=== PATIENT | female | born 1990 | race Caucasian/White ===

== ENCOUNTER 2017-12-17 20:32 | Emergency (ER) | payer MEDICAID, SELFPAY ==
[2017-12-17 20:56] VITALS: BP 123/92; PULSE 89; RESP 18; TEMP 36.9; O2SAT 98; BMI 39.1
--- NOTE | 2017-12-17 21:22 | HMH.EDUTC ---
[facility] [place] Clinical Impression: Environmental allergies Disposition: Home, Self-Care Condition on Discharge: Good Instructions: How to Reduce Environmental Allergens Additional Instructions: Ears look good today. If they had a lot of fluid before, they are much better. Continue Zyrtec Continue Flonase Sleep elevated Change positions slowly Referrals: Israel Mcfarlane MD [Primary Care Provider] - (See primary care or if not available, return to [facility], for any new, worsening or persisting symptoms) Time of Disposition: 21:38 Medical Decision Making Vital Signs: 12/17/17 20:56 Temperature 98.5 F Temperature Source Temporal Artery Scan Pulse Rate [Right Radial] 89 Respiratory Rate 18 Blood Pressure [Right Arm] 123/92 Blood Pressure Mean [Right Arm] 102 02 Sat by Pulse Oximetry 18 L Oxygen Delivery Method Room Air - Jordan Inquiry Pt receiving controlled substance: No [facility] [place] - General Stated complaint: Ear pain, dizziness Time Seen by Provider: 12/17/17 21:22 Mode of Arrival: Family Vehicle Source of Information: Patient Limitations: No Limitations Description of Symptoms (Recalled from Triage Doc. by RN): PT C/O EAR PAIN SINCE 12/13/17. PT HAS BEEN SEEN AND PUT ON PREDNISONE BUT HER EAR IS NOT IMPROVING. HEENT Symptoms (Recalled from RN notes): Yes (EAR PAIN) Resp Symptoms (Recalled from RN notes): No Skin Symptoms (Recalled from RN notes): No MS Symptoms (Recalled from RN notes): No Functional Status (Recalled from RN notes): NA - History of Present Illness Provider Complaint: c/o wanting to see if she has an ear infection. Dizziness intermittently today with kaila ears popping and hearing goes in and out with the popping . Denies ear pain. Reports she was seen on 12/13 for HTN and ears were bothersome then. PCP, Shaniqua, saw a lot of fluid she said behind her ear drums. Was started on steroids. Finished them yesterday. Already taking zyrtec and using flonase daily - Related Data Home Medications Medication Instructions Recorded Confirmed Cetirizine HCl 10 mg PO DAILY 12/17/17 12/17/17 Ibuprofen [Ibuprofen 600mg Tab] 600 mg PO Q6 12/17/17 12/17/17 raNITIdine HCl [Acid Control] 150 mg PO DAILY 12/17/17 12/17/17 Allergies Allergy/AdvReac Type Severity Reaction Status Date / Time amoxicillin [AMOXICILLIN] Allergy Unknown Verified 12/17/17 20:58 Penicillins [PENICILLINS] Allergy Unknown Verified 12/17/17 20:58 - Worker's Comp Is this a Worker's Comp case?: No [facility] History I have reviewed the patient's past medical history: Yes Medical History: Reports:: Gastroesophageal Reflux Disease(GERD) Denies:: Cancer, Diabetes Mellitus Type 1, Diabetes Mellitus Type 2, Hypertension, MRSA Other Medical History: Reports: Other (headaches, allergies) Other Surgeries: Yes: Appendectomy, Amputation: No Fractures: No - Social History Smoking Status: Never smoker Alcohol Intake: never - Psychiatric History Expresses thoughts of harming self/others: None Suicide Plan Description: No Plan ROS Obtained: Yes Systems reviewed as appropriate & no additional complaints - Constitutional Constitutional: Denies body ache, Denies chills, Denies fatigue, Denies fever(s), Denies poor appetite - Eyes Eyes: Denies eye discharge, Denies itchy eyes, Denies other (eye redness) - ENT Ears, Nose, Mouth, and Throat: Reports as per HPI, Denies difficulty swallowing, Denies ear discharge, Denies nasal congestion, Reports nasal discharge, Denies pain with swallowing, Reports post nasal drip, Denies sore throat - Cardiovascular Cardiovascular: Denies chest pain, Denies irregular heart rhythm - Respiratory Respiratory: No cough - Gastrointestinal Gastrointestingal: Denies: nausea, vomiting - Musculoskeletal Musculoskeletal: Denies neck pain - Integumentary/Breasts Skin/Breast: Denies rash - Neurologic Neurologic: Reports as per HPI, Reports dizziness (with rapid change position or
--- NOTE | 2017-12-17 21:28 | ED_ITS ---
[facility] [place] Disposition Clinical Impression: Environmental allergies Disposition: Home, Self-Care Condition on Discharge: Good Instructions: How to Reduce Environmental Allergens Additional Instructions: Ears look good today. If they had a lot of fluid before, they are much better. Continue Zyrtec Continue Flonase Sleep elevated Change positions slowly Referrals: Israel Mcfarlane MD [Primary Care Provider] - (See primary care or if not available, return to [facility], for any new, worsening or persisting symptoms) Time of Disposition: 21:38 Medical Decision Making Vital Signs: 12/17/17 20:56 Temperature 98.5 F Temperature Source Temporal Artery Scan Pulse Rate [Right Radial] 89 Respiratory Rate 18 Blood Pressure [Right Arm] 123/92 Blood Pressure Mean [Right Arm] 102 02 Sat by Pulse Oximetry 18 L Oxygen Delivery Method Room Air - Jordan Inquiry Pt receiving controlled substance: No [facility] [place] HPI - General Stated complaint: Ear pain, dizziness Time Seen by Provider: 12/17/17 21:22 Mode of Arrival: Family Vehicle Source of Information: Patient Limitations: No Limitations Description of Symptoms (Recalled from Triage Doc. by RN): PT C/O EAR PAIN SINCE 12/13/17. PT HAS BEEN SEEN AND PUT ON PREDNISONE BUT HER EAR IS NOT IMPROVING. HEENT Symptoms (Recalled from RN notes): Yes (EAR PAIN) Resp Symptoms (Recalled from RN notes): No Skin Symptoms (Recalled from RN notes): No MS Symptoms (Recalled from RN notes): No Functional Status (Recalled from RN notes): NA - History of Present Illness Provider Complaint: c/o wanting to see if she has an ear infection. Dizziness intermittently today with kaila ears popping and hearing goes in and out with the popping . Denies ear pain. Reports she was seen on 12/13 for HTN and ears were bothersome then. PCP, Shaniqua, saw a lot of fluid she said behind her ear drums. Was started on steroids. Finished them yesterday. Already taking zyrtec and using flonase daily - Related Data Home Medications Medication Instructions Recorded Confirmed Cetirizine HCl 10 mg PO DAILY 12/17/17 12/17/17 Ibuprofen [Ibuprofen 600mg Tab] 600 mg PO Q6 12/17/17 12/17/17 raNITIdine HCl [Acid Control] 150 mg PO DAILY 12/17/17 12/17/17 Allergies Allergy/AdvReac Type Severity Reaction Status Date / Time amoxicillin [AMOXICILLIN] Allergy Unknown Verified 12/17/17 20:58 Penicillins [PENICILLINS] Allergy Unknown Verified 12/17/17 20:58 - Worker's Comp Is this a Worker's Comp case?: No [facility] History I have reviewed the patient's past medical history: Yes Medical History: Reports:: Gastroesophageal Reflux Disease(GERD) Denies:: Cancer, Diabetes Mellitus Type 1, Diabetes Mellitus Type 2, Hypertension, MRSA Other Medical History: Reports: Other (headaches, allergies) Other Surgeries: Yes: Appendectomy, Amputation: No Fractures: No - Social History Smoking Status: Never smoker Alcohol Intake: never - Psychiatric History Expresses thoughts of harming self/others: None Suicide Plan Description: No Plan ROS Obtained: Yes Systems reviewed as appropriate & no additional complaints - Constitutional Constitutional: Denies body ache, Denies chills, Denies fatigue, Denies fever(s) , Denies poor appetite - Eyes Eyes: Denies eye discharge, Denies itchy eyes, Denies other (eye redness) - ENT Ears, Nose, Mouth, an
[2017-12-17 21:41] VITALS: BP 118/75; PULSE 86; RESP 16; TEMP 36.9; O2SAT 98
== END 2017-12-17 21:43 | disposition home or self-care (01) ==
PROVIDERS: Emergency Provider Nurse Practitioner Family; Family Provider Internal Medicine Adolescent Medicine; PCP Internal Medicine Adolescent Medicine
DX: R42 Dizziness and giddiness (principal); K21.9 Gastro-esophageal reflux disease without esophagitis; Z88.0 Allergy status to penicillin; Z88.1 Allergy status to other antibiotic agents; Z91.09 Other allergy status, other than to drugs and biological substances
CPT/HCPCS: 99202

== ENCOUNTER → 2018-04-04 11:48 | Outpatient (CLI) | payer MEDICAID, SELFPAY ==
[2018-04-04 12:48] LABS: Thyroid Stimulating Hormone 2.55 uIU/ml (0.358-3.740)
[2018-04-06 06:19] LABS: Vitamin B12 529 pg/mL (232-1245); Vitamin D 25 Hydroxy 28.2 ng/mL (30.0-100.0)
== END ==
PROVIDERS: Visit Provider Nurse Practitioner Family
DX: R20.2 Paresthesia of skin (principal)
CPT/HCPCS: 36415; 82607; 82652; 84443

== ENCOUNTER → 2020-04-29 11:34 | Outpatient (CLI) | payer OTHER, SELFPAY ==
[2020-04-29 13:16] LABS: Chloride 100 mmol/L (98-107); Sodium 137 mmol/L (136-145)
[2020-04-29 13:17] LABS: Potassium 4.1 mmoL/L (3.5-5.1)
[2020-04-29 13:19] LABS: Alanine Aminotransferase 16 U/L (12-78); Albumin Level 4.2 g/dl (3.5-5.0); Albumin/Globulin Ratio 1.5 (1.1-1.8); Alkaline Phosphatase 73 U/L (38-126); Anion Gap 14.1 mEq/L (5-15); Aspartate Amino Transferase 19 U/L (14-36); Bilirubin,Total 0.3 mg/dl (0.2-1.3); Blood Urea Nitrogen 7 mg/dl (7-17); Carbon Dioxide 27 mmol/L (22.0-30.0); Cholesterol 173 mg/dl (140-200); Estimated Glomerular Filt Rate 98 ml/min (>60); GFR (African American) 118 ML/MIN (>60); Globulin 2.8 g/dL (1.3-3.2); Triglycerides 173 mg/dl (30-150); VLDL Cholesterol 35 mg/dL (0-40)
[2020-04-29 13:20] LABS: Calcium 9.3 mg/dl (8.4-10.2); Chol/HDL Ratio 4.7 (1-3.5); Glucose 79 mg/dl (74-100); HDL Cholesterol 37 mg/dl (40-60)
[2020-04-29 13:31] LABS: Direct LDL Cholesterol 103.85 mg/dL (100-129)
[2020-04-29 13:36] LABS: HCG,Quantitative < 2 mIU/ml (0-5.42)
== END ==
PROVIDERS: Visit Provider Nurse Practitioner Family
DX: Z00.00 Encounter for general adult medical examination without abnormal findings (principal); N92.6 Irregular menstruation, unspecified; I10 Essential (primary) hypertension
CPT/HCPCS: 36415; 80053; 80061; 84702

== ENCOUNTER 2020-10-06 18:27 | Emergency (ER) | payer OTHER, SELFPAY ==
[2020-10-06 18:32] VITALS: BP 158/90; PULSE 92; RESP 18; TEMP 37.2; O2SAT 98; BMI 44.8
--- NOTE | 2020-10-06 18:56 | XR_ITS ---
PROCEDURE: XR CHEST PORTABLE CLINICAL HISTORY: chest pain COMPARISON: CR CXR2V XR chest 2V from 04/02/2018 CR CXR2V XR chest 2V from 09/27/[address] angio chest from 09/27/2018 FINDINGS: The cardiomediastinal silhouette and pulmonary vascularity are within normal limits. The lungs are clear without infiltrates, suspicious nodules, or pleural effusions. No acute bony abnormalities. IMPRESSION: No acute findings. Dictated by: Maury Seay MD 10/06/2020 22:18 Maury Seay MD in [place] 10/06/2020 22:18
--- NOTE | 2020-10-06 18:57 | HMH.EDGENADL ---
ED Disposition Clinical Impression: Pneumonia Qualifiers: Pneumonia type: due to unspecified organism Laterality: right Lung location: lower lobe of lung Qualified Code(s): J18.9 - Pneumonia, unspecified organism Low back strain Qualifiers: Encounter type: initial encounter Qualified Code(s): S39.012A - Strain of muscle, fascia and tendon of lower back, initial encounter Disposition: Home, Self-Care Condition on Discharge: Good Prescriptions: Doxycycline Hyclate [Doxycycline 100mg Capsule] 100 mg PO BID 10 Days #20 cap Transmission Status: Pending to [facility] # methocarbamoL [Robaxin 750mg Tab] 750 mg PO BID PRN 4 Days #8 tab PRN Reason: back pain Transmission Status: Pending to [facility] # Referrals: Israel Mcfarlane MD [Primary Care Provider] - - Critical Care Critical Care Time: No Attestation: On 10/06/20, the high probability of a clinically significant, sudden or life threatening deterioration of the following system(s) required my full and direct attention, intervention and personal management. The time I documented below is in addition to time spent performing reported procedures but includes the following listed in this critical care notation. Medical Decision Making - Medical Records Medical records reviewed: Yes: I reviewed the patient's medical records. - Jordan Inquiry Pt receiving controlled substance: No Vital Signs: 10/06/20 18:32 Temperature 98.9 F Temperature Source Oral Pulse Rate [Right Radial] 92 H Respiratory Rate 18 Blood Pressure [Right Arm] 158/90 H Blood Pressure Mean [Right Arm] 112 Blood Pressure Source [Right Arm] Automatic Cuff Blood Pressure Position [Right Arm] Sitting 02 Sat by Pulse Oximetry 98 Oxygen Delivery Method Room Air - Lab Data Lab Results 10/06/20 19:25: WBC 8.5, RBC 4.53, Hgb 11.7 L, Hct 35.3 L, MCV 77.9 L, MCH 25.9 L, MCHC 33.2, RDW 14.3, Plt Count 455 H, MPV 7.1 L, Neut % (Auto) 62.6, Lymph % (Auto) 29.7, [place] % (Auto) 4.9, Eos % (Auto) 2.4, Baso % (Auto) 0.4, Neut # (Auto) 5.3, Lymph # (Auto) 2.5, [place] # (Auto) 0.4, Eos # (Auto) 0.2, Baso # (Auto) 0.0 10/06/20 19:25: Sodium 138, Potassium 3.9, Chloride 103, Carbon Dioxide 26, Anion Gap 12.9, BUN 6 L, Creatinine 0.70, Estimated Creat Clear 92, Estimated GFR 98, Est GFR ( Amer) 118, Glucose 106 H, Calcium 9.4, Total Bilirubin 0.2, AST 20, ALT 12, Alkaline Phosphatase 89, Troponin I < 0.01, Total Protein 8.0, Albumin 4.5, Globulin 3.5 H, Albumin/Globulin Ratio 1.3 Result diagrams: 10/06/20 19:25 10/06/20 19:25 Orders (Tests/Meds): ED MEDICATIONS Discontinued Medications Generic Name Dose Route Start Last Admin Trade Name Freq PRN Reason Stop Dose Admin Diazepam 5 mg 10/06/20 18:56 Diazepam 5mg Tablet PO 10/06/20 18:57 ONCE ONE Ketorolac Tromethamine 15 mg 10/06/20 18:56 Ketorolac 30mg/Ml Vial IV 10/06/20 18:57 ONCE ONE ORDERS Category Date Time Status XR chest portable Stat Exams 10/06/20 18:56 Taken Comprehensive Metabolic Panel Stat Lab 10/06/20 19:25 Results TSH [Thyroid Stimulating Hormone] Stat Lab 10/06/20 19:25 Results Troponin I Q3H Lab 10/06/20 22:00 Ordered Troponin I Q3H Lab 10/07/20 01:00 Ordered Troponin I Stat Lab 10/06/20 19:25 Results - Radiology Data #1 Image(s): Chest Image Reviewed: Yes I reviewed the patient's radiology image Preliminary Findings: Abnormal Mild right lower lobe airspace disease concerning for possible pneumonia. - ECG Data Tracing #1 I reviewed this ECG and interpreted as documented below: ECG normal with no acute: arrhythmias, ischemia, conduction abnormalities, chamber hypertrophy Normal Sinus Rhythm: Yes Medical Decision Narrative: 30-year-old female who presents with 3 months of subacute lower back pain that is rating into the shoulders and over the last day has had anterior sternal border pain. She is overall well-appearing and nontoxic on
--- NOTE | 2020-10-06 19:09 | ECG_ITS ---
APPROVED REPORT Exam: Resting ECG HR:78 bpm ECG Measurements Heart Rate 78 AXES ND 142 P 27 QRSd 82 QRS 0 QT 374 T 17 QTc 426 Conclusion Normal sinus rhythm Minimal voltage criteria for LVH, Old ST-T wave inversions in the anterior leads Electronically signed by : Israel Mcfarlane, 10/07/2020 17:29:05
[2020-10-06 19:32] LABS: Basophils % 0.4 % (0.1-2.0); Eosinophils # 0.2 K/mm3 (0.0-0.4); Eosinophils % 2.4 % (0.1-12.0); Hematocrit 35.3 % (37.0-47.0); Hemoglobin 11.7 g/dL (12.2-16.2); Lymphocytes # 2.5 K/mm3 (0.7-4.5); Lymphocytes % 29.7 % (10-50); Mean Corpuscular HGB Conc 33.2 g/dL (31.8-35.4); Mean Corpuscular Hemoglobin 25.9 pg (27.0-31.2); Mean Corpuscular Volume 77.9 fl (81-99); Mean Platelet Volume 7.1 fl (7.4-10.4); Monocytes # 0.4 K/mm3 (0.1-1.0); Monocytes % 4.9 % (1.7-9.3); Neutrophils # 5.3 K/mm3 (1.8-7.8); Neutrophils % 62.6 % (37.0-80.0); Platelet Count 455 K/mm3 (142-424); Red Blood Count 4.53 M/mm3 (4.20-5.40); Red Cell Distribution Width 14.3 % (11.5-17.5); White Blood Count 8.5 K/mm3 (4.8-10.8)
[2020-10-06 19:37] LABS: Chloride 103 mmol/L (98-107); Potassium 3.9 mmoL/L (3.5-5.1); Sodium 138 mmol/L (136-145)
[2020-10-06 19:40] LABS: Alanine Aminotransferase 12 U/L (12-78); Albumin Level 4.5 g/dl (3.5-5.0); Albumin/Globulin Ratio 1.3 (1.1-1.8); Alkaline Phosphatase 89 U/L (38-126); Anion Gap 12.9 mEq/L (5-15); Aspartate Amino Transferase 20 U/L (14-36); Bilirubin,Total 0.2 mg/dl (0.2-1.3); Blood Urea Nitrogen 6 mg/dl (7-17); Carbon Dioxide 26 mmol/L (22.0-30.0); Creatinine Clearance Estimated 92 mL/min (50-200); Estimated Glomerular Filt Rate 98 ml/min (>60); GFR (African American) 118 ML/MIN (>60); Globulin 3.5 g/dL (1.3-3.2)
[2020-10-06 19:41] LABS: Calcium 9.4 mg/dl (8.4-10.2); Glucose 106 mg/dl (74-100)
[2020-10-06 20:02] LABS: Troponin I < 0.01 ng/ml (0.00-0.034)
[2020-10-06 20:11] LABS: Thyroid Stimulating Hormone 2.41 uIU/mL (0.465-4.68)
[2020-10-06 20:48] VITALS: BP 132/78; PULSE 75; RESP 17; TEMP 36.8; O2SAT 98
== END 2020-10-06 20:50 | disposition home or self-care (01) ==
PROVIDERS: Emergency Provider Student in an Organized Health Care Education/Training Program; PCP Internal Medicine Adolescent Medicine
DX: J18.9 Pneumonia, unspecified organism (principal); S39.012A Strain of muscle, fascia and tendon of lower back, initial encounter; K21.9 Gastro-esophageal reflux disease without esophagitis; Z88.0 Allergy status to penicillin
CPT/HCPCS: 71045; 80053; 84443; 84484; 85025; 93005; 96365; 96375; 99283

== ENCOUNTER 2022-01-06 18:19 | Emergency (ER) | payer OTHER, SELFPAY ==
[2022-01-06 18:54] VITALS: BP 131/95; PULSE 78; RESP 17; TEMP 37.1; O2SAT 98; BMI 34.3
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
--- NOTE | 2022-01-06 19:57 | XR_ITS ---
PROCEDURE INFORMATION: Exam: XR Left Shoulder Exam date and time: 01/06/2022 8:05 PM Age: 31 years old Clinical indication: Patient HX: Left shoulder pain, no injury. Tubal ligation per patient. TECHNIQUE: Imaging protocol: XR Left shoulder. Views: 2 or more views. COMPARISON: CR XR CHEST PORTABLE 01/06/2022 8:03 PM FINDINGS: Bones/joints: Normal. Soft tissues: Normal. IMPRESSION: No acute findings.
--- NOTE | 2022-01-06 19:57 | XR_ITS ---
PROCEDURE INFORMATION: Exam: XR Chest Exam date and time: 01/06/2022 8:03 PM Age: 31 years old Clinical indication: Pain; Left-sided; Additional info: Left shoulder pain TECHNIQUE: Imaging protocol: XR of the chest. Views: 1 view. COMPARISON: CR XR CHEST PORTABLE 10/06/2020 7:14 PM FINDINGS: Lungs: Stable granuloma within the right mid lung. No consolidation. Pleural spaces: No pneumothorax. Heart/Mediastinum: No cardiomegaly. Bones/joints: No acute abnormality. IMPRESSION: No acute findings.
--- NOTE | 2022-01-06 19:57 | HMH.EDGENADL ---
ED Disposition Clinical Impression: Cervical nerve root impingement Cervical strain Qualifiers: Encounter type: initial encounter Qualified Code(s): S16.1XXA - Strain of muscle, fascia and tendon at neck level, initial encounter Disposition: Home, Self-Care Condition on Discharge: Good Instructions: DI for Cervical Radiculopathy, DI for Cervical Muscle Strain Additional Instructions: You have been evaluated for neck pain, diagnosed with cervical strain and radiculopathy. Please take anti-inflammatory medicine like naproxen twice daily. Take short course steroids. Try to perform stretching and strengthening exercises. Follow-up with your primary care doctor. You may need an MRI in the future if pain does not resolve. Return to the emergency department for any new or worsening symptoms, numbness or weakness in your hand, fevers, chills, other concerns. Prescriptions: Naproxen [Naproxen 500mg tab] 500 mg PO BID #30 tab Transmission Status: Pending to [facility] predniSONE [Prednisone 20mg Tab] 20 mg PO DAILY #4 tab Transmission Status: Pending to [facility] Referrals: Israel Mcfarlane MD [Primary Care Provider] - Time of Disposition: 20:50 - Critical Care Critical Care Time: No Attestation: On 01/06/22, the high probability of a clinically significant, sudden or life threatening deterioration of the following system(s) required my full and direct attention, intervention and personal management. The time I documented below is in addition to time spent performing reported procedures but includes the following listed in this critical care notation. Medical Decision Making - Medical Records Medical records reviewed: Yes: I reviewed the patient's medical records. - Jordan Inquiry Pt receiving controlled substance: No Vital Signs: 01/06/22 18:54 01/06/22 21:00 Temperature 98.7 F 98.2 F Temperature Source Oral Oral Pulse Rate 80 Pulse Rate [Left Radial] 78 Respiratory Rate 17 18 Blood Pressure 137/91 H Blood Pressure [Right Arm] 131/95 H Blood Pressure Mean [Right Arm] 107 02 Sat by Pulse Oximetry 98 Oxygen Delivery Method Room Air Orders (Tests/Meds): ED MEDICATIONS Discontinued Medications Generic Name Dose Route Start Last Admin Trade Name Freq PRN Reason Stop Dose Admin Ketorolac Tromethamine 30 mg 01/06/22 19:58 01/06/22 20:14 Ketorolac 30mg/Ml Vial IM 01/06/22 19:59 30 mg ONCE ONE Administration Methylprednisolone Acetate 40 mg 01/06/22 19:58 01/06/22 20:15 Methylprednisolone Acetate 40mg/Ml Vial IM 01/06/22 19:59 40 mg ONCE ONE Administration Medical Decision Narrative: In summary this is a previously healthy 31-year-old female presenting to the emergency department with left-sided neck pain, radiating into her shoulder and arm. Patient clinically stable on arrival. Vital signs within normal limits. Most likely diagnosis is strain or nerve impingement. Concerned this is due to her injury 3 days ago. However, cannot entirely exclude bone spur, DJD. Will obtain x-rays of the C-spine, chest, left shoulder. Patient given 30 mg IM Toradol and 40 mg of Medrol X-rays of the chest, shoulder, cervical spine show no acute bony abnormality. No compression fracture. No bone spurs. Given that patient's pain has been present for 3 days and started after an injury, will treat conservatively. Given prescription for naproxen and short course of steroids. Instructed on the importance of PCP follow-up. May need MRI in the future if pain does not improve. Stretching and strengthening exercises. Given return precautions. General Adult HPI - General Chief complaint: PAIN Stated complaint: pain Left neck down left arm Time Seen by Provider: 01/06/22 19:59 Mode of Arrival: Ambulatory Source of Information: Patient Limitations: No Limitations Description of Symptoms (Recalled from ER Triage Doc. by RN): pt to ed c/o left arm numbness and tingli
--- NOTE | 2022-01-06 20:48 | PC.NURSE ---
PT REPORTS THAT PAIN HAS IMPROVED AND IS NOW 2/. MADE AWARE.
[2022-01-06 21:00] VITALS: BP 137/91; PULSE 80; RESP 18; TEMP 36.8; O2SAT 99
== END 2022-01-06 21:07 | disposition home or self-care (01) ==
PROVIDERS: Emergency Provider Emergency Medicine; PCP Internal Medicine Adolescent Medicine
DX: S16.1XXA Strain of muscle, fascia and tendon at neck level, initial encounter (principal); G54.2 Cervical root disorders, not elsewhere classified; K21.9 Gastro-esophageal reflux disease without esophagitis; Z88.0 Allergy status to penicillin; Z79.899 Other long term (current) drug therapy
CPT/HCPCS: 71045; 72040; 73030; 96372; J1030

== ENCOUNTER 2022-09-04 08:00 | Emergency (ER) | payer OTHER, SELFPAY ==
[2022-09-04 08:24] VITALS: BP 129/83; PULSE 84; RESP 16; TEMP 37.3; O2SAT 97; BMI 35.6
[2022-09-04 08:25] LABS: UTC Strep Screen (Rapid) Positive (Negative)
--- NOTE | 2022-09-04 09:01 | EXP.UTC ---
Discharge Plan Disposition Patient Disposition: Home, Self-Care Condition: Good Prescriptions Prescriptions: New methylprednisolone 4 mg Tablets,Dose Pack 4 mg PO DIRECTED Qty: 21 0RF cefdinir 300 mg capsule 300 mg PO BID Qty: 20 0RF No Action methocarbamol 750 MG tablet 750 mg PO BID PRN (Reason: back pain) 4 Days Qty: 8 0RF doxycycline hyclate 100 MG capsule 100 mg PO BID 10 Days Qty: 20 0RF prednisone 20 MG tablet 20 mg PO DAILY Qty: 4 0RF naproxen 500 MG tablet 500 mg PO BID Qty: 30 0RF cetirizine 10 MG tablet 10 mg PO DAILY ranitidine HCl [Acid Control (ranitidine)] 150 MG tablet 150 mg PO DAILY amlodipine 5 MG tablet 5 mg PO DAILY Label Comments: take 1 tablet by mouth once daily for high blood pressure fluticasone propionate 50 spray,suspension 1 spr inhalation DAILY Referrals Follow up/Referrals: Israel Mcfarlane MD [Primary Care Provider] - See instructions Activity Restrictions/Add. Instructions Additional Instructions/Restrictions: Drink plenty of fluids. Take tylenol or ibuprofen for pain or fever. Take the medications as directed. Follow up with your regular doctor. GO TO THE ER FOR ANY WORSENING SYMPTOMS Don't start the oral steroids until tomorrow, since you had the shot here today. Clinical Impressions Clinical Impression: Strep throat Instructions Patient Instructions: Strep Throat, DI for Strep Throat Discharge ED Provider: Lev Sosa [facility] [place] General Stated complaint: Sore throat,Both earache (right side hurts more) Mode of Arrival: Ambulatory Source of Information: Patient Limitations: No Limitations Time Seen by Provider: 09/04/22 08:34 HEENT Symptoms (Recalled from RN notes): Yes Resp Symptoms (Recalled from RN notes): No Skin Symptoms (Recalled from RN notes): No MS Symptoms (Recalled from RN notes): No Functional Status (Recalled from RN notes): n/a History of Present Illness Provider Complaint: pt comes in with c/o sore throat and right ear pain. symptoms began yesterday Related Data Home Medications Medication Instructions Recorded Confirmed cetirizine 10 mg tablet 10 mg PO DAILY ALLERGIES 12/17/17 12/23/19 ranitidine HCl 150 mg tablet (Acid 150 mg PO DAILY GERD 12/17/17 12/23/19 Control (ranitidine)) amlodipine 5 mg tablet 5 mg PO DAILY HTN 06/07/18 12/23/19 fluticasone propionate 50 1 spr inhalation DAILY ALLERGIES 06/07/18 12/23/19 mcg/actuation nasal spray,suspension Previous Rx's Medication Instructions Recorded doxycycline hyclate 100 mg capsule 100 mg PO BID 10 days #20 caps 10/06/20 methocarbamol 750 mg tablet 750 mg PO BID PRN back pain 4 days 10/06/20 #8 tabs naproxen 500 mg tablet 500 mg PO BID #30 tabs 01/06/22 prednisone 20 mg tablet 20 mg PO DAILY #4 tabs 01/06/22 cefdinir 300 mg capsule 300 mg PO BID #20 caps 09/04/22 methylprednisolone 4 mg tablets in 4 mg PO DIRECTED #21 tabs 09/04/22 a dose pack Allergies Allergy/AdvReac Type Severity Reaction Status Date / Time amoxicillin [AMOXICILLIN] Allergy Unknown Verified 09/04/22 08:27 Penicillins [PENICILLINS] Allergy Unknown Verified 09/04/22 08:27 Worker's Comp Is this a Worker's Comp case?: No PFSH PFSH Social History Smoking Status: Never smoker alcohol intake: never current occupational status: other Travel in the last 8 weeks: None ROS Obtained: Yes All systems reviewed & no additional complaints except as documented Constitutional Constitutional: Reports chills and Reports fever(s) Eyes Eyes: Denies eye discharge ENT Ears, Nose, Mouth, and Throat: Reports as per HPI Cardiovascular Cardiovascular: Denies chest pain Respiratory Respiratory: Denies chest congestion and Reports cough Gastrointestinal Gastrointestingal: Reports nausea; Denies abdominal pain, constipation, cramping, diarrhea or vomiting Musculoske
[2022-09-04 09:06] VITALS: BP 129/83; PULSE 84; RESP 16; TEMP 37.3
== END 2022-09-04 09:12 | disposition home or self-care (01) ==
PROVIDERS: Emergency Provider Nurse Practitioner Family; PCP Internal Medicine Adolescent Medicine
DX: J02.0 Streptococcal pharyngitis (principal)
CPT/HCPCS: 87880; 96372; 99212; G0463

== ENCOUNTER 2022-10-02 21:24 | Emergency (ER) | payer OTHER, SELFPAY ==
[2022-10-02 21:25] VITALS: BP 144/93; PULSE 80; RESP 17; TEMP 36.8; O2SAT 100; BMI 27.4
[2022-10-02 21:31] VITALS: BP 144/93; PULSE 91; O2SAT 98
--- NOTE | 2022-10-02 21:49 | CT_ITS ---
PROCEDURE INFORMATION: Exam: CT Neck With Contrast Exam date and time: 10/02/2022 10:23 PM Age: 32 years old Clinical indication: Painful swallowing; Additional info: Food bolus cleared, pain TECHNIQUE: Imaging protocol: Computed tomography of the neck with contrast. Radiation optimization: All CT scans at this facility use at least one of these dose optimization techniques: automated exposure control; mA and/or kV adjustment per patient size (includes targeted exams where dose is matched to clinical indication); or iterative reconstruction. Contrast material: ISOVUE; Contrast volume: 75 ml; Contrast route: IV; COMPARISON: CR XR CERVICAL SPINE 3V 01/06/2022 7:57 PM FINDINGS: Pharynx: Prominent tonsillar tissue. No discrete peritonsillar abscess. Larynx: Epiglottis appears normal. Prevertebral and retropharyngeal spaces: Unremarkable. Salivary glands: Normal. Glands are normal in size. Thyroid: Normal. No enlarged or calcified nodules. Lymph nodes: No significant cervical adenopathy. Trachea: Visualized trachea is unremarkable. Lungs: Unremarkable as visualized. Bones/joints: Unremarkable. No acute fracture. Soft tissues: Prevertebral soft tissues appear normal. Parapharyngeal soft tissues appear normal. IMPRESSION: 1. Prevertebral soft tissues appear normal. 2. Epiglottis appears normal. 3. No significant cervical adenopathy. 4. Parapharyngeal soft tissues appear normal. 5. Prominent tonsillar tissue. No discrete peritonsillar abscess.
--- NOTE | 2022-10-02 21:49 | XR_ITS ---
PROCEDURE INFORMATION: Exam: XR Chest Exam date and time: 10/02/2022 10:10 PM Age: 32 years old Clinical indication: Other: Poss food bolus TECHNIQUE: Imaging protocol: Radiologic exam of the chest. Views: 2 views. COMPARISON: CR XR CHEST PORTABLE 01/06/2022 8:03 PM FINDINGS: Lungs: Unremarkable. No consolidation. Pleural spaces: Unremarkable. No pleural effusion. No pneumothorax. Heart/Mediastinum: Unremarkable. No cardiomegaly. Bones/joints: Unremarkable. IMPRESSION: No acute findings.
[2022-10-02 22:01] VITALS: BP 117/81; PULSE 71; O2SAT 97
[2022-10-02 22:01] LABS: Basophils % 0.4 % (0.1-2.0); Eosinophils # 0.1 K/mm3 (0.0-0.4); Eosinophils % 1.4 % (0.1-12.0); Hematocrit 32.6 % (37.0-47.0); Hemoglobin 10.5 g/dL (12.2-16.2); Lymphocytes % 22.4 % (10-50); Mean Corpuscular HGB Conc 32.2 g/dL (31.8-35.4); Mean Corpuscular Hemoglobin 23.6 pg (27.0-31.2); Mean Corpuscular Volume 73.2 fl (81-99); Mean Platelet Volume 7.4 fl (7.4-10.4); Monocytes # 0.4 K/mm3 (0.1-1.0); Monocytes % 4.6 % (1.7-9.3); Neutrophils # 6.2 K/mm3 (1.8-7.8); Neutrophils % 71.1 % (37.0-80.0); Platelet Count 465 K/mm3 (142-424); Red Blood Count 4.46 M/mm3 (4.20-5.40); Red Cell Distribution Width 15.9 % (11.5-17.5); White Blood Count 8.7 K/mm3 (4.8-10.8)
--- NOTE | 2022-10-02 22:02 | HMH.EDNVD ---
Discharge Plan Disposition Patient Disposition: Home, Self-Care Prescriptions Prescriptions: New pantoprazole [Protonix] 40 mg tablet,delayed release (DR/EC) 40 mg PO DAILY Qty: 30 0RF No Action methocarbamol 750 MG tablet 750 mg PO BID PRN (Reason: back pain) 4 Days Qty: 8 0RF doxycycline hyclate 100 MG capsule 100 mg PO BID 10 Days Qty: 20 0RF prednisone 20 MG tablet 20 mg PO DAILY Qty: 4 0RF naproxen 500 MG tablet 500 mg PO BID Qty: 30 0RF methylprednisolone 4 mg Tablets,Dose Pack 4 mg PO DIRECTED Qty: 21 0RF cefdinir 300 mg capsule 300 mg PO BID Qty: 20 0RF cetirizine 10 MG tablet 10 mg PO DAILY ranitidine HCl [Acid Control (ranitidine)] 150 MG tablet 150 mg PO DAILY amlodipine 5 MG tablet 5 mg PO DAILY Label Comments: take 1 tablet by mouth once daily for high blood pressure fluticasone propionate 50 spray,suspension 1 spr inhalation DAILY Referrals Follow up/Referrals: Israel Mcfarlane MD [Primary Care Provider] - See instructions Clinical Impressions Clinical Impression: Dysphagia, Gastroesophageal reflux disease Instructions Patient Instructions: DI for Gastroesophageal Reflux Disease (GERD) Discharge ED Provider: Peter Morales Nausea/Vomiting/Diarrhea HPI General Chief complaint: Nausea/Vomiting/Diarrhea Stated complaint: throat pain from throwing up food Time Seen by Provider: 10/02/22 21:35 Mode of Arrival: Family Vehicle Source of Information: Patient, Spouse and Medical Record Limitations: No Limitations Description of Symptoms (Recalled from ER Triage Doc. by RN): Pt c/o getting food lodged in her throat this evening and she was able to get up . Pt states at first she was not able to get a drink down, but after a 2nd vomit she has been able to swallow liquids well. Denies any difficulty breathing. States she has had this problem before. History of Present Illness HPI Narrative: pt with episode of food sticking in throat with cough and vomiting and has throat pain - has gerd - able to speak and swallow fluids now complaint: nausea and vomiting Onset (ago): hour(s) Severity: moderate Related Data Home Medications Medication Instructions Recorded Confirmed cetirizine 10 mg tablet 10 mg PO DAILY ALLERGIES 12/17/17 12/23/19 ranitidine HCl 150 mg tablet (Acid 150 mg PO DAILY GERD 12/17/17 12/23/19 Control (ranitidine)) amlodipine 5 mg tablet 5 mg PO DAILY HTN 06/07/18 12/23/19 fluticasone propionate 50 1 spr inhalation DAILY ALLERGIES 06/07/18 12/23/19 mcg/actuation nasal spray,suspension Previous Rx's Medication Instructions Recorded doxycycline hyclate 100 mg capsule 100 mg PO BID 10 days #20 caps 10/06/20 methocarbamol 750 mg tablet 750 mg PO BID PRN back pain 4 days 10/06/20 #8 tabs naproxen 500 mg tablet 500 mg PO BID #30 tabs 01/06/22 prednisone 20 mg tablet 20 mg PO DAILY #4 tabs 01/06/22 cefdinir 300 mg capsule 300 mg PO BID #20 caps 09/04/22 methylprednisolone 4 mg tablets in 4 mg PO DIRECTED #21 tabs 09/04/22 a dose pack pantoprazole 40 mg tablet,delayed 40 mg PO DAILY #30 tabs 10/02/22 release (Protonix) Allergies Allergy/AdvReac Type Severity Reaction Status Date / Time amoxicillin [AMOXICILLIN] Allergy Unknown Verified 09/04/22 08:27 Penicillins [PENICILLINS] Allergy Unknown Verified 09/04/22 08:27 [facility] Disclaimer: The information contained in this section may have been updated after the patient was seen, as this information can be updated by other users. Social History Smoking Status: Former smoker alcohol intake: never current occupational status: other Travel in the last 8 weeks: None ROS Obtained: Yes All systems reviewed & no additional complaints except as documented Physical Exam General General appearance: alert Head Head exam: normocephalic Eye Eye exam: Present PERRL and EOMI
[2022-10-02 22:07] LABS: Alanine Aminotransferase 13 U/L (12-78); Albumin Level 4.6 g/dl (3.5-5.0); Albumin/Globulin Ratio 1.5 (1.1-1.8); Alkaline Phosphatase 114 U/L (38-126); Anion Gap 11.6 mEq/L (5-15); Aspartate Amino Transferase 19 U/L (14-36); Bilirubin,Total 0.2 mg/dl (0.2-1.3); Blood Urea Nitrogen 14 mg/dl (7-17); Calcium 9.7 mg/dl (8.4-10.2); Carbon Dioxide 28 mmol/L (22.0-30.0); Chloride 102 mmol/L (98-107); Creatinine Clearance Estimated 86 mL/min (50-200); Estimated Glomerular Filt Rate 64 ml/min (>60); GFR (African American) 77 ML/MIN (>60); Glucose 100 mg/dl (74-100); Potassium 3.6 mmoL/L (3.5-5.1); Sodium 138 mmol/L (136-145); Total Protein,Serum 7.6 g/dl (6.3-8.2)
[2022-10-02 22:10] LABS: HCG Qualitative, Serum Negative (Negative)
--- NOTE | 2022-10-02 22:19 | PC.NURSE ---
patient out of room for CT @ this time.
--- NOTE | 2022-10-02 22:28 | PC.NURSE ---
pt back from ct scan
[2022-10-02 22:30] VITALS: BP 111/78; PULSE 75; O2SAT 98
[2022-10-02 23:01] VITALS: BP 114/67; PULSE 81; O2SAT 98
[2022-10-02 23:23] VITALS: BP 115/70; PULSE 81; RESP 18; TEMP 36.6; O2SAT 97
== END 2022-10-02 23:26 | disposition home or self-care (01) ==
PROVIDERS: Emergency Provider Emergency Medicine; PCP Internal Medicine Adolescent Medicine
DX: T18.128A Food in esophagus causing other injury, initial encounter (principal); M54.9 Dorsalgia, unspecified; R13.10 Dysphagia, unspecified; R11.2 Nausea with vomiting, unspecified; K21.9 Gastro-esophageal reflux disease without esophagitis; Z79.51 Long term (current) use of inhaled steroids; Z79.52 Long term (current) use of systemic steroids; Z79.899 Other long term (current) drug therapy; Z88.0 Allergy status to penicillin; Z88.1 Allergy status to other antibiotic agents; Z88.3 Allergy status to other anti-infective agents; Z87.891 Personal history of nicotine dependence
CPT/HCPCS: 70491; 71046; 80053; 84703; 85025; 96361; 96374; 96375; 99285; Q9967

== ENCOUNTER 2023-01-20 12:04 | Emergency (ER) | payer OTHER, SELFPAY ==
[2023-01-20 12:15] VITALS: BP 119/68; PULSE 55; RESP 22; TEMP 36.9; O2SAT 98; BMI 38.0
--- NOTE | 2023-01-20 12:23 | XR_ITS ---
FINAL REPORT CLINICAL HISTORY: pain FINDINGS: LEFT WRIST Three views demonstrate no acute fracture or dislocation. The visualized joint spaces are normally aligned. The joint spaces are intact. The soft tissues are unremarkable. IMPRESSION: No acute bony abnormality. Reviewed, Interpreted and Dictated by Bijan Orr MD Transcribed by Bianka Barron Authenticated and [facility]
--- NOTE | 2023-01-20 12:24 | XR_ITS ---
FINAL REPORT CLINICAL HISTORY: Fall FINDINGS: LEFT FOREARM 2 views of the left forearm were obtained. There is no acute fracture or dislocation. The joints are intact. There are no soft tissue abnormalities. IMPRESSION: No acute process. Reviewed, Interpreted and Dictated by Bijan Orr MD Transcribed by Bianka Barron Authenticated and . [facility]
--- NOTE | 2023-01-20 12:37 | EXP.UTC ---
Discharge Plan Disposition Patient Disposition: Home, Self-Care Condition: Good Prescriptions Prescriptions: No Action methocarbamol 750 MG tablet 750 mg PO BID PRN (Reason: back pain) 4 Days Qty: 8 0RF doxycycline hyclate 100 MG capsule 100 mg PO BID 10 Days Qty: 20 0RF prednisone 20 MG tablet 20 mg PO DAILY Qty: 4 0RF naproxen 500 MG tablet 500 mg PO BID Qty: 30 0RF methylprednisolone 4 mg Tablets,Dose Pack 4 mg PO DIRECTED Qty: 21 0RF cefdinir 300 mg capsule 300 mg PO BID Qty: 20 0RF cetirizine 10 MG tablet 10 mg PO DAILY ranitidine HCl [Acid Control (ranitidine)] 150 MG tablet 150 mg PO DAILY amlodipine 5 MG tablet 5 mg PO DAILY Label Comments: take 1 tablet by mouth once daily for high blood pressure fluticasone propionate 50 spray,suspension 1 spr inhalation DAILY pantoprazole [Protonix] 40 mg tablet,delayed release (DR/EC) 40 mg PO DAILY Qty: 30 0RF Referrals Follow up/Referrals: Shaniqua Rojas APRN [Primary Care Provider] - See instructions Activity Restrictions/Add. Instructions Additional Instructions/Restrictions: *RICE, Rest the extremity, Ice 15-20 minutes 3-4 times daily, Compress- wear the marta wrap as discussed as much as possible to help reduce swelling and pain, Elevate the extremity when at rest *wrist splint is for support and help control swelling, use it except in the shower. Be sure that is not to tight but not to loose either *Elevate when resting? *Ibuprofen 600-800mg every 6-8 hours as needed for pain an inflammation. If need something more can take Tylenol in between doses of Ibuprofen to help Immediately follow up with your family doctor for new or worsening of symptoms, or no noticeable improvement over the next 3-5 days Clinical Impressions Clinical Impression: Acute wrist pain Qualifiers: Laterality: left Qualified Code(s): M25.532 - Pain in left wrist Instructions Patient Instructions: How To Perform RICE (Rest, Ice, Compress, Elevate), DI for Wrist Pain Discharge ED Provider: Carmen Ibanez [facility] General Stated complaint: Left Wrist Swollen and painful Mode of Arrival: Ambulatory Source of Information: Patient Limitations: No Limitations Time Seen by Provider: 04/06/23 12:37 Description of Symptoms (Recalled from Triage Doc. by RN): PATIENT C/O PAIN TO LEFT WRIST AND FOREARM THAT RADIATES TO ELBOW SINCE THIS MORNING. NO KNOWN INJURY HEENT Symptoms (Recalled from RN notes): No Resp Symptoms (Recalled from RN notes): No Skin Symptoms (Recalled from RN notes): No MS Symptoms (Recalled from RN notes): Yes Functional Status (Recalled from RN notes): WNL History of Present Illness Provider Complaint: Patient states that she woke up this morning having pain in her left wrist that will shoot up into her forearm with certain movements Denies known injury States that she just woke up this way no swelling no redness, no bruising Related Data Home Medications Medication Instructions Recorded Confirmed cetirizine 10 mg tablet 10 mg PO DAILY ALLERGIES 12/17/17 12/23/19 ranitidine HCl 150 mg tablet (Acid 150 mg PO DAILY GERD 12/17/17 12/23/19 Control (ranitidine)) amlodipine 5 mg tablet 5 mg PO DAILY HTN 06/07/18 12/23/19 fluticasone propionate 50 1 spr inhalation DAILY ALLERGIES 06/07/18 12/23/19 mcg/actuation nasal spray,suspension Previous Rx's Medication Instructions Recorded doxycycline hyclate 100 mg capsule 100 mg PO BID 10 days #20 caps 10/06/20 methocarbamol 750 mg tablet 750 mg PO BID PRN back pain 4 days 10/06/20 #8 tabs naproxen 500 mg tablet 500 mg PO BID #30 tabs 01/06/22 prednisone 20 mg tablet 20 mg PO DAILY #4 tabs 01/06/22 cefdinir 300 mg capsule 300 mg PO BID #20 caps 09/04/22 methylprednisolone 4 mg tablets in 4 mg PO DIRECTED #21 tabs 09/04/22 a dose pack pantoprazole 40 mg tablet,delayed 40 mg PO DAILY #30 tabs 10/02/22 release (Protonix) Allergies A
[2023-01-20 12:51] VITALS: BP 119/68; PULSE 55; RESP 22; TEMP 36.9; O2SAT 98
== END 2023-01-20 13:00 | disposition home or self-care (01) ==
PROVIDERS: Emergency Provider Nurse Practitioner; PCP Nurse Practitioner Family
DX: M25.532 Pain in left wrist (principal); Z87.891 Personal history of nicotine dependence
CPT/HCPCS: 73090; 73110; 99212; 99213; 99214; G0463

== ENCOUNTER 2023-05-01 20:54 | Emergency (ER) | payer OTHER, SELFPAY ==
[2023-05-01 21:05] VITALS: BP 128/71; PULSE 66; RESP 14; TEMP 37; O2SAT 98; BMI 40.9
--- NOTE | 2023-05-01 21:19 | ECG_ITS ---
APPROVED REPORT Exam: Resting ECG HR:58 bpm ECG Measurements Heart Rate 58 AXES [place] 152 P 30 QRSd 101 QRS 37 QT 408 T 16 QTc 406 Conclusion SINUS BRADYCARDIA WITH MARKED SINUS ARRHYTHMIA LOW QRS VOLTAGE IN PRECORDIAL LEADS [QRS DEFLECTION < 1.0 mV IN CHEST LEADS] BORDERLINE ECG UNCONFIRMED REPORT Electronically signed by : Israel Mcfarlane MD 05/02/2023 07:09:32
--- NOTE | 2023-05-01 21:39 | HMH.EDGENADL ---
Discharge Plan Disposition Patient Disposition: Home, Self-Care Prescriptions Prescriptions: New ibuprofen 800 mg tablet 800 mg PO TID PRN (Reason: pain) 7 Days Qty: 20 0RF cyclobenzaprine 5 mg tablet 5 mg PO TID PRN (Reason: muscle spasm) 5 Days Qty: 15 0RF No Action methocarbamol 750 MG tablet 750 mg PO BID PRN (Reason: back pain) 4 Days Qty: 8 0RF doxycycline hyclate 100 MG capsule 100 mg PO BID 10 Days Qty: 20 0RF prednisone 20 MG tablet 20 mg PO DAILY Qty: 4 0RF naproxen 500 MG tablet 500 mg PO BID Qty: 30 0RF methylprednisolone 4 mg Tablets,Dose Pack 4 mg PO DIRECTED Qty: 21 0RF cefdinir 300 mg capsule 300 mg PO BID Qty: 20 0RF cetirizine 10 MG tablet 10 mg PO DAILY ranitidine HCl [Acid Control (ranitidine)] 150 MG tablet 150 mg PO DAILY amlodipine 5 MG tablet 5 mg PO DAILY Patient Comments: take 1 tablet by mouth once daily for high blood pressure fluticasone propionate 50 spray,suspension 1 spr inhalation DAILY pantoprazole [Protonix] 40 mg tablet,delayed release (DR/EC) 40 mg PO DAILY Qty: 30 0RF Referrals Follow up/Referrals: Israel Mcfarlane MD [Primary Care Provider] - See instructions Activity Restrictions/Add. Instructions Additional Instructions/Restrictions: Your symptoms today are consistent with a trapezius strain on the right side of your body. This is not consistent with a cervical thoracic spinal abnormality. There is no evidence of any swelling redness fever to suggest an infection. Please return with any different symptoms otherwise this will be treated supportively as discussed. Clinical Impressions Clinical Impression: Strain of right trapezius muscle Instructions Patient Instructions: DI for Neck Pain Discharge ED Provider: Zenaida Mack General Adult HPI General Chief complaint: Neck Pain/Injury Stated complaint: neck and shoulder pain Time Seen by Provider: 05/01/23 21:30 Mode of Arrival: Family Vehicle Source of Information: Patient Limitations: No Limitations Description of Symptoms (Recalled from ER Triage Doc. by RN): 33 yo female states she woke up with her right arm being initially numb upon awakening, and the right side of her neck and shoulder painful. Patient demonstrates full ROM of neck but states it is more painful to turn to the right. No medications taken or attempts at resolution prior to arrival. History of Present Illness HPI narrative: Patient is a 33-year-old female here with pain over her right aspect of her trapezius paraspinal area right thoracic spine and neck. Patient states she does repetitive activities such as cleaning and chasing her children regularly which could have been preceding events today. There is no redness or swelling no fever. No difficulty with movement no injuries. She has no radiation of her symptoms. No neurologic symptoms historically on my assessment. Related Data Home Medications Medication Instructions Recorded Confirmed cetirizine 10 mg tablet 10 mg PO DAILY ALLERGIES 12/17/17 12/23/19 ranitidine HCl 150 mg tablet (Acid 150 mg PO DAILY GERD 12/17/17 12/23/19 Control (ranitidine)) amlodipine 5 mg tablet 5 mg PO DAILY HTN 06/07/18 12/23/19 fluticasone propionate 50 1 spr inhalation DAILY ALLERGIES 06/07/18 12/23/19 mcg/actuation nasal spray,suspension Previous Rx's Medication Instructions Recorded doxycycline hyclate 100 mg capsule 100 mg PO BID 10 days #20 caps 10/06/20 methocarbamol 750 mg tablet 750 mg PO BID PRN back pain 4 days 10/06/20 #8 tabs naproxen 500 mg tablet 500 mg PO BID #30 tabs 01/06/22 prednisone 20 mg tablet 20 mg PO DAILY #4 tabs 01/06/22 cefdinir 300 mg capsule 300 mg PO BID #20 caps 09/04/22 methylprednisolone 4 mg tablets in 4 mg PO DIRECTED #21 tabs 09/04/22 a dose pack pantoprazole 40 mg tablet,delayed 40 mg PO DAILY #30 tabs 10/02/22 release (Protonix) cyclobenzaprine 5 mg tablet 5 mg PO TI
[2023-05-01 21:51] VITALS: BP 122/58; PULSE 72; RESP 16; TEMP 36.9
== END 2023-05-01 22:13 | disposition home or self-care (01) ==
PROVIDERS: Emergency Provider Student in an Organized Health Care Education/Training Program; PCP Internal Medicine Adolescent Medicine
DX: S46.911A Strain of unspecified muscle, fascia and tendon at shoulder and upper arm level, right arm, initial encounter (principal); M54.6 Pain in thoracic spine; X50.3XXA Overexertion from repetitive movements, initial encounter; F17.200 Nicotine dependence, unspecified, uncomplicated
CPT/HCPCS: 93005; 99283

== ENCOUNTER 2023-09-26 11:17 | Emergency (ER) | payer OTHER, SELFPAY ==
[2023-09-26 11:18] VITALS: BP 125/86; PULSE 77; RESP 15; TEMP 36.9; O2SAT 100; BMI 40.2
--- NOTE | 2023-09-26 11:51 | XR_ITS ---
FINAL REPORT CLINICAL HISTORY: pain FINDINGS: LEFT RIBS 3 views were obtained. There is no acute fracture or dislocation. Visualized joint spaces are normally aligned. Soft tissues are unremarkable. IMPRESSION: No acute bony abnormality. Reviewed, Interpreted and Dictated by Bijan Orr MD Transcribed by Emily Mosquera Authenticated and [facility]
--- NOTE | 2023-09-26 12:27 | PC.NURSE ---
Dr. Ferguson at BS for pt eval
--- NOTE | 2023-09-26 13:09 | ECG_ITS ---
APPROVED REPORT Exam: Resting ECG HR:63 bpm ECG Measurements Heart Rate 63 AXES ND 156 P 19 QRSd 97 QRS 18 QT 372 T 7 QTc 380 Conclusion SINUS RHYTHM WITH MARKED SINUS ARRHYTHMIA LOW QRS VOLTAGE IN PRECORDIAL LEADS [QRS DEFLECTION < 1.0 mV IN CHEST LEADS] BORDERLINE ECG UNCONFIRMED REPORT Electronically signed by : Israel Mcfarlane MD 09/26/2023 19:16:29
[2023-09-26 13:13] LABS: Basophils % 0.3 % (0.1-2.0); Eosinophils # 0.2 K/mm3 (0.0-0.4); Eosinophils % 1.9 % (0.1-12.0); Hematocrit 34.9 % (37.0-47.0); Hemoglobin 11.5 g/dL (12.2-16.2); Lymphocytes # 1.7 K/mm3 (0.7-4.5); Lymphocytes % 22.1 % (10-50); Mean Corpuscular HGB Conc 33.1 g/dL (31.8-35.4); Mean Corpuscular Hemoglobin 23.2 pg (27.0-31.2); Mean Corpuscular Volume 70.2 fl (81-99); Mean Platelet Volume 7.8 fl (7.4-10.4); Monocytes # 0.4 K/mm3 (0.1-1.0); Monocytes % 5.2 % (1.7-9.3); Neutrophils # 5.4 K/mm3 (1.8-7.8); Neutrophils % 70.5 % (37.0-80.0); Platelet Count 426 K/mm3 (142-424); Red Blood Count 4.97 M/mm3 (4.20-5.40); Red Cell Distribution Width 15.6 % (11.5-17.5); White Blood Count 7.6 K/mm3 (4.8-10.8)
[2023-09-26 13:28] LABS: Alanine Aminotransferase 16 U/L (12-78); Albumin Level 4.6 g/dl (3.5-5.0); Albumin/Globulin Ratio 1.4 (1.1-1.8); Alkaline Phosphatase 72 U/L (38-126); Anion Gap 9.7 mEq/L (5-15); Aspartate Amino Transferase 21 U/L (14-36); Bilirubin,Total 0.3 mg/dl (0.2-1.3); Blood Urea Nitrogen 7 mg/dl (7-17); Calcium 8.8 mg/dl (8.4-10.2); Carbon Dioxide 26 mmol/L (22.0-30.0); Chloride 103 mmol/L (98-107); Creatinine Clearance Estimated 178 mL/min (50-200); Estimated Glomerular Filt Rate 96 ml/min (>60); GFR (African American) 116 ML/MIN (>60); Globulin 3.4 g/dL (1.3-3.2); Glucose 93 mg/dl (74-100); Potassium 3.7 mmoL/L (3.5-5.1); Sodium 135 mmol/L (136-145)
--- NOTE | 2023-09-26 13:33 | PC.NURSE ---
Pt gone to RAD via wheelchair
[2023-09-26 13:47] LABS: Troponin I < 0.01 ng/ml (0.00-0.034)
[2023-09-26 13:48] LABS: HCG Qualitative, Serum Negative (Negative)
--- NOTE | 2023-09-26 14:26 | HMH.EDGENADL ---
Discharge Plan Disposition Patient Disposition: Home, Self-Care Condition: Good Prescriptions Prescriptions: New ketorolac 10 mg tablet 10 mg PO Q8H 5 Days Qty: 15 0RF cetirizine 10 mg capsule 10 mg PO DAILY Qty: 30 0RF benzonatate 100 mg capsule 100 mg PO TID PRN (Reason: cough) Qty: 14 0RF No Action methocarbamol 750 MG tablet 750 mg PO BID PRN (Reason: back pain) 4 Days Qty: 8 0RF doxycycline hyclate 100 MG capsule 100 mg PO BID 10 Days Qty: 20 0RF prednisone 20 MG tablet 20 mg PO DAILY Qty: 4 0RF naproxen 500 MG tablet 500 mg PO BID Qty: 30 0RF methylprednisolone 4 mg Tablets,Dose Pack 4 mg PO DIRECTED Qty: 21 0RF cefdinir 300 mg capsule 300 mg PO BID Qty: 20 0RF cetirizine 10 MG tablet 10 mg PO DAILY ranitidine HCl [Acid Control (ranitidine)] 150 MG tablet 150 mg PO DAILY amlodipine 5 MG tablet 5 mg PO DAILY Patient Comments: take 1 tablet by mouth once daily for high blood pressure fluticasone propionate 50 spray,suspension 1 spr inhalation DAILY pantoprazole [Protonix] 40 mg tablet,delayed release (DR/EC) 40 mg PO DAILY Qty: 30 0RF ibuprofen 800 mg tablet 800 mg PO TID PRN (Reason: pain) 7 Days Qty: 20 0RF cyclobenzaprine 5 mg tablet 5 mg PO TID PRN (Reason: muscle spasm) 5 Days Qty: 15 0RF Referrals Follow up/Referrals: Kristy Gentile APRN [Primary Care Provider] - See instructions Activity Restrictions/Add. Instructions Additional Instructions/Restrictions: Please follow-up with your primary care provider. Please return to the emergency department if you develop any new or worsening symptoms or become concerned for your health. Clinical Impressions Clinical Impression: Chest pain, Upper respiratory infection, viral Discharge ED Provider: Jcarlos Ferguson I General Adult HPI General Chief complaint: PAIN Stated complaint: rib pain, ear pain no accident Time Seen by Provider: 09/26/23 11:35 Mode of Arrival: Ambulatory Source of Information: Patient Limitations: No Limitations Description of Symptoms (Recalled from ER Triage Doc. by RN): c/o left rib pain, when she moves or walks the pain through her back around to the front of chest, started about 2 days ago History of Present Illness HPI narrative: Patient is a 33-year-old female, prior history of appendectomy, 3 prior C-sections, hypertension who is presenting to the emergency department with 2-day history of runny nose, right-sided chest pain. History was conducted with the patient at bedside. She reports that she has been symptomatic for the past 2 to 3 days. She has had a very mild runny nose as well as an intermittent dry cough. She has also had predominantly right-sided chest pain, aching, pressure. She states that it is worse when she is coughing. She has not had any nausea, vomiting, abdominal pain, shortness of breath or difficulty breathing. She denies any lightheadedness, dizziness but does report that she has general muscle aches, myalgias. Has not had any fevers that she is aware of at home. She is attempted to take ibuprofen for symptoms without improvement in symptoms. Denies history of unilateral leg swelling, denies history of prior clots. Related Data Home Medications Medication Instructions Recorded Confirmed cetirizine 10 mg tablet 10 mg PO DAILY ALLERGIES 12/17/17 12/23/19 ranitidine HCl 150 mg tablet (Acid 150 mg PO DAILY GERD 12/17/17 12/23/19 Control (ranitidine)) amlodipine 5 mg tablet 5 mg PO DAILY HTN 06/07/18 12/23/19 fluticasone propionate 50 1 spr inhalation DAILY ALLERGIES 06/07/18 12/23/19 mcg/actuation nasal spray,suspension Previous Rx's Medication Instructions Recorded doxycycline hyclate 100 mg capsule 100 mg PO BID 10 days #20 caps 10/06/20 methocarbamol 750 mg tablet 750 mg PO BID PRN back pain 4 days 10/06/20 #8 tabs naproxen 500 mg tablet 500 mg PO BID #30 tabs 01/06/22 prednison
[2023-09-26 14:36] VITALS: BP 110/78; PULSE 67; RESP 16; TEMP 36.9; O2SAT 100
== END 2023-09-26 14:37 | disposition home or self-care (01) ==
PROVIDERS: Emergency Provider Emergency Medicine; PCP Nurse Practitioner Family
DX: R07.81 Pleurodynia (principal); J06.9 Acute upper respiratory infection, unspecified; I10 Essential (primary) hypertension
CPT/HCPCS: 71101; 80053; 84484; 84703; 85025; 93005; 99285

== ENCOUNTER 2023-10-28 16:31 | Emergency (ER) | payer OTHER, SELFPAY ==
[2023-10-28 16:55] VITALS: BP 139/108; PULSE 95; RESP 20; TEMP 36.7; O2SAT 99; BMI 42.0
--- NOTE | 2023-10-28 17:01 | EXP.UTC ---
Discharge Plan Disposition Patient Disposition: Home, Self-Care Condition: Good Prescriptions Prescriptions: New promethazine-DM 6.25-15 mg/5 mL Syrup 5 ml PO Q6H PRN (Reason: Cough) Qty: 240 0RF benzonatate [benzonatate] 100 mg capsule 100 mg PO TIDP PRN (Reason: Cough) Qty: 30 0RF methylprednisolone 4 mg Tablets,Dose Pack 4 mg PO DIRECTED 6 Days Qty: 21 0RF Rx Instructions: Take 1 pack as directed for 6 days No Action methocarbamol 750 MG tablet 750 mg PO BID PRN (Reason: back pain) 4 Days Qty: 8 0RF doxycycline hyclate 100 MG capsule 100 mg PO BID 10 Days Qty: 20 0RF prednisone 20 MG tablet 20 mg PO DAILY Qty: 4 0RF naproxen 500 MG tablet 500 mg PO BID Qty: 30 0RF methylprednisolone 4 mg Tablets,Dose Pack 4 mg PO DIRECTED Qty: 21 0RF cefdinir 300 mg capsule 300 mg PO BID Qty: 20 0RF cetirizine 10 MG tablet 10 mg PO DAILY ranitidine HCl [Acid Control (ranitidine)] 150 MG tablet 150 mg PO DAILY amlodipine 5 MG tablet 5 mg PO DAILY Patient Comments: take 1 tablet by mouth once daily for high blood pressure fluticasone propionate 50 spray,suspension 1 spr inhalation DAILY pantoprazole [Protonix] 40 mg tablet,delayed release (DR/EC) 40 mg PO DAILY Qty: 30 0RF ibuprofen 800 mg tablet 800 mg PO TID PRN (Reason: pain) 7 Days Qty: 20 0RF cyclobenzaprine 5 mg tablet 5 mg PO TID PRN (Reason: muscle spasm) 5 Days Qty: 15 0RF ketorolac 10 mg tablet 10 mg PO Q8H 5 Days Qty: 15 0RF cetirizine 10 mg capsule 10 mg PO DAILY Qty: 30 0RF benzonatate 100 mg capsule 100 mg PO TID PRN (Reason: cough) Qty: 14 0RF Referrals Follow up/Referrals: Kristy Gentile APRN [Primary Care Provider] - See instructions Activity Restrictions/Add. Instructions Additional Instructions/Restrictions: Drink plenty of fluids. Take tylenol or ibuprofen for pain or fever. Take the medications as directed. Follow up with your regular doctor. GO TO THE ER FOR ANY WORSENING SYMPTOMS Clinical Impressions Clinical Impression: Acute bronchitis, Sinusitis Instructions Patient Instructions: DI for Acute Bronchitis Discharge ED Provider: Lev Sosa [facility] General Stated complaint: cough Time Seen by Provider: 10/28/23 16:58 History of Present Illness Provider Complaint: She states that for the past 2 days she has had sore throat, cough, sinus congestion and cough. Related Data Home Medications Medication Instructions Recorded Confirmed cetirizine 10 mg tablet 10 mg PO DAILY ALLERGIES 12/17/17 12/23/19 ranitidine HCl 150 mg tablet (Acid 150 mg PO DAILY GERD 12/17/17 12/23/19 Control (ranitidine)) amlodipine 5 mg tablet 5 mg PO DAILY HTN 06/07/18 12/23/19 fluticasone propionate 50 1 spr inhalation DAILY ALLERGIES 06/07/18 12/23/19 mcg/actuation nasal spray,suspension Previous Rx's Medication Instructions Recorded doxycycline hyclate 100 mg capsule 100 mg PO BID 10 days #20 caps 10/06/20 methocarbamol 750 mg tablet 750 mg PO BID PRN back pain 4 days 10/06/20 #8 tabs naproxen 500 mg tablet 500 mg PO BID #30 tabs 01/06/22 prednisone 20 mg tablet 20 mg PO DAILY #4 tabs 01/06/22 cefdinir 300 mg capsule 300 mg PO BID #20 caps 09/04/22 methylprednisolone 4 mg tablets in 4 mg PO DIRECTED #21 tabs 09/04/22 a dose pack pantoprazole 40 mg tablet,delayed 40 mg PO DAILY #30 tabs 10/02/22 release (Protonix) cyclobenzaprine 5 mg tablet 5 mg PO TID PRN muscle spasm 5 05/01/23 days #15 tabs ibuprofen 800 mg tablet 800 mg PO TID PRN pain 7 days #20 05/01/23 tabs benzonatate 100 mg capsule 100 mg PO TID PRN cough #14 caps 09/26/23 cetirizine 10 mg capsule 10 mg PO DAILY #30 caps 09/26/23 ketorolac 10 mg tablet 10 mg PO Q8H 5 days #15 tabs 09/26/23 benzonatate 100 mg capsule 100 mg PO TIDP PRN Cough #30 caps 10/28/23 methylprednisolone 4 mg tablets in 4 mg PO DIRECTED 6 days #21 tabs 10/28/23 a dose pack promethazine-DM 6.25 mg-15 mg/5 mL 5 ml PO Q6H PRN Cough #240 mL 10/28/23 oral syrup Allergies Allergy/AdvReac Type Severity Reaction Status Date / Time amoxicillin [AMOXICILLIN] Allergy Unknown Verified 09/04/22 08:27 Penicillins [PENICILLINS] Allergy Unknown Verified 09/04/22 08:27 [facility] Disclaimer: The information contained in this section may have been updated after the patient was seen, as this information can be updated by other users. Medical History (Updated 10/28/23 @ 17:33 by Lev Sosa APRN) Anxiety Asthma Hypertension Surgical History (Updated 10/28/23 @ 17:08 by Radha Acevedo RN) History of section Social History Smoking Status: Unknown if ever smoked alcohol intake: never current occupational status: other Travel in the last 8 weeks: None ROS Obtained: Yes All systems reviewed & no additional complaints except as documented Constitutional Constitutional: Reports chills and Reports fever(s) Eyes Eyes: Denies eye discharge ENT Ears, Nose, Mouth, and Throat: Reports as per HPI Cardiovascular Cardiovascular: Denies chest pain Respiratory Respiratory: Denies chest congestion and Reports cough Gastrointestinal Gastrointestingal: Reports nausea; Denies abdominal pain, constipation, cramping, diarrhea or vomiting Musculoskeletal Musculoskeletal: Denies arthralgias Integumentary/Breasts Skin/Breast: Denies rash Neurologic Neurologic: Denies paresthesias Physical Exam General General appearance: alert and in no apparent distress Eye Eye exam: Present normal appearance, PERRL and EOMI ENT ENT exam: Present mucous membranes moist and normal external ear exam Expanded ENT Exam External ear exam: Present normal external inspection TM/Canal exam: Bilateral TM: erythema and bulging Nose exam: Absent sinus tenderness Nasal speculum exam: Bilateral: normal Mouth exam: Present normal external inspection; Absent drooling Teeth exam: Present normal inspection Throat exam: Present tonsillar erythema and tonsillomegaly Neck Neck exam: Present normal inspection, full ROM and trachea midline; Absent tenderness, lymphadenopathy or thyromegaly Chest Chest inspection: Present normal inspection and symmetric chest wall rise; Absent tenderness or rash Respiratory Respiratory exam: Present normal lung sounds bilaterally; Absent respiratory distress, wheezes, stridor or accessory muscle use Cardiovascular Cardiovascular exam: Present regular rate, normal rhythm and normal heart sounds Abdominal Exam Abdominal exam: Present soft; Absent distention, tenderness, guarding, rebound or rigidity Extremities Exam Extremities exam: Present normal inspection, full ROM and normal capillary refill; Absent tenderness or calf tenderness Back Exam Back exam: Present normal inspection and full ROM; Absent tenderness Neurological Exam Neurological exam: Present alert and oriented X3 Psychiatric Psychiatric exam: Present normal affect and normal mood Skin Skin exam: Present warm, dry, intact and normal color Lymphatic Lymphatic Findings: no adenopathy Medical Decision Making Medical Records Medical records reviewed: No I reviewed the patient's medical records. [place] Inquiry Pt receiving controlled substance: No Lab Data Lab results reviewed: Yes I reviewed the patient's lab results.
[2023-10-28 17:30] VITALS: BP 139/108; PULSE 95; RESP 20; TEMP 36.7; O2SAT 99
== END 2023-10-28 17:34 | disposition home or self-care (01) ==
PROVIDERS: Emergency Provider Nurse Practitioner Family; PCP Nurse Practitioner Family
DX: J20.9 Acute bronchitis, unspecified (principal); R05.9 Cough, unspecified; R09.81 Nasal congestion; R07.0 Pain in throat; I10 Essential (primary) hypertension
CPT/HCPCS: 99212; 99214; G0463

== ENCOUNTER 2023-11-10 12:55 | Emergency (ER) | payer OTHER, SELFPAY ==
[2023-11-10 13:20] VITALS: BP 134/97; PULSE 130; RESP 18; TEMP 36.8; O2SAT 98; BMI 38.2
--- NOTE | 2023-11-10 13:52 | ED_ITS ---
Discharge Plan Disposition Patient Disposition: Home, Self-Care Condition: Good Prescriptions Prescriptions: New methocarbamol 500 mg tablet 500 mg PO TID PRN (Reason: muscle spasm) Qty: 15 0RF No Action methocarbamol 750 MG tablet 750 mg PO BID PRN (Reason: back pain) 4 Days Qty: 8 0RF doxycycline hyclate 100 MG capsule 100 mg PO BID 10 Days Qty: 20 0RF prednisone 20 MG tablet 20 mg PO DAILY Qty: 4 0RF naproxen 500 MG tablet 500 mg PO BID Qty: 30 0RF methylprednisolone 4 mg Tablets,Dose Pack 4 mg PO DIRECTED Qty: 21 0RF cefdinir 300 mg capsule 300 mg PO BID Qty: 20 0RF cetirizine 10 MG tablet 10 mg PO DAILY ranitidine HCl [Acid Control (ranitidine)] 150 MG tablet 150 mg PO DAILY amlodipine 5 MG tablet 5 mg PO DAILY Patient Comments: take 1 tablet by mouth once daily for high blood pressure fluticasone propionate 50 spray,suspension 1 spr inhalation DAILY pantoprazole [Protonix] 40 mg tablet,delayed release (DR/EC) 40 mg PO DAILY Qty: 30 0RF ibuprofen 800 mg tablet 800 mg PO TID PRN (Reason: pain) 7 Days Qty: 20 0RF cyclobenzaprine 5 mg tablet 5 mg PO TID PRN (Reason: muscle spasm) 5 Days Qty: 15 0RF ketorolac 10 mg tablet 10 mg PO Q8H 5 Days Qty: 15 0RF cetirizine 10 mg capsule 10 mg PO DAILY Qty: 30 0RF benzonatate 100 mg capsule 100 mg PO TID PRN (Reason: cough) Qty: 14 0RF promethazine-DM 6.25-15 mg/5 mL Syrup 5 ml PO Q6H PRN (Reason: Cough) Qty: 240 0RF benzonatate [benzonatate] 100 mg capsule 100 mg PO TIDP PRN (Reason: Cough) Qty: 30 0RF methylprednisolone 4 mg Tablets,Dose Pack 4 mg PO DIRECTED 6 Days Qty: 21 0RF Rx Instructions: Take 1 pack as directed for 6 days Referrals Follow up/Referrals: Israel Mcfarlane MD [Primary Care Provider] - See instructions Activity Restrictions/Add. Instructions Additional Instructions/Restrictions: *Ibuprofen katina 8 hours with meal as needed for pain/inflammation *Not additional anti-inflammatory like motrin, aleve, advil with the above amount of ibuprofen. You can still take Tylenol every 4 hours as needed if you need something else for pain *moist heat every 20 minutes 3-4 times a day to affected area *Muscle relaxer every 8 hours as needed for muscle spasms but remember, it WILL cause drowsiness You cannot take it and drive, operate machinery or care for small children. *Keep this area active, no movement leads to more stiffness, However take it easy and avoid heavy lifting pushing or pulling *Follow up with you family doctor if no improvement for further treatment Clinical Impressions Clinical Impression: Low back pain Qualifiers: Chronicity: unspecified Back pain laterality: right Sciatica presence: without sciatica Qualified Code(s): M54.50 - Low back pain, unspecified Instructions Patient Instructions: Low Back Pain, Methocarbamol Discharge ED Provider: Carmen Ibanez [facility] General Stated complaint: lower back pain Mode of Arrival: Ambulatory Source of Information: Patient Limitations: No Limitations Time Seen by Provider: 11/10/23 13:52 Description of Symptoms (Recalled from Triage Doc. by RN): PATIENT C/O LOWER JACQUELINE K PAIN X 2 MONTHS HEENT Symptoms (Recalled from RN notes): No Resp Symptoms (Recalled from RN notes): No Skin Symptoms (Recalled from RN notes): No MS Symptoms (Recalled from RN notes): Yes Functional Status (Recalled from RN notes): WNL History of Present Illness Provider Complaint: Patient states that she has been having pain in her lower back on the right side for about 2 months States that she has seen her PCP several times for it and they prescribed her Ibuprofen but she has taken it so much it doesnt help much so today she felt like she was having some spasms so she came in Denies new injury Denies loss of control of bowel or bladder Related Data Home Medications Medication Instructions Recorded Confirmed cetirizine 10 mg tablet 10 mg PO DAILY ALLERGIES 12/17/17 12/23/19 ranitidine HCl 150 mg tablet (Acid 150 mg PO DAILY GERD 12/17/17 12/23/19 Control (ranitidine)) amlodipine 5 mg tablet 5 mg PO DAILY HTN 06/07/18 12/23/19 fluticasone propionate 50 1 spr inhalation DAILY ALLERGIES 06/07/18 12/23/19 mcg/actuation nasal spray,suspension Previous Rx's Medication Instructions Recorded doxycycline hyclate 100 mg capsule 100 mg PO BID 10 days #20 caps 10/06/20 methocarbamol 750 mg tablet 750 mg PO BID PRN back pain 4 days 10/06/20 #8 tabs naproxen 500 mg tablet 500 mg PO BID #30 tabs 01/06/22 prednisone 20 mg tablet 20 mg PO DAILY #4 tabs 01/06/22 cefdinir 300 mg capsule 300 mg PO BID #20 caps 09/04/22 methylprednisolone 4 mg tablets in 4 mg PO DIRECTED #21 tabs 09/04/22 a dose pack pantoprazole 40 mg tablet,delayed 40 mg PO DAILY #30 tabs 10/02/22 release (Protonix) cyclobenzaprine 5 mg tablet 5 mg PO TID PRN muscle spasm 5 05/01/23 days #15 tabs ibuprofen 800 mg tablet 800 mg PO TID PRN pain 7 days #20 05/01/23 tabs benzonatate 100 mg capsule 100 mg PO TID PRN cough #14 caps 09/26/23 cetirizine 10 mg capsule 10 mg PO DAILY #30 caps 09/26/23 ketorolac 10 mg tablet 10 mg PO Q8H 5 days #15 tabs 09/26/23 benzonatate 100 mg capsule 100 mg PO TIDP PRN Cough #30 caps 10/28/23 methylprednisolone 4 mg tablets in 4 mg PO DIRECTED 6 days #21 tabs 10/28/23 a dose pack promethazine-DM 6.25 mg-15 mg/5 mL 5 ml PO Q6H PRN Cough #240 mL 10/28/23 oral syrup methocarbamol 500 mg tablet 500 mg PO TID PRN muscle spasm #15 11/10/23 tabs Allergies Allergy/AdvReac Type Severity Reaction Status Date / Time amoxicillin [AMOXICILLIN] Allergy Unknown Verified 09/04/22 08:27 Penicillins [PENICILLINS] Allergy Unknown Verified 09/04/22 08:27 Worker's Comp Is this a Worker's Comp case?: No [facility] Disclaimer: The information contained in this section may have been updated after the patient was seen, as this information can be updated by other users. Medical History (Updated 11/10/23 @ 14:01 by Carmen Ibanez APRN) Anxiety Asthma Hypertension Surgical History (Updated 10/28/23 @ 17:08 by Radha Acevedo RN) History of section Social History Smoking Status: Unknown if ever smoked alcohol intake: never current occupational status: other Travel in the last 8 weeks: None ROS Obtained: Yes All systems reviewed & no additional complaints except as documented and Yes Systems reviewed as appropriate & no additional complaints except as documented Constitutional Constitutional: Reports system reviewed and no additional complaints, except as documented and Reports as per HPI ENT Ears, Nose, Mouth, and Throat: Reports system reviewed and no additional complaints, except as documented and Reports as per HPI Cardiovascular Cardiovascular: Reports system reviewed and no additional complaints, except as documented and Reports as per HPI Respiratory Respiratory: Reports system reviewed and no additional complaints, except as documented and Reports as per HPI Gastrointestinal Gastrointestingal: Reports system reviewed and no additional complaints, except as documented and as per HPI Genitourinary Female Genitourinary: Reports system reviewed and no additional complaints, except as documented and Reports as per HPI Musculoskeletal Musculoskeletal: Reports system reviewed and no additional complaints, except as documented, Reports as per HPI and Reports back pain (right side low back pain with spasms) Physical Exam General General appearance: alert and in no apparent distress ENT ENT exam: Present mucous membranes moist Respiratory Respiratory exam: Present normal lung sounds bilaterally; Absent respiratory distress or wheezes Cardiovascular Cardiovascular exam: Present regular rate, normal rhythm and normal heart sounds Abdominal Exam Abdominal exam: Present soft and normal bowel sounds; Absent distention or tenderness Back Exam Back 1 view image: 1. reports achy like spasm pain on and off for 2 mths Denies new injury Denies loss of control of bowel or bladder and denies radiation of pain worse with movement Neurological Exam Neurological exam: Present alert, oriented X3 and normal gait Medical Decision Making [place] Inquiry Pt receiving controlled substance: No [place] was queried for this patient: No Vital Signs: 11/10/23 13:20 Temperature 98.3 F Temperature Source Oral Pulse Rate [Left Brachial] 130 H Respiratory Rate 18 Blood Pressure [Left Arm] 134/97 H Blood Pressure Mean [Left Arm] 109 Blood Pressure Source [Left Arm] Automatic Cuff Blood Pressure Position [Left Arm] Sitting 02 Sat by Pulse Oximetry 98 Oxygen Delivery Method Room Air Medical Decision Narrative: Discussed xray patient declined agreed to trial of muscle relaxers and will follow up with PCP if no improvement
[2023-11-10 13:55] LABS: Apearance,Urine Clear (Clear); Bilirubin,Urine Negative (Negative); Blood, Urine Negative (Negative); Color,Urine Yellow (Yellow); Glucose,Urine (UA) Negative (Negative); Ketones,Urine Negative (Negative); Protein,Urine Negative (Negative); UTC Leukocyte Esterase,Urine Negative (Negative); UTC Nitrate,Urine Negative (Negative); Urobilinogen,Urine 0.2 EU/dl (0.2)
[2023-11-10 14:05] VITALS: BP 134/97; PULSE 130; RESP 18; TEMP 36.8; O2SAT 98
== END 2023-11-10 14:08 | disposition home or self-care (01) ==
PROVIDERS: Emergency Provider Nurse Practitioner; PCP Internal Medicine Adolescent Medicine
DX: M54.50 Low back pain, unspecified (principal); J45.909 Unspecified asthma, uncomplicated; I10 Essential (primary) hypertension
CPT/HCPCS: 81003; 99212; 99214; G0463

== ENCOUNTER 2023-12-01 13:02 | Outpatient (CLI) | payer OTHER, SELFPAY ==
[2023-12-01 13:54] LABS: Basophils % 0.2 % (0.1-2.0); Eosinophils # 0.1 K/mm3 (0.0-0.4); Eosinophils % 1.1 % (0.1-12.0); Hematocrit 32.8 % (37.0-47.0); Hemoglobin 10.9 g/dL (12.2-16.2); Lymphocytes # 1.9 K/mm3 (0.7-4.5); Lymphocytes % 23.4 % (10-50); Mean Corpuscular HGB Conc 33.1 g/dL (31.8-35.4); Mean Corpuscular Hemoglobin 24.2 pg (27.0-31.2); Mean Corpuscular Volume 73.1 fl (81-99); Mean Platelet Volume 7.6 fl (7.4-10.4); Monocytes # 0.4 K/mm3 (0.1-1.0); Monocytes % 4.4 % (1.7-9.3); Neutrophils # 5.7 K/mm3 (1.8-7.8); Neutrophils % 70.9 % (37.0-80.0); Platelet Count 553 K/mm3 (142-424); Red Blood Count 4.49 M/mm3 (4.20-5.40); Red Cell Distribution Width 15.7 % (11.5-17.5)
[2023-12-01 14:14] LABS: Alanine Aminotransferase 18 U/L (12-78); Albumin Level 4.3 g/dl (3.5-5.0); Albumin/Globulin Ratio 1.5 (1.1-1.8); Alkaline Phosphatase 77 U/L (38-126); Anion Gap 11.1 mEq/L (5-15); Aspartate Amino Transferase 21 U/L (14-36); Bilirubin,Total 0.3 mg/dl (0.2-1.3); Blood Urea Nitrogen 14 mg/dl (7-17); Calcium 9.4 mg/dl (8.4-10.2); Carbon Dioxide 25 mmol/L (22.0-30.0); Chloride 106 mmol/L (98-107); Chol/HDL Ratio 6.3 (1-3.5); Cholesterol 220 mg/dl (140-200); Estimated Glomerular Filt Rate 96 ml/min (>60); GFR (African American) 116 ML/MIN (>60); Globulin 2.8 g/dL (1.3-3.2); Glucose 81 mg/dl (74-100); HDL Cholesterol 35 mg/dl (40-60); Potassium 4.1 mmoL/L (3.5-5.1); Sodium 138 mmol/L (136-145); Total Protein,Serum 7.1 g/dl (6.3-8.2); Triglycerides 176 mg/dl (30-150); VLDL Cholesterol 35 mg/dL (0-40)
[2023-12-01 14:31] LABS: 25-OH Vitamin D, Total 15.6 ng/mL (30-100)
[2023-12-01 14:46] LABS: Thyroid Stimulating Hormone 2.14 uIU/mL (0.465-4.68)
== END 2023-12-01 23:59 ==
LOC: LAB.DROPOF 13:03
PROVIDERS: PCP Family Medicine; Visit Provider Family Medicine
DX: G43.909 Migraine, unspecified, not intractable, without status migrainosus (principal); R13.10 Dysphagia, unspecified; E55.9 Vitamin D deficiency, unspecified; Z68.39 Body mass index [BMI] 39.0-39.9, adult
CPT/HCPCS: 80053; 80061; 82306; 84443; 85025

== ENCOUNTER 2023-12-06 11:03 | Outpatient (CLI) | payer OTHER, SELFPAY ==
[2023-12-06 11:10] LABS: Iron 32 ug/dL (37-170)
[2023-12-06 11:19] LABS: Total Iron Binding Capacity 470 ug/dL (265-497)
== END 2023-12-06 23:59 ==
LOC: LAB.DROPOF 12-08 11:04
PROVIDERS: PCP Family Medicine; Visit Provider Family Medicine
DX: D50.9 Iron deficiency anemia, unspecified (principal)
CPT/HCPCS: 83540; 83550

== ENCOUNTER 2023-12-07 20:06 | Emergency (ER) | payer OTHER, SELFPAY ==
[2023-12-07 20:08] VITALS: BP 127/101; PULSE 90; RESP 18; TEMP 36.9; O2SAT 99; BMI 43.4
[2023-12-07 20:36] LABS: Microscopic, Urine URINE MICROSCOPIC (MICROSCOPIC)
[2023-12-07 20:50] LABS: Basophils % 0.1 % (0.1-2.0); Eosinophils # 0.1 K/mm3 (0.0-0.4); Eosinophils % 0.7 % (0.1-12.0); Hematocrit 34.6 % (37.0-47.0); Hemoglobin 11.1 g/dL (12.2-16.2); Lymphocytes # 1.6 K/mm3 (0.7-4.5); Lymphocytes % 14.1 % (10-50); Mean Corpuscular Hemoglobin 23.9 pg (27.0-31.2); Mean Corpuscular Volume 74.6 fl (81-99); Mean Platelet Volume 7.6 fl (7.4-10.4); Monocytes # 0.5 K/mm3 (0.1-1.0); Monocytes % 4.2 % (1.7-9.3); Neutrophils # 9.3 K/mm3 (1.8-7.8); Platelet Count 578 K/mm3 (142-424); Red Blood Count 4.63 M/mm3 (4.20-5.40); Red Cell Distribution Width 15.7 % (11.5-17.5); White Blood Count 11.5 K/mm3 (4.8-10.8)
[2023-12-07 20:52] LABS: Appearance,Urine SL CLOUDY (Clear); Bilirubin,Urine Negative (Negative); Blood, Urine 2+ (Negative); Color,Urine YELLOW (Yellow); Glucose,Urine (UA) Negative (Negative); Ketones,Urine Negative (Negative); Leukocyte Esterase,Urine 1+ (Negative); Nitrate,Urine POSITIVE (Negative); PH,Urine 6.5 (5.0-8.5); Protein,Urine 3+ (Negative); Specific Gravity, Urine 1.025 (1.005-1.030); Urobilinogen,Urine 0.2 EU/dl (0.2)
[2023-12-07 20:54] LABS: Urine Pregnancy, HCG Qual. Negative (Negative)
[2023-12-07 20:59] LABS: Alanine Aminotransferase 19 U/L (12-78); Albumin Level 4.5 g/dl (3.5-5.0); Albumin/Globulin Ratio 1.4 (1.1-1.8); Alkaline Phosphatase 80 U/L (38-126); Anion Gap 11.4 mEq/L (5-15); Aspartate Amino Transferase 20 U/L (14-36); Bilirubin,Total 0.3 mg/dl (0.2-1.3); Blood Urea Nitrogen 11 mg/dl (7-17); Calcium 10.3 mg/dl (8.4-10.2); Carbon Dioxide 31 mmol/L (22.0-30.0); Chloride 99 mmol/L (98-107); Creatinine Clearance Estimated 85 mL/min (50-200); Estimated Glomerular Filt Rate 96 ml/min (>60); GFR (African American) 116 ML/MIN (>60); Globulin 3.3 g/dL (1.3-3.2); Glucose 101 mg/dl (74-100); Potassium 3.4 mmoL/L (3.5-5.1); Sodium 138 mmol/L (136-145); Total Protein,Serum 7.8 g/dl (6.3-8.2)
[2023-12-07 21:04] LABS: Bacteria,Urine 1+ /lpf; Squamous Epithelial Cell,Urine Occasional #/hpf (0-5); WBC,Urine TNTC #/hpf (0-3)
[2023-12-07 21:08] LABS: Lipase 89 U/L (23-300)
--- NOTE | 2023-12-07 21:08 | CT_ITS ---
PROCEDURE INFORMATION: Exam: CT Abdomen And Pelvis Without Contrast Exam date and time: 12/07/2023 9:22 PM Age: 33 years old Clinical indication: Abdominal pain; Additional info: Renal stone, left flank pain TECHNIQUE: Imaging protocol: Computed tomography of the abdomen and pelvis without contrast. Radiation optimization: All CT scans at this facility use at least one of these dose optimization techniques: automated exposure control; mA and/or kV adjustment per patient size (includes targeted exams where dose is matched to clinical indication); or iterative reconstruction. COMPARISON: [facility] CT angio chest 09/27/2018 7:46 PM FINDINGS: Lungs: Right lower lobe calcified granuloma unchanged from prior exam. Liver: Normal. No mass. Gallbladder and bile ducts: Normal. No calcified stones. No ductal dilation. Pancreas: Normal. No ductal dilation. Spleen: Multiple benign-appearing calcific densities of the spleen. Adrenal glands: Normal. No mass. Kidneys and ureters: Moderate dilatation and inflammatory changes of the ureters bilaterally without associated calcific densities may represent noncalcified stones versus infectious or inflammatory process of the ureters. No calcified nephroliths or ureteroliths identified. Stomach and bowel: Unremarkable. No obstruction. No mucosal thickening. Appendix: No evidence of appendicitis. Intraperitoneal space: Unremarkable. No free air. No significant fluid collection. Vasculature: Unremarkable. No abdominal aortic aneurysm. Lymph nodes: Unremarkable. No enlarged lymph nodes. Urinary bladder: Unremarkable as visualized. Reproductive: Bilateral tubal ligation clips in place. Bones/joints: Mild loss of intervertebral disc space with degenerative changes at L5-S1. Soft tissues: Normal. IMPRESSION: 1. Moderate dilatation and inflammatory changes of the ureters bilaterally without associated calcific densities may represent noncalcified stones versus infectious or inflammatory process of the ureters. 2. No calcified nephroliths or ureteroliths identified.
--- NOTE | 2023-12-07 21:22 | PC.NURSE ---
patient gone to CT at this time.
--- NOTE | 2023-12-07 21:26 | PC.NURSE ---
patient back in room at this time.
[2023-12-07] MEDS: TAMSULOSIN 0.4MG CAPSULE 0.400000000000000022 MG PO (22:35)
[2023-12-07] MEDS: SULFA/TRIMETHOPRIM 1 TABLET 1 EACH PO (22:35)
[2023-12-07 23:06] VITALS: BP 123/79; PULSE 75; RESP 19; TEMP 36.8; O2SAT 98
--- NOTE | 2023-12-07 23:47 | HMH.EDGENADL ---
Discharge Plan Disposition Patient Disposition: Home, Self-Care Condition: Good Prescriptions Prescriptions: New tamsulosin [Flomax] 0.4 mg capsule 0.4 mg PO DAILY Qty: 10 0RF sulfamethoxazole-trimethoprim [Bactrim DS] 800-160 mg tablet 1 tab PO BID Qty: 20 0RF No Action omeprazole 40 mg capsule,delayed release(DR/EC) 40 mg PO diclofenac sodium 75 mg tablet,delayed release (DR/EC) PO buspirone 5 mg tablet 5 mg PO BID ergocalciferol (vitamin D2) [Vitamin D2] 1,250 mcg (50,000 unit) capsule 1,250 mcg PO WEEKLY Qty: 5 2RF atorvastatin [Lipitor] 10 mg tablet 10 mg PO HS Qty: 30 2RF cetirizine 10 mg capsule 10 mg PO DAILY Qty: 30 0RF Referrals Follow up/Referrals: Yesika Trejo APRN [Primary Care Provider] - See instructions Activity Restrictions/Add. Instructions Additional Instructions/Restrictions: At this point the most likely cause of your abdominal pain is that you may have had a kidney stone that you have now passed. Your CT scan did not show a stone but you had some signs of inflammation in your urine so we are treating you for a possible UTI. Follow up with urology as soon as possible for recheck or return to the ED if worsening. Clinical Impressions Clinical Impression: Abdominal pain Instructions Patient Instructions: DI for Acute Abdominal Pain, Tamsulosin Discharge ED Provider: Dania Ernandez General Adult HPI General Chief complaint: Abdominal Pain Stated complaint: abd pain Time Seen by Provider: 12/07/23 20:56 Mode of Arrival: Ambulatory Source of Information: Patient Limitations: No Limitations Description of Symptoms (Recalled from ER Triage Doc. by RN): abdominal pain comes/go notice approximately 2 days ago today pain has not gone away. Has started new BP medication Lisinopril with Fluid pill thinks it is related but has not taken it x 2 days. Having frequency in urination with feeling like bladder does not empty; denies pain and burning with urination. History of Present Illness HPI narrative: Patient is a 33-year-old female, previously healthy with history of appendectomy, sections, obesity, presenting with left flank pain that radiates from left upper flank to left groin. Patient states that this evening at home she had severe pain that caused her to be unable to hold still and was accompanied by nausea. She also feels she has been urinating more frequently than usual but no pain with urination, no hematuria. At time of evaluation in the emergency department she says her pain has become much less severe. Related Data Home Medications Medication Instructions Recorded Confirmed buspirone 5 mg tablet 5 mg PO BID 12/01/23 12/01/23 diclofenac sodium 75 mg mg PO 12/01/23 12/01/23 tablet,delayed release omeprazole 40 mg capsule,delayed 40 mg PO 12/01/23 12/01/23 release Previous Rx's Medication Instructions Recorded cetirizine 10 mg capsule 10 mg PO DAILY #30 caps 09/26/23 atorvastatin 10 mg tablet (Lipitor) 10 mg PO HS #30 tabs 12/06/23 ergocalciferol (vitamin D2) 1,250 1,250 mcg PO WEEKLY #5 caps 12/06/23 mcg (50,000 unit) capsule (Vitamin D2) sulfamethoxazole 800 1 tab PO BID #20 tabs 12/07/23 mg-trimethoprim 160 mg tablet (Bactrim DS) tamsulosin 0.4 mg capsule (Flomax) 0.4 mg PO DAILY #10 caps 12/07/23 Allergies Allergy/AdvReac Type Severity Reaction Status Date / Time amoxicillin [AMOXICILLIN] Allergy Unknown Verified 12/01/23 10:41 Penicillins [PENICILLINS] Allergy Unknown Verified 12/01/23 10:[address] [facility] Disclaimer: The information contained in this section may have been updated after the patient was seen, as this information can be updated by other users. Medical History Acute bronchitis Acute bronchitis Acute wrist pain Anxiety Asthma Choking episode Conjunctivitis Depression Hypertension Mucus plugging of bronchi Otitis media Sinusitis Strep throat Upper respiratory infection, viral Viral syndrome Viral upper respiratory infection Surgical History History of section Social History Smoking Status: Never smoker alcohol intake: never current occupational status: other Travel in the last 8 weeks: None ROS Obtained: Yes All systems reviewed & no additional complaints except as documented Physical Exam General General appearance: alert and in no apparent distress Head Head exam: atraumatic, normocephalic and normal inspection Eye Eye exam: Present normal appearance, PERRL and EOMI ENT ENT exam: Present normal exam, normal oropharynx, mucous membranes moist, TM's normal bilaterally and normal external ear exam Neck Neck exam: Present normal inspection, full ROM and trachea midline; Absent meningismus or lymphadenopathy Chest Chest inspection: Present normal inspection and symmetric chest wall rise; Absent tenderness Respiratory Respiratory exam: Present normal lung sounds bilaterally; Absent respiratory distress Cardiovascular Cardiovascular exam: Present regular rate and normal rhythm; Absent JVD Abdominal Exam Abdominal exam: Present soft, tenderness (Left CVA tenderness, otherwise no tenderness.) and normal bowel sounds; Absent distention or guarding Extremities Exam Extremities exam: Present normal inspection, full ROM and normal capillary refill; Absent calf tenderness Back Exam Back exam: Present normal inspection; Absent tenderness Neurological Exam Neurological exam: Present alert and oriented X3 Psychiatric Psychiatric exam: Present normal affect and normal mood Skin Skin exam: Present warm, dry, intact and normal color Lymphatic Lymphatic Findings: no adenopathy Medical Decision Making Jordan Inquiry Pt receiving controlled substance: No Jordan was queried for this patient: No Vital Signs: 12/07/23 20:08 12/07/23 23:06 Temperature 98.4 F 98.2 F Temperature Source Oral Oral Pulse Rate 75 Pulse Rate [Left] 90 Respiratory Rate 18 19 Blood Pressure 123/79 Blood Pressure [Left Arm] 127/101 H Blood Pressure Mean [Left Arm] 109 Blood Pressure Source Automatic Cuff Blood Pressure Source [Left Arm] Automatic Cuff Blood Pressure Position Sitting Blood Pressure Position [Left Arm] Sitting 02 Sat by Pulse Oximetry 99 Oxygen Delivery Method Room Air Room Air Lab Data Lab Results 12/07/23 20:13: Urine Color Yellow, Urine Appearance Sl cloudy, Urine pH 6.5, Ur Specific [place] 1.025, Urine Protein 3+, Urine Glucose (UA) Negative, Urine Ketones Negative, Urine Blood 2+, Urine Nitrate Positive, Urine Bilirubin Negative, Urine Urobilinogen 0.2, Ur Leukocyte Esterase 1+ A, Urine RBC 5-10, Urine WBC Tntc, Ur Squamous Epith Cells Occasional, Urine Bacteria 1+, Urine HCG, Qual Negative 12/07/23 20:40: WBC 11.5 H, RBC 4.63, Hgb 11.1 L, Hct 34.6 L, MCV 74.6 L, MCH 23.9 L, MCHC 32.0, RDW 15.7, Plt Count 578 H, MPV 7.6, Neut % (Auto) 81.0 H, Lymph % (Auto) 14.1, [place] % (Auto) 4.2, Eos % (Auto) 0.7, Baso % (Auto) 0.1, Neut # (Auto) 9.3 H, Lymph # (Auto) 1.6, [place] # (Auto) 0.5, Eos # (Auto) 0.1, Baso # (Auto) 0.0, Sodium 138, Potassium 3.4 L, Chloride 99, Carbon Dioxide 31 H, Anion Gap 11.4, BUN 11, Creatinine 0.70, Estimated Creat Clear 85, Estimated GFR 96, Est GFR ( Amer) 116, Glucose 101 H, Calcium 10.3 H, Total Bilirubin 0.3, AST 20, ALT 19, Alkaline Phosphatase 80, Total Protein 7.8, Albumin 4.5, Globulin 3.3 H, Albumin/Globulin Ratio 1.4, Lipase 89 12/07/23 20:40 12/07/23 20:40 Orders (Tests/Meds): ED MEDICATIONS Discontinued Medications Generic Name Dose Route Start Last Admin Trade Name Freq PRN Reason Stop Dose Admin Tamsulosin HCl 0.4 mg 12/08/23 21:00 12/07/23 22:35 Tamsulosin 0.4mg Capsule PO 01/07/24 20:59 0.4 mg HS [id number] Administration Trimethoprim/Sulfamethoxazole 1 each 12/07/23 22:28 12/07/23 22:35 Sulfa/Trimethoprim 1 Tablet PO 12/07/23 22:29 1 each ONCE ONE Administration ORDERS Category Date Time Status CT abdomen pelvis wo con Stat Cat Scan 12/07/23 21:08 Completed Complete Blood Count Auto Diff Stat Lab 12/07/23 20:40 Completed Comprehensive Metabolic Panel Stat Lab 12/07/23 20:40 Completed Lipase Stat Lab 12/07/23 20:40 Completed Urinalysis and Microscopic Stat Lab 12/07/23 20:13 Completed Urine , HCG Qual. Stat Lab 12/07/23 20:13 Completed Urine Culture Stat Micro 12/07/23 20:13 Received Medical Decision Narrative: Considered multiple causes of patient's left abdominal pain that has now resolved, including nephrolithiasis, pyelonephritis, less likely ovarian torsion, diverticulitis, among others. For this reason obtained laboratory evaluation which independently reviewed and interpreted and showed leukocyte esterase in the urine and 1+ bacteria and no AGUSTÍN. CT without contrast I independently reviewed and interpreted showed dilation of the bilateral ureters but no stone. Consider multiple causes for these CT findings but it is possible and most consistent with her symptoms of pain having resolved that she may have passed a stone prior to CT being performed. For this reason provided referral to urology and though it is unlikely patient has an infected (non-radiopaque) stone given her CT and urinalysis, there is a remote possibility and in case of difficulty with follow-up, provided antibiotics and Flomax. Provided strict return precautions with patient and explained to her that if she does indeed have an infected stone and this is an emergency that would require her to return to the emergency department however she has no signs of sepsis at this time and minimal signs of inflammation on her urinalysis, no stone seen on CT so more likely she will be appropriate to follow-up with urology or primary care as needed. Critical Care Critical Care Time Critical Care Time: No
[2023-12-10 08:38] LABS: Neisseria gonorrhoeae, NAA Negative (Negative)
--- NOTE | 2023-12-13 23:52 | PC.NURSE ---
notified Dr Madrigal of urine culture. pt was given Bactrim DS BID for 10 days. no new orders.
== END 2023-12-07 23:07 | disposition home or self-care (01) ==
PROVIDERS: Emergency Provider Emergency Medicine; PCP Family Medicine
DX: R10.9 Unspecified abdominal pain (principal); R10.2 Pelvic and perineal pain; R35.0 Frequency of micturition; R11.0 Nausea; J45.909 Unspecified asthma, uncomplicated; I10 Essential (primary) hypertension
CPT/HCPCS: 74176; 80053; 81001; 81025; 83690; 85025; 87086; 87491; 87591; 99285

== ENCOUNTER 2024-03-05 20:21 | Emergency (ER) | payer OTHER, SELFPAY ==
[2024-03-05 20:22] VITALS: BP 115/78; PULSE 107; RESP 18; TEMP 37; O2SAT 98; BMI 38.4
--- NOTE | 2024-03-05 20:33 | ED_ITS ---
<Statement entered by Fermin Peace MD - 03/05/24 21:31> I was consulted by the PAL, and we discussed the complexity of the problems being addressed. I approved the treatment and management plan for this patient's care in the emergency department, thus performing a substantive portion of the medical decision making. Fermin Peace MD Discharge Plan Disposition Patient Disposition: Home, Self-Care Condition: Good Prescriptions Prescriptions: New ondansetron 4 mg tablet,disintegrating 4 mg PO Q6H PRN (Reason: nausea and vomiting) Qty: 10 0RF No Action buspirone 5 mg tablet 5 mg PO BID atorvastatin [Lipitor] 10 mg tablet 10 mg PO HS Qty: 30 2RF cetirizine 10 mg capsule 10 mg PO DAILY Qty: 30 6RF diclofenac sodium 75 mg tablet,delayed release (DR/EC) 75 mg PO BID Qty: 60 6RF ferrous sulfate [iron] 325 mg (65 mg iron) tablet 325 mg PO DAILY Qty: 30 5RF lisinopril-hydrochlorothiazide 10-12.5 mg tablet 1 tab PO DAILY Qty: 30 6RF omeprazole 40 mg capsule,delayed release(DR/EC) 40 mg PO ONCE Qty: 30 4RF ergocalciferol (vitamin D2) [Vitamin D2] 1,250 mcg (50,000 unit) capsule 1,250 mcg PO WEEKLY Qty: 12 2RF Nurtec ODT 75 mg tablet,disintegrating 75 mg PO Q OTHER DAY PRN (Reason: migraine headache) Qty: 14 2RF Referrals Follow up/Referrals: Yesika Trejo APRN [Primary Care Provider] - See instructions Activity Restrictions/Add. Instructions Additional Instructions/Restrictions: Reintroduce food with bland diet such as bananas rice applesauce toast. Follow- up with PCP for any worsening symptoms or return to the ER as needed. Clinical Impressions Clinical Impression: Nausea vomiting and diarrhea Stand Alone Forms Stand Alone Forms: Work/School Release Discharge ED Provider: Fermin Peace General Adult HPI <TERRELL Fried - Last Filed: 03/05/24 21:27> General Chief complaint: Nausea/Vomiting/Diarrhea Stated complaint: vomiting, weak Time Seen by Provider: 03/05/24 20:25 Mode of Arrival: Ambulatory Source of Information: Patient Limitations: No Limitations Description of Symptoms (Recalled from ER Triage Doc. by RN): 34 F presents with c/o possible food poisioning after eating a fast foot burger around 1300 today. Patient reports weakness, tranverse upper abdominal pain, nausea, and diarrhea. NAD during triage. Patient denies sick contacts to her knowledge. History of Present Illness HPI narrative: Patient presents for nausea vomiting diarrhea abdominal pain since eating at a fast food restaurant this afternoon. Patient states that her nausea vomiting diarrhea began almost immediately after. She reports additional symptoms of weakness and upper abdominal pain but denies chest pain shortness of breath fever chills hemoptysis hematochezia melena. Related Data Home Medications Medication Instructions Recorded Confirmed buspirone 5 mg tablet 5 mg PO BID 12/01/23 12/26/23 Previous Rx's Medication Instructions Recorded atorvastatin 10 mg tablet (Lipitor) 10 mg PO HS #30 tabs 12/26/23 cetirizine 10 mg capsule 10 mg PO DAILY #30 caps 12/26/23 diclofenac sodium 75 mg 75 mg PO BID #60 tabs 12/26/23 tablet,delayed release ferrous sulfate 325 mg (65 mg 325 mg PO DAILY #30 tabs 12/26/23 iron) tablet (iron) lisinopril 10 1 tab PO DAILY #30 tabs 12/26/23 mg-hydrochlorothiazide 12.5 mg tablet omeprazole 40 mg capsule,delayed 40 mg PO ONCE #30 caps 12/26/23 release ergocalciferol (vitamin D2) 1,250 1,250 mcg PO WEEKLY #12 caps 02/08/24 mcg (50,000 unit) capsule (Vitamin D2) rimegepant 75 mg disintegrating 75 mg PO Q OTHER DAY PRN migraine 02/08/24 tablet (Nurtec ODT) headache #14 tabs ondansetron 4 mg disintegrating 4 mg PO Q6H PRN nausea and 03/05/24 tablet vomiting #10 tabs Allergies Allergy/AdvReac Type Severity Reaction Status Date / Time amoxicillin [AMOXICILLIN] Allergy Unknown Verified 12/26/23 10:09 Penicillins [PENICILLINS] Allergy Unknown Verified 12/26/23 10:09 [facility] <TERRELL Fried - Last Filed: 03/05/24 21:27> [facility] Disclaimer: The information contained in this section may have been updated after the patient was seen, as this information can be updated by other users. Medical History (Updated 03/05/24 @ 21:26 by TERRELL Fried) Abdominal pain Low back strain Pneumonia Depression Sinusitis Acute bronchitis Anxiety Asthma Hypertension Upper respiratory infection, viral Acute wrist pain Choking episode Viral syndrome Otitis media Viral upper respiratory infection Conjunctivitis Mucus plugging of bronchi Acute bronchitis Strep throat Surgical History History of section Social History Smoking Status: Never smoker alcohol intake: never current occupational status: other Travel in the last 8 weeks: None <TERRELL Fried - Last Filed: 03/05/24 21:27> ROS Obtained: Yes Systems reviewed as appropriate & no additional complaints except as documented Physical Exam <TERRELL Fried - Last Filed: 03/05/24 21:27> General General appearance: alert and in no apparent distress Respiratory Respiratory exam: Present normal lung sounds bilaterally Cardiovascular Cardiovascular exam: Present normal rhythm, tachycardia and normal heart sounds Abdominal Exam Abdominal exam: Present soft (Obese), tenderness (Very mild diffuse abdominal pain more focal in the epigastrium), rigidity and normal bowel sounds; Absent guarding or rebound Neurological Exam Neurological exam: Present alert and oriented X3 Medical Decision Making <TERRELL Fried - Last Filed: 03/05/24 21:27> Medical Records Medical records reviewed: Yes I reviewed the patient's medical records. Jordan Inquiry Pt receiving controlled substance: No Vital Signs: 03/05/24 20:22 03/05/24 21:29 Temperature 98.6 F 98.2 F Temperature Source Oral Oral Pulse Rate 83 Pulse Rate [Left] 107 H Respiratory Rate 18 18 Blood Pressure 114/73 Blood Pressure [Right Arm] 115/78 Blood Pressure Mean [Right Arm] 90 Blood Pressure Source [Right Arm] Automatic Cuff Blood Pressure Position [Right Arm] Sitting 02 Sat by Pulse Oximetry 98 Oxygen Delivery Method Room Air Room Air Lab Data Lab results reviewed: Yes I reviewed the patient's lab results. Lab Results 03/05/24 20:36: WBC 15.7 H, RBC 5.25, Hgb 15.3, Hct 45.5, MCV 86.8, MCH 29.1, MCHC 33.5, RDW 16.4, Plt Count 450 H, MPV 7.2 L, Neut % (Auto) 92.7 H, Lymph % (Auto) 3.7 L, [place] % (Auto) 1.5 L, Eos % (Auto) 1.9, Baso % (Auto) 0.2, Neut # (Auto) 14.6 H, Lymph # (Auto) 0.6 L, [place] # (Auto) 0.2, Eos # (Auto) 0.3, Baso # (Auto) 0.0, Total Counted 100, Neutrophils % (Manual) 93 H, Lymphocytes % (Manual) 7 L, Platelet Estimate Normal, RBC Morphology Normal, Sodium 136, Potassium 4.1, Chloride 101, Carbon Dioxide 26, Anion Gap 13.1, BUN 20 H, Creatinine 0.80, Estimated Creat Clear 148, Estimated GFR 82, Est GFR ( Amer) 99, Glucose 104 H, Lactate 1.1, Calcium 9.8, Magnesium 2.0, Total Bilirubin 0.4, AST 22, ALT 27, Alkaline Phosphatase 78, Troponin I < 0.01, Total Protein 7.5, Albumin 4.5, Globulin 3.0, Albumin/Globulin Ratio 1.5, Lipase 118 03/05/24 20:38: Urine Color Yellow, Urine Appearance Clear, Urine pH 5.5, Ur Specific [place] >= 1.030, Urine Protein Negative, Urine Glucose (UA) Negative, Urine Ketones Negative, Urine Blood Negative, Urine Nitrate Negative, Urine Bilirubin Negative, Urine Urobilinogen 0.2, Ur Leukocyte Esterase Negative, Urine RBC Occasional, Urine WBC Occasional, Ur Squamous Epith Cells Occasional, Urine Bacteria None, Urine HCG, Qual Negative 03/05/24 20:36 03/05/24 20:36 Orders (Tests/Meds): ED MEDICATIONS Generic Name Dose Route Start Last Admin Trade Name Freq PRN Reason Stop Dose Admin Lactated Ringer's 1,000 mls @ 999 mls/hr 03/05/24 20:35 03/05/24 20:42 Lactated Ringer's 1000 Ml Bag IV 03/05/24 21:35 999 mls/hr .Q1H1M ONE Administration Sodium Chloride 10 ml 03/05/24 20:30 Sodium Chloride 0.9% 10ml Flush Syringe IV 04/04/24 20:29 NEEDED PRN Maintain IV Site Discontinued Medications Generic Name Dose Route Start Last Admin Trade Name Lindsay PRN Reason Stop Dose Admin Acetaminophen 1,000 mg 03/05/24 20:35 03/05/24 20:41 Acetaminophen 1,000mg/100ml Vial IV 03/05/24 20:36 1,000 mg ONCE ONE Administration Ondansetron HCl 4 mg 03/05/24 20:35 03/05/24 20:42 Ondansetron 4mg/2ml Vial IV 03/05/24 20:36 4 mg ONCE ONE Administration ORDERS Category Date Time Status CBC w/Auto Diff [Complete Blood Count Auto Diff] Stat Lab 03/05/24 20:36 Completed CMP [Comprehensive Metabolic Panel] Stat Lab 03/05/24 20:36 Completed Lactic Acid Stat Lab 03/05/24 20:36 Completed Lipase Stat Lab 03/05/24 20:36 Completed Magnesium Stat Lab 03/05/24 20:36 Completed Trop I [Troponin I] Stat Lab 03/05/24 20:36 Completed Troponin I Q3H Lab 03/05/24 23:45 Ordered Troponin I Q3H Lab 03/06/24 02:45 Ordered Urinalysis and Microscopic Stat Lab 03/05/24 20:38 Completed Urine , HCG Qual. Stat Lab 03/05/24 20:38 Completed Medical Decision Narrative: In summary patient is a 34-year-old female who presents to the emergency department for evaluation of nausea vomiting diarrhea abdominal pain. Patient is hemodynamically stable upon arrival, afebrile. Physical exam is remarkable for very mild nonfocal abdominal tenderness to palpation with normal bowel sounds without rigidity or guarding. Differential diagnosis includes ACS versus foodborne illness versus viral bacterial gastrointestinal infection. Initial workup will be conducted with hematologic labs urinalysis urine test. Initial interventions include crystalloid bolus Tylenol Zofran. Initial workup reviewed by me shows that her hematologic labs are nonactionable. Upon repeat evaluation she had acceptable resolution of her symptoms and is tolerating p.o. prior to discharge. Given this appropriate for discharge with a prescription for Zofran and close follow-up with her PCP <Fermin Peace MD - Last Filed: 03/05/24 21:31> Vital Signs: 03/05/24 20:22 03/05/24 21:29 Temperature 98.6 F 98.2 F Temperature Source Oral Oral Pulse Rate 83 Pulse Rate [Left] 107 H Respiratory Rate 18 18 Blood Pressure 114/73 Blood Pressure [Right Arm] 115/78 Blood Pressure Mean [Right Arm] 90 Blood Pressure Source [Right Arm] Automatic Cuff Blood Pressure Position [Right Arm] Sitting 02 Sat by Pulse Oximetry 98 Oxygen Delivery Method Room Air Room Air Lab Data Lab Results 03/05/24 20:36: WBC 15.7 H, RBC 5.25, Hgb 15.3, Hct 45.5, MCV 86.8, MCH 29.1, MCHC 33.5, RDW 16.4, Plt Count 450 H, MPV 7.2 L, Neut % (Auto) 92.7 H, Lymph % (Auto) 3.7 L, [place] % (Auto) 1.5 L, Eos % (Auto) 1.9, Baso % (Auto) 0.2, Neut # (Auto) 14.6 H, Lymph # (Auto) 0.6 L, [place] # (Auto) 0.2, Eos # (Auto) 0.3, Baso # (Auto) 0.0, Total Counted 100, Neutrophils % (Manual) 93 H, Lymphocytes % (Manual) 7 L, Platelet Estimate Normal, RBC Morphology Normal, Sodium 136, Potassium 4.1, Chloride 101, Carbon Dioxide 26, Anion Gap 13.1, BUN 20 H, Creatinine 0.80, Estimated Creat Clear 148, Estimated GFR 82, Est GFR ( Amer) 99, Glucose 104 H, Lactate 1.1, Calcium 9.8, Magnesium 2.0, Total Bilirubin 0.4, AST 22, ALT 27, Alkaline Phosphatase 78, Troponin I < 0.01, Total Protein 7.5, Albumin 4.5, Globulin 3.0, Albumin/Globulin Ratio 1.5, Lipase 118 03/05/24 20:38: Urine Color Yellow, Urine Appearance Clear, Urine pH 5.5, Ur Specific [place] >= 1.030, Urine Protein Negative, Urine Glucose (UA) Negative, Urine Ketones Negative, Urine Blood Negative, Urine Nitrate Negative, Urine Bilirubin Negative, Urine Urobilinogen 0.2, Ur Leukocyte Esterase Negative, Urine RBC Occasional, Urine WBC Occasional, Ur Squamous Epith Cells Occasional, Urine Bacteria None, Urine HCG, Qual Negative Orders (Tests/Meds): ED MEDICATIONS Generic Name Dose Route Start Last Admin Trade Name Freq PRN Reason Stop Dose Admin Lactated Ringer's 1,000 mls @ 999 mls/hr 03/05/24 20:35 03/05/24 20:42 Lactated Ringer's 1000 Ml Bag IV 03/05/24 21:35 999 mls/hr .Q1H1M ONE Administration Sodium Chloride 10 ml 03/05/24 20:30 Sodium Chloride 0.9% 10ml Flush Syringe IV 04/04/24 20:29 NEEDED PRN Maintain IV Site Discontinued Medications Generic Name Dose Route Start Last Admin Trade Name Jetq PRN Reason Stop Dose Admin Acetaminophen 1,000 mg 03/05/24 20:35 03/05/24 20:41 Acetaminophen 1,000mg/100ml Vial IV 03/05/24 20:36 1,000 mg ONCE ONE Administration Ondansetron HCl 4 mg 03/05/24 20:35 03/05/24 20:42 Ondansetron 4mg/2ml Vial IV 03/05/24 20:36 4 mg ONCE ONE Administration ORDERS Category Date Time Status CBC w/Auto Diff [Complete Blood Count Auto Diff] Stat Lab 03/05/24 20:36 Completed CMP [Comprehensive Metabolic Panel] Stat Lab 03/05/24 20:36 Completed Lactic Acid Stat Lab 03/05/24 20:36 Completed Lipase Stat Lab 03/05/24 20:36 Completed Magnesium Stat Lab 03/05/24 20:36 Completed Trop I [Troponin I] Stat Lab 03/05/24 20:36 Completed Troponin I Q3H Lab 03/05/24 23:45 Ordered Troponin I Q3H Lab 03/06/24 02:45 Ordered Urinalysis and Microscopic Stat Lab 03/05/24 20:38 Completed Urine , HCG Qual. Stat Lab 03/05/24 20:38 Completed ECG Data Tracing #1: Independently interpreted by me, rate is 84, rhythm is regular, axis is normal, no ST elevation in anatomical contiguous leads, QTc 398 Critical Care <TERRELL Fried - Last Filed: 03/05/24 21:27> Critical Care Time Critical Care Time: No
[2024-03-05] MEDS: ACETAMINOPHEN 1,000MG/100ML VIAL 1000 MG IV (20:41)
[2024-03-05] MEDS: LACTATED RINGERS 1000ML 1,000 ML 999 ML IV (20:42)
[2024-03-05] MEDS: ONDANSETRON 4MG/2ML VIAL 4 MG IV (20:42)
[2024-03-05 20:43] LABS: Microscopic, Urine URINE MICROSCOPIC (MICROSCOPIC)
[2024-03-05 20:48] LABS: Basophils % 0.2 % (0.1-2.0); Eosinophils # 0.3 K/mm3 (0.0-0.4); Eosinophils % 1.9 % (0.1-12.0); Hematocrit 45.5 % (37.0-47.0); Hemoglobin 15.3 g/dL (12.2-16.2); Lymphocytes # 0.6 K/mm3 (0.7-4.5); Lymphocytes % 3.7 % (10-50); Mean Corpuscular HGB Conc 33.5 g/dL (31.8-35.4); Mean Corpuscular Hemoglobin 29.1 pg (27.0-31.2); Mean Corpuscular Volume 86.8 fl (81-99); Mean Platelet Volume 7.2 fl (7.4-10.4); Monocytes # 0.2 K/mm3 (0.1-1.0); Monocytes % 1.5 % (1.7-9.3); Neutrophils # 14.6 K/mm3 (1.8-7.8); Neutrophils % 92.7 % (37.0-80.0); Platelet Count 450 K/mm3 (142-424); Red Blood Count 5.25 M/mm3 (4.20-5.40); Red Cell Distribution Width 16.4 % (11.5-17.5); White Blood Count 15.7 K/mm3 (4.8-10.8)
[2024-03-05 20:49] LABS: Appearance,Urine CLEAR (Clear); Bilirubin,Urine Negative (Negative); Blood, Urine Negative (Negative); Color,Urine YELLOW (Yellow); Glucose,Urine (UA) Negative (Negative); Ketones,Urine Negative (Negative); Leukocyte Esterase,Urine Negative (Negative); Nitrate,Urine Negative (Negative); PH,Urine 5.5 (5.0-8.5); Protein,Urine Negative (Negative); Specific Gravity, Urine >= 1.030 (1.005-1.030); Urobilinogen,Urine 0.2 EU/dl (0.2)
[2024-03-05 20:53] LABS: MANUAL DIFFERENTIAL MANUAL DIFFERENTIAL (MANUAL DIFF)
[2024-03-05 20:53] LABS: Urine Pregnancy, HCG Qual. Negative (Negative)
[2024-03-05 20:56] LABS: Chloride 101 mmol/L (98-107)
[2024-03-05 20:57] LABS: Potassium 4.1 mmoL/L (3.5-5.1); Sodium 136 mmol/L (136-145)
[2024-03-05 20:59] LABS: Alanine Aminotransferase 27 U/L (12-78); Alkaline Phosphatase 78 U/L (38-126); Anion Gap 13.1 mEq/L (5-15); Aspartate Amino Transferase 22 U/L (14-36); Bilirubin,Total 0.4 mg/dl (0.2-1.3); Blood Urea Nitrogen 20 mg/dl (7-17); Calcium 9.8 mg/dl (8.4-10.2); Carbon Dioxide 26 mmol/L (22.0-30.0); Creatinine Clearance Estimated 148 mL/min (50-200); Estimated Glomerular Filt Rate 82 ml/min (>60); GFR (African American) 99 ML/MIN (>60); Glucose 104 mg/dl (74-100)
[2024-03-05 21:00] LABS: Albumin Level 4.5 g/dl (3.5-5.0); Albumin/Globulin Ratio 1.5 (1.1-1.8); Lactic Acid 1.1 mmol/L (0.7-2.1); Lipase 118 U/L (23-300); Total Protein,Serum 7.5 g/dl (6.3-8.2)
[2024-03-05 21:12] LABS: WBC,Urine Occasional #/hpf (0-3)
[2024-03-05 21:13] LABS: Troponin I < 0.01 ng/ml (0.00-0.034)
[2024-03-05 21:17] LABS: Lymphocytes % 7 % (10-50); Neutrophils % 93 % (42-76); Platelet Estimate Normal; RBC Morphology Normal; Total Cells Counted 100
[2024-03-05 21:29] VITALS: BP 114/73; PULSE 83; RESP 18; TEMP 36.8; O2SAT 96
--- NOTE | 2024-03-05 21:29 | ECG_ITS ---
APPROVED REPORT Exam: Resting ECG HR:84 bpm ECG Measurements Heart Rate 84 AXES IN 163 P 48 QRSd 96 QRS 40 QT 357 T 40 QTc 398 Conclusion SINUS RHYTHM LOW QRS VOLTAGE IN PRECORDIAL LEADS [QRS DEFLECTION < 1.0 mV IN CHEST LEADS] POSSIBLE RIGHT VENTRICULAR CONDUCTION DELAY [RSR (QR) IN V1/V2] BORDERLINE ECG Electronically signed by : CALLY DAMON, 03/10/2024 04:37:05
[2024-03-05 23:08] LABS: Amorphous Sediment,Urine 1+ /lpf
[2024-03-05 23:09] LABS: Bacteria,Urine Trace /lpf
== END 2024-03-05 21:31 | disposition home or self-care (01) ==
PROVIDERS: Physician Assistant; Emergency Provider Emergency Medicine; PCP Family Medicine
DX: R10.10 Upper abdominal pain, unspecified (principal); R11.2 Nausea with vomiting, unspecified; R19.7 Diarrhea, unspecified; I10 Essential (primary) hypertension
CPT/HCPCS: 80053; 81001; 81025; 83605; 83690; 83735; 84484; 85007; 85025; 93005; 96361; 96374; 96375; 99284; J0131; J2405

== ENCOUNTER 2024-03-06 18:49 | Emergency (ER) | payer OTHER, SELFPAY ==
[2024-03-06 19:00] VITALS: BP 138/96; PULSE 92; RESP 18; TEMP 37.4; O2SAT 98; BMI 36.4
--- NOTE | 2024-03-06 19:31 | ED_ITS ---
Discharge Plan Disposition Patient Disposition: Home, Self-Care Condition: Good Prescriptions Prescriptions: No Action buspirone 5 mg tablet 5 mg PO BID atorvastatin [Lipitor] 10 mg tablet 10 mg PO HS Qty: 30 2RF cetirizine 10 mg capsule 10 mg PO DAILY Qty: 30 6RF diclofenac sodium 75 mg tablet,delayed release (DR/EC) 75 mg PO BID Qty: 60 6RF ferrous sulfate [iron] 325 mg (65 mg iron) tablet 325 mg PO DAILY Qty: 30 5RF lisinopril-hydrochlorothiazide 10-12.5 mg tablet 1 tab PO DAILY Qty: 30 6RF omeprazole 40 mg capsule,delayed release(DR/EC) 40 mg PO ONCE Qty: 30 4RF ergocalciferol (vitamin D2) [Vitamin D2] 1,250 mcg (50,000 unit) capsule 1,250 mcg PO WEEKLY Qty: 12 2RF Nurtec ODT 75 mg tablet,disintegrating 75 mg PO Q OTHER DAY PRN (Reason: migraine headache) Qty: 14 2RF ondansetron 4 mg tablet,disintegrating 4 mg PO Q6H PRN (Reason: nausea and vomiting) Qty: 10 0RF Referrals Follow up/Referrals: Yesika Trejo APRN [Primary Care Provider] - See instructions Activity Restrictions/Add. Instructions Additional Instructions/Restrictions: Drink extra fluids with and between meals. If you have difficulty drinking, try very small amounts of water or suck on ice chips. ? Avoid fruit juices, as these do not replace minerals and can actually increase diarrhea. ? Children and adults can use sports drinks to replenish electrolytes. Younger children and infants should use products formulated for children, like oral rehydration solutions. ? Eat food in small amounts and let your stomach recover. ? Get lots of rest. You may feel tired or weak. ? No greasy or fried foods for the next 24-48 hours BRAT diet Bananas Rice Apples and [place] ? Make sure to drink plenty of liquids ? Return if needed ? Straight to ER if any life threatening symptoms ? Zofran as prescribed ? You was given an outpatient order for diarrhea panel, please collect specimen and bring back to outpatient lab then call back to the [facility] or follow up with family doctor for results ? Follow up with family doctor in the next 48-72 hours if no improvement or any worsening of symptoms Clinical Impressions Clinical Impression: Diarrhea, Body aches Instructions Patient Instructions: Diarrhea, Acetaminophen (Alternative Therapy) Discharge ED Provider: Carmen Ibanez [facility] HPI General Stated complaint: bilateral leg pain Mode of Arrival: Ambulatory Source of Information: Patient Limitations: No Limitations Time Seen by Provider: 03/06/24 19:32 Description of Symptoms (Recalled from Triage Doc. by RN): Pt's symptoms body aches, light headed, and diarrhea. The whole family has food poisioning. HEENT Symptoms (Recalled from RN notes): Yes Resp Symptoms (Recalled from RN notes): No Skin Symptoms (Recalled from RN notes): No MS Symptoms (Recalled from RN notes): No Functional Status (Recalled from RN notes): n/a History of Present Illness Provider Complaint: Patient states that she was seen in the ER in [place] last night and was dx with food poisoning and they give her some tylenol States that yesterday she was feeling light headed and today she is still feeling achy, having diarrhea and some nausea and her legs are achy but she has not had any swelling or edema in them States that they prescribed her some zofran but she just picked it up took it home and came back here wanting to get something to help with the body aches and diarrhea States that in the ED last night they give her Tylenol 3 and it helped Related Data Home Medications Medication Instructions Recorded Confirmed buspirone 5 mg tablet 5 mg PO BID 12/01/23 03/06/24 Previous Rx's Medication Instructions Recorded atorvastatin 10 mg tablet (Lipitor) 10 mg PO HS #30 tabs 12/26/23 cetirizine 10 mg capsule 10 mg PO DAILY #30 caps 12/26/23 diclofenac sodium 75 mg 75 mg PO BID #60 tabs 12/26/23 tablet,delayed release ferrous sulfate 325 mg (65 mg 325 mg PO DAILY #30 tabs 12/26/23 iron) tablet (iron) lisinopril 10 1 tab PO DAILY #30 tabs 12/26/23 mg-hydrochlorothiazide 12.5 mg tablet omeprazole 40 mg capsule,delayed 40 mg PO ONCE #30 caps 12/26/23 release ergocalciferol (vitamin D2) 1,250 1,250 mcg PO WEEKLY #12 caps 02/08/24 mcg (50,000 unit) capsule (Vitamin D2) rimegepant 75 mg disintegrating 75 mg PO Q OTHER DAY PRN migraine 02/08/24 tablet (Nurtec ODT) headache #14 tabs ondansetron 4 mg disintegrating 4 mg PO Q6H PRN nausea and 03/05/24 tablet vomiting #10 tabs Allergies Allergy/AdvReac Type Severity Reaction Status Date / Time amoxicillin [AMOXICILLIN] Allergy Unknown Verified 03/06/24 19:14 Penicillins [PENICILLINS] Allergy Unknown Verified 03/06/24 19:14 Worker's Comp Is this a Worker's Comp case?: No [facility] Disclaimer: The information contained in this section may have been updated after the patient was seen, as this information can be updated by other users. Medical History (Updated 03/06/24 @ 20:11 by Carmen Ibanez APRN) Abdominal pain Low back strain Pneumonia Depression Sinusitis Acute bronchitis Anxiety Asthma Hypertension Upper respiratory infection, viral Acute wrist pain Choking episode Viral syndrome Otitis media Viral upper respiratory infection Conjunctivitis Mucus plugging of bronchi Acute bronchitis Strep throat Surgical History History of section Social History Smoking Status: Never smoker alcohol intake: never current occupational status: other Travel in the last 8 weeks: None ROS Obtained: Yes All systems reviewed & no additional complaints except as documented and Yes Systems reviewed as appropriate & no additional complaints except as documented Constitutional Constitutional: Reports system reviewed and no additional complaints, except as documented, Reports as per HPI, Reports body ache, Denies chills and Denies fever(s) ENT Ears, Nose, Mouth, and Throat: Reports system reviewed and no additional complaints, except as documented and Reports as per HPI Cardiovascular Cardiovascular: Reports system reviewed and no additional complaints, except as documented and Reports as per HPI Respiratory Respiratory: Reports system reviewed and no additional complaints, except as documented and Reports as per HPI Gastrointestinal Gastrointestingal: Reports system reviewed and no additional complaints, except as documented, as per HPI, diarrhea and nausea; Denies abdominal pain or vomiting Genitourinary Female Genitourinary: Reports system reviewed and no additional complaints, except as documented and Reports as per HPI Physical Exam General General appearance: alert and in no apparent distress ENT ENT exam: Present mucous membranes moist Respiratory Respiratory exam: Present normal lung sounds bilaterally; Absent respiratory distress or wheezes Cardiovascular Cardiovascular exam: Present regular rate and normal rhythm Abdominal Exam Abdominal exam: Present soft and normal bowel sounds; Absent distention or tenderness Neurological Exam Neurological exam: Present alert, oriented X3 and normal gait Medical Decision Making Jordan Inquiry Pt receiving controlled substance: No Jordan was queried for this patient: No Vital Signs: 03/06/24 19:00 Temperature 99.4 F Temperature Source Oral Pulse Rate [Right Radial] 110 H Respiratory Rate 18 Blood Pressure [Right Arm] 138/96 H Blood Pressure Mean [Right Arm] 110 Blood Pressure Source [Right Arm] Automatic Cuff Blood Pressure Position [Right Arm] Sitting 02 Sat by Pulse Oximetry 98 Oxygen Delivery Method Room Air Medical Decision Narrative: Patient was given tylenol and zofran and drink a gatoraid states that he legs are no longer feeling achy and she feels much better ready to go home Patient given strict return instructions and educated to make sure that he is drinking plenty of fluids to keep herself hydrated and follow up with PC[facility] if symtoms continue or worsen
[2024-03-06] MEDS: ONDANSETRON 4MG ODT 4 MG SL (19:44)
[2024-03-06] MEDS: ACETAMINOPHEN 325MG TAB 650 MG PO (19:44)
[2024-03-06 20:23] VITALS: BP 138/96; PULSE 92; RESP 18; TEMP 37.4; O2SAT 98
== END 2024-03-06 20:23 | disposition home or self-care (01) ==
PROVIDERS: Emergency Provider Nurse Practitioner; PCP Family Medicine
DX: R19.7 Diarrhea, unspecified (principal); R11.0 Nausea; M79.18 Myalgia, other site
CPT/HCPCS: 99212; 99214; G0463

== ENCOUNTER 2024-03-19 14:02 | Emergency (ER) | payer OTHER, SELFPAY ==
[2024-03-19 14:40] VITALS: BP 108/69; PULSE 97; RESP 18; TEMP 36.9; O2SAT 98; BMI 38.5
--- NOTE | 2024-03-19 14:41 | XR_ITS ---
FINAL REPORT CLINICAL HISTORY: Left forearm pain COMPARISON: None FINDINGS: 2 views of the left forearm were obtained. There is no acute fracture or dislocation. The joints are intact. There are no soft tissue abnormalities. IMPRESSION: No acute process. Reviewed, Interpreted and Dictated by John Montez III, MD Transcribed by Sheela Knight Authenticated and [facility]
--- NOTE | 2024-03-19 14:44 | XR_ITS ---
FINAL REPORT CLINICAL HISTORY: Left elbow pain COMPARISON: None FINDINGS: 3 views of the elbow were obtained. There is no acute fracture or dislocation. The joint spaces are intact. The soft tissues are unremarkable. IMPRESSION: No acute process. Reviewed, Interpreted and Dictated by John Montez III, MD Transcribed by Sheela Knight Authenticated and [facility]
--- NOTE | 2024-03-19 14:44 | XR_ITS ---
FINAL REPORT CLINICAL HISTORY: Left hand pain COMPARISON: None FINDINGS: LEFT HAND: 3 views of the left hand were obtained. There is no acute fracture or dislocation. Visualized joint spaces are normally aligned. Soft tissues are unremarkable. IMPRESSION: No acute bony abnormality. Reviewed, Interpreted and Dictated by John Montez III, MD Transcribed by Sheela Knight Authenticated and [facility]
--- NOTE | 2024-03-19 15:59 | EXP.UTC ---
Discharge Plan Disposition Patient Disposition: Home, Self-Care Condition: Good Prescriptions Prescriptions: No Action buspirone 5 mg tablet 5 mg PO DAILY cetirizine 10 mg tablet 10 mg PO DAILY atorvastatin 10 mg tablet 10 mg PO HS omeprazole 40 mg capsule,delayed release(DR/EC) 40 mg PO DAILY ferrous sulfate [FeroSul] 325 mg (65 mg iron) tablet 325 mg PO DAILY diclofenac sodium 75 mg tablet,delayed release (DR/EC) 75 mg PO DAILY ergocalciferol (vitamin D2) [Vitamin D2] 1,250 mcg (50,000 unit) capsule 1,250 mcg PO DAILY lisinopril-hydrochlorothiazide 10-12.5 mg tablet 1 tab PO DAILY Referrals Follow up/Referrals: Yesika Trejo APRN [Primary Care Provider] - See instructions Clinical Impressions Clinical Impression: Muscle strain of left wrist Qualifiers: Encounter type: initial encounter Qualified Code(s): S66.912A - Strain of unspecified muscle, fascia and tendon at wrist and hand level, left hand, initial encounter Instructions Patient Instructions: DI for Wrist Strain Discharge ED Provider: Jessica Ortiz [facility] General Stated complaint: Left wrist/arm pain Mode of Arrival: Ambulatory Source of Information: Patient Limitations: No Limitations Time Seen by Provider: 03/19/24 15:20 Description of Symptoms (Recalled from Triage Doc. by RN): PATIENT C/O PAIN TO LEFT ARM FROM WRIST TO ELBOW THAT STARTED TODAY, HEENT Symptoms (Recalled from RN notes): No Resp Symptoms (Recalled from RN notes): No Skin Symptoms (Recalled from RN notes): No MS Symptoms (Recalled from RN notes): Yes Functional Status (Recalled from RN notes): WNL History of Present Illness Provider Complaint: Pt relates that after getting her [place] loaded and delivered she started having left wrist pain that went to her elbow with movement. She states that this has happened before and she will wear a brace for a bit and it will go away. Related Data Home Medications Medication Instructions Recorded Confirmed atorvastatin 10 mg tablet 10 mg PO HS 03/19/24 03/19/24 buspirone 5 mg tablet 5 mg PO DAILY 03/19/24 03/19/24 cetirizine 10 mg tablet 10 mg PO DAILY 03/19/24 03/19/24 diclofenac sodium 75 mg 75 mg PO DAILY 03/19/24 03/19/24 tablet,delayed release ergocalciferol (vitamin D2) 1,250 1,250 mcg PO DAILY 03/19/24 03/19/24 mcg (50,000 unit) capsule (Vitamin D2) ferrous sulfate 325 mg (65 mg 325 mg PO DAILY 03/19/24 03/19/24 iron) tablet (FeroSul) lisinopril 10 1 tab PO DAILY 03/19/24 03/19/24 mg-hydrochlorothiazide 12.5 mg tablet omeprazole 40 mg capsule,delayed 40 mg PO DAILY 03/19/24 03/19/24 release Allergies Allergy/AdvReac Type Severity Reaction Status Date / Time amoxicillin [AMOXICILLIN] Allergy Unknown Verified 03/06/24 19:14 Penicillins [PENICILLINS] Allergy Unknown Verified 03/06/24 19:14 Worker's Comp Is this a Worker's Comp case?: No [facility] Disclaimer: The information contained in this section may have been updated after the patient was seen, as this information can be updated by other users. Medical History (Updated 03/19/24 @ 16:01 by Jessica Ortiz APRN) Abdominal pain Low back strain Pneumonia Depression Sinusitis Acute bronchitis Anxiety Asthma Hypertension Upper respiratory infection, viral Acute wrist pain Choking episode Viral syndrome Otitis media Viral upper respiratory infection Conjunctivitis Mucus plugging of bronchi Acute bronchitis Strep throat Surgical History History of section Social History Smoking Status: Never smoker alcohol intake: never current occupational status: other Travel in the last 8 weeks: None ROS Obtained: Yes All systems reviewed & no additional complaints except as documented Constitutional Constitutional: Reports system reviewed and no additional complaints, except as documented Eyes Eyes: Reports system reviewed and no additional complaints, except as documented ENT Ears, Nose, Mouth, and Throat: Reports system reviewed and no additional complaints, except as documented Cardiovascular Cardiovascular: Reports system reviewed and no additional complaints, except as documented Respiratory Respiratory: Reports system reviewed and no additional complaints, except as documented Gastrointestinal Gastrointestingal: Reports system reviewed and no additional complaints, except as documented Genitourinary Female Genitourinary: Reports system reviewed and no additional complaints, except as documented Musculoskeletal Musculoskeletal: Reports system reviewed and no additional complaints, except as documented, Reports arthralgias and Reports myalgias Integumentary/Breasts Skin/Breast: Reports system reviewed and no additional complaints, except as documented Neurologic Neurologic: Reports system reviewed and no additional complaints, except as documented Endocrine Endocrine: Reports system reviewed and no additional complaints, except as documented Hematologic/Lymphatic Henatologic/Lymphatic: Reports system reviewed and no additional complaints, except as documented Allergic/Immunologic Allergic/Immunologic: Reports system reviewed and no additional complaints, except as documented Physical Exam General General appearance: alert and in no apparent distress Head Head exam: atraumatic and normocephalic Eye Eye exam: Present normal appearance ENT ENT exam: Present normal exam and normal oropharynx Neck Neck exam: Present normal inspection Chest Chest inspection: Present normal inspection and symmetric chest wall rise Respiratory Respiratory exam: Present normal lung sounds bilaterally Cardiovascular Cardiovascular exam: Present regular rate and normal rhythm Abdominal Exam Abdominal exam: Present soft Extremities Exam Extremities exam: Present tenderness and normal capillary refill Expanded Upper Extremity Exam Left: Shoulder exam: Present normal inspection Arm exam: Present normal inspection Elbow exam: Present normal inspection Forearm/Wrist exam: Present tenderness Hand exam: Present normal inspection Neuromotor exam: Normal wrist extension and thumb opposition Neurosensory exam: Normal radial nerve and ulnar nerve Vascular exam: Normal capillary refill Back Exam Back exam: Present normal inspection Neurological Exam Neurological exam: Present alert and oriented X3 Psychiatric Psychiatric exam: Present normal affect and normal mood Skin Skin exam: Present warm, dry and intact Lymphatic Lymphatic Findings: no adenopathy Medical Decision Making Jordan Inquiry Pt receiving controlled substance: No Jordan was queried for this patient: No Vital Signs: 03/19/24 14:40 Temperature 98.5 F Temperature Source Oral Pulse Rate [Left Brachial] 97 H Respiratory Rate 18 Blood Pressure [Left Arm] 108/69 L Blood Pressure Mean [Left Arm] 82 Blood Pressure Source [Left Arm] Automatic Cuff Blood Pressure Position [Left Arm] Sitting 02 Sat by Pulse Oximetry 98 Oxygen Delivery Method Room Air Orders (Tests/Meds): ORDERS Category Date Time Status Forearm XR left 2 views [XR forearm LT 2V] Stat Exams 03/19/24 14:41 Completed XR elbow LT min 3V Stat Exams 03/19/24 14:44 Completed XR hand LT min 3V Stat Exams 03/19/24 14:44 Taken Radiology Data #1: Image(s): Forearm Image Reviewed: Yes I reviewed the patient's radiology results Preliminary Findings: Normal/NAD FINDINGS: 2 views of the left forearm were obtained. There is no acute fracture or dislocation. The joints are intact. There are no soft tissue abnormalities. IMPRESSION: No acute process. #2: Image(s): Elbow Image Reviewed: Yes I reviewed the patient's radiology results Preliminary Findings: Normal/NAD FINDINGS: 3 views of the elbow were obtained. There is no acute fracture or dislocation. The joint spaces are intact. The soft tissues are unremarkable. IMPRESSION: No acute process.
[2024-03-19 16:19] VITALS: BP 108/69; PULSE 97; RESP 18; TEMP 36.9; O2SAT 98
== END 2024-03-19 16:20 | disposition home or self-care (01) ==
PROVIDERS: Emergency Provider Nurse Practitioner Family; PCP Family Medicine
DX: S66.912A Strain of unspecified muscle, fascia and tendon at wrist and hand level, left hand, initial encounter (principal); M25.532 Pain in left wrist; X50.0XXA Overexertion from strenuous movement or load, initial encounter
CPT/HCPCS: 73080; 73090; 73130; 99212; 99214; G0463

== ENCOUNTER 2024-03-23 10:21 | Outpatient (CLI) | payer OTHER, SELFPAY ==
[2024-03-23 19:14] LABS: Alanine Aminotransferase 53 U/L (12-78); Albumin/Globulin Ratio 1.4 (1.1-1.8); Alkaline Phosphatase 100 U/L (38-126); Anion Gap 13.9 mEq/L (5-15); Aspartate Amino Transferase 45 U/L (14-36); Bilirubin,Indirect 0.3 mg/dL (0.0-0.9); Bilirubin,Total 0.3 mg/dl (0.2-1.3); Bilirubin,Unconjugated 0.4 mg/dL (0.0-1.1); Blood Urea Nitrogen 10 mg/dl (7-17); Calcium 9.3 mg/dl (8.4-10.2); Carbon Dioxide 24 mmol/L (22.0-30.0); Chloride 101 mmol/L (98-107); Chol/HDL Ratio 5.1 (1-3.5); Cholesterol 202 mg/dl (140-200); Estimated Glomerular Filt Rate 95 ml/min (>60); GFR (African American) 115 ML/MIN (>60); Globulin 2.8 g/dL (1.3-3.2); Glucose 88 mg/dl (74-100); HDL Cholesterol 40 mg/dl (40-60); Potassium 3.9 mmoL/L (3.5-5.1); Sodium 135 mmol/L (136-145); Total Protein,Serum 6.8 g/dl (6.3-8.2); Triglycerides 259 mg/dl (30-150); VLDL Cholesterol 52 mg/dL (0-40)
[2024-03-23 19:25] LABS: Direct LDL Cholesterol 113.64 mg/dL (100-129)
== END 2024-03-23 23:59 | disposition home or self-care (01) ==
LOC: LAB.DROPOF 03-26 10:21
PROVIDERS: Visit Provider Family Medicine
DX: D50.9 Iron deficiency anemia, unspecified (principal); E55.9 Vitamin D deficiency, unspecified; I10 Essential (primary) hypertension; G43.909 Migraine, unspecified, not intractable, without status migrainosus
CPT/HCPCS: 80053; 80061; 80076

== ENCOUNTER 2024-04-01 11:35 | Emergency (ER) | payer OTHER, SELFPAY ==
--- NOTE | 2024-04-01 12:25 | EXP.UTC ---
Discharge Plan Disposition Patient Disposition: Home, Self-Care Condition: Good Prescriptions Prescriptions: No Action buspirone 5 mg tablet 5 mg PO DAILY ropinirole 1 mg tablet 1 mg PO HS cetirizine 10 mg tablet 10 mg PO DAILY atorvastatin 10 mg tablet 10 mg PO DAILY valacyclovir 1 gram tablet 1 mg PO DAILY omeprazole 40 mg capsule,delayed release(DR/EC) 40 mg PO DAILY naproxen sodium 550 mg tablet 550 mg PO Q6HP PRN (Reason: Pain) ferrous sulfate [FeroSul] 325 mg (65 mg iron) tablet 325 mg PO DAILY ergocalciferol (vitamin D2) [Vitamin D2] 1,250 mcg (50,000 unit) capsule 1,250 mcg PO DAILY lisinopril-hydrochlorothiazide 10-12.5 mg tablet 1 tab PO DAILY Referrals Follow up/Referrals: Yesika Trejo APRN [Primary Care Provider] - See instructions Activity Restrictions/Add. Instructions Additional Instructions/Restrictions: Drink plenty of fluids. Take the medications as directed that you were prescribed at [facility]. Follow up with your regular doctor. GO TO THE ER FOR ANY WORSENING SYMPTOMS Clinical Impressions Clinical Impression: Shingles Instructions Patient Instructions: JAMIE Turcios for Shingles Discharge ED Provider: Lev Sosa [facility] General Stated complaint: left rib pain Time Seen by Provider: 04/01/24 12:25 History of Present Illness Provider Complaint: She states that for the past 4 days she has had pain and tenderness of her middle back around her left ribs to the front of her chest. She also has a blistery painful rash. She was seen at [facility] last night and she was diagnosed with shingles. She came in to have her ribs checked here. She denies any injury. She denies any chest pain. Related Data Home Medications Medication Instructions Recorded Confirmed atorvastatin 10 mg tablet 10 mg PO DAILY 04/01/24 04/01/24 buspirone 5 mg tablet 5 mg PO DAILY 04/01/24 04/01/24 cetirizine 10 mg tablet 10 mg PO DAILY 04/01/24 04/01/24 ergocalciferol (vitamin D2) 1,250 1,250 mcg PO DAILY 04/01/24 04/01/24 mcg (50,000 unit) capsule (Vitamin D2) ferrous sulfate 325 mg (65 mg 325 mg PO DAILY 04/01/24 04/01/24 iron) tablet (FeroSul) lisinopril 10 1 tab PO DAILY 04/01/24 04/01/24 mg-hydrochlorothiazide 12.5 mg tablet naproxen sodium 550 mg tablet 550 mg PO Q6HP PRN Pain 04/01/24 04/01/24 omeprazole 40 mg capsule,delayed 40 mg PO DAILY 04/01/24 04/01/24 release ropinirole 1 mg tablet 1 mg PO HS 04/01/24 04/01/24 valacyclovir 1 gram tablet 1 mg PO DAILY 04/01/24 04/01/24 Allergies Allergy/AdvReac Type Severity Reaction Status Date / Time amoxicillin [AMOXICILLIN] Allergy Unknown Verified 03/23/24 08:53 Penicillins [PENICILLINS] Allergy Unknown Verified 03/23/24 08:53 [facility] Disclaimer: The information contained in this section may have been updated after the patient was seen, as this information can be updated by other users. Medical History (Updated 04/01/24 @ 13:02 by Lev Sosa APRN) Chest pain Strain of right trapezius muscle Atypical chest pain Nausea vomiting and diarrhea Diarrhea Body aches Muscle strain of left wrist Abdominal pain Low back strain Pneumonia Depression Sinusitis Acute bronchitis Anxiety Asthma Hypertension Upper respiratory infection, viral Acute wrist pain Choking episode Viral syndrome Otitis media Viral upper respiratory infection Conjunctivitis Mucus plugging of bronchi Acute bronchitis Strep throat Surgical History History of section Social History Smoking Status: Never smoker alcohol intake: never current occupational status: other Travel in the last 8 weeks: None ROS Obtained: Yes All systems reviewed & no additional complaints except as documented Constitutional Constitutional: Denies chills and Denies fever(s) Eyes Eyes: Denies eye discharge ENT Ears, Nose, Mouth, and Throat: Denies dizziness, Denies otalgia and Denies sore throat Cardiovascular Cardiovascular: Denies chest pain Respiratory Respiratory: Denies shortness of breath, Denies chest congestion, Denies cough, Denies stridor and Denies wheezing Gastrointestinal Gastrointestingal: Denies nausea or vomiting Musculoskeletal Musculoskeletal: Reports system reviewed and no additional complaints, except as documented and Denies arthralgias Integumentary/Breasts Skin/Breast: Reports as per HPI and Reports rash Neurologic Neurologic: Denies dizziness and Denies paresthesias Allergic/Immunologic Allergic/Immunologic: Denies wheezing Physical Exam General General appearance: alert and in no apparent distress Head Head exam: atraumatic, normocephalic and normal inspection Eye Eye exam: Present normal appearance, PERRL and EOMI ENT ENT exam: Present normal exam, normal oropharynx, mucous membranes moist, TM's normal bilaterally and normal external ear exam Neck Neck exam: Present normal inspection, full ROM and trachea midline; Absent meningismus or lymphadenopathy Chest Chest inspection: Present normal inspection and symmetric chest wall rise; Absent tenderness Respiratory Respiratory exam: Present normal lung sounds bilaterally; Absent respiratory distress Cardiovascular Cardiovascular exam: Present regular rate and normal rhythm; Absent JVD Abdominal Exam Abdominal exam: Present soft and normal bowel sounds; Absent distention, tenderness or guarding Extremities Exam Extremities exam: Present normal inspection, full ROM and normal capillary refill; Absent calf tenderness Back Exam Back exam: Present normal inspection; Absent tenderness Neurological Exam Neurological exam: Present alert and oriented X3 Psychiatric Psychiatric exam: Present normal affect and normal mood Skin Skin exam: Present rash (there are patches of vesicles that spread from her upper middle back around the left side of her chest to the front of her chest. ) Lymphatic Lymphatic Findings: no adenopathy Medical Decision Making Medical Records Medical records reviewed: No I reviewed the patient's medical records. Jordan Inquiry Pt receiving controlled substance: No
--- NOTE | 2024-04-01 12:29 | XR_ITS ---
PROCEDURE INFORMATION: Exam: XR Left Ribs with PA Chest Exam date and time: 04/01/2024 12:26 PM Age: 34 years old Clinical indication: Pain; Other: Posterior, ribs L TECHNIQUE: Imaging protocol: Radiologic exam of the left ribs with PA chest. Views: 3 views COMPARISON: CR XR RIBS LT MIN 3V W CXR1V 08/28/2023 13:27 FINDINGS: Lungs: Small old calcified bilateral hilar lymph nodes. The lungs are clear. Pleural spaces: Unremarkable. No pleural effusion. No pneumothorax. Heart/Mediastinum: The heart is normal in size. Bones/joints: No acute osseous lesions. The left ribs are intact. IMPRESSION: 1. No radiographic evidence of acute cardiopulmonary disease. 2. The ribs are intact. 3. Small old calcified bilateral hilar lymph nodes.
[2024-04-01 12:30] VITALS: BP 126/72; PULSE 80; RESP 20; TEMP 36.8; O2SAT 99; BMI 37.9
[2024-04-01 13:03] VITALS: BP 126/72; PULSE 80; RESP 20; TEMP 36.8; O2SAT 99
--- NOTE | 2024-04-10 10:00 | PC.NURSE ---
Rib xray is negative.
== END 2024-04-01 13:07 | disposition home or self-care (01) ==
PROVIDERS: Emergency Provider Nurse Practitioner Family; PCP Family Medicine
DX: B02.9 Zoster without complications (principal)
CPT/HCPCS: 71101; 99212; 99213; G0463

== ENCOUNTER 2024-11-02 13:40 | Outpatient (CLI) | payer OTHER, SELFPAY ==
--- NOTE | 2024-11-02 13:41 | US_ITS ---
FINAL REPORT CLINICAL HISTORY: swelling FINDINGS: Limited graphic images of the right hand were obtained. There is a hypoechoic nodule in the region of interest measuring 7 x 4 x 3 mm which is nonspecific, could represent a ganglion cyst, fibroma, or other benign lesion. This is noted to be 2 mm superficial to the bony surface but clearly separate from bone. IMPRESSION: Nonspecific lesion as detailed above without bony involvement. Reviewed, Interpreted and Dictated by Nuno Weston MD Transcribed by Alea Oneal Authenticated and [facility]
== END 2024-11-02 23:59 | disposition home or self-care (01) ==
LOC: RAD 13:41
PROVIDERS: PCP Family Medicine; Visit Provider Family Medicine
DX: R60.9 Edema, unspecified (principal)
CPT/HCPCS: 76882

== ENCOUNTER 2024-11-20 12:31 | Emergency (ER) | payer OTHER, SELFPAY ==
--- NOTE | 2024-11-20 13:45 | ED_ITS ---
Discharge Plan Disposition Patient Disposition: Home, Self-Care Condition: Good Prescriptions Prescriptions: New benzonatate 100 mg capsule 100 mg PO TIDP PRN (Reason: Cough) Qty: 30 0RF oseltamivir [Tamiflu] 75 mg capsule 75 mg PO BID 5 Days Qty: 10 0RF ondansetron 4 mg Tablet,Disintegrating 4 mg PO Q8H PRN (Reason: Nausea) Qty: 12 0RF No Action loratadine [Loradamed] 10 mg tablet 10 mg PO DAILY Qty: 90 2RF Debrox 6.5 % drops 5 drp otic (ear) BID 4 Days Qty: 15 0RF azelastine 137 mcg (0.1 %) spray,non-aerosol 137 mcg intranasal BID Qty: 8.22 2RF Rx Instructions: administer into each nostril ergocalciferol (vitamin D2) [Vitamin D2] 1,250 mcg (50,000 unit) capsule 1,250 mcg PO QWEEK Qty: 4 2RF ropinirole 1 mg tablet See Rx Instructions .ROUTE .COMPLEX Qty: 90 1RF Dose Instruction: TAKE 1 TABLET BY MOUTH AT BEDTIME NIGHTLY; ADMINISTER 1-3 HOURS BEFORE BEDTIME Rx Instructions: TAKE 1 TABLET BY MOUTH AT BEDTIME NIGHTLY; ADMINISTER 1-3 HOURS BEFORE BEDTIME ferrous sulfate [FeroSul] 325 mg (65 mg iron) tablet See Rx Instructions .ROUTE .COMPLEX Qty: 90 2RF Dose Instruction: TAKE 1 TABLET BY MOUTH ONCE DAILY Rx Instructions: TAKE 1 TABLET BY MOUTH ONCE DAILY buspirone 5 mg tablet 5 mg PO DAILY atorvastatin 10 mg tablet 10 mg PO DAILY omeprazole 40 mg capsule,delayed release(DR/EC) 40 mg PO DAILY naproxen sodium 550 mg tablet 550 mg PO Q6HP PRN (Reason: Pain) lisinopril-hydrochlorothiazide 10-12.5 mg tablet 1 tab PO DAILY Referrals Follow up/Referrals: Yesika Trejo APRN [Primary Care Provider] - See instructions Activity Restrictions/Add. Instructions Additional Instructions/Restrictions: Drink plenty of fluids. Take tylenol or ibuprofen for pain or fever. Take the medications as directed. Follow up with your regular doctor. GO TO THE ER FOR ANY WORSENING SYMPTOMS Clinical Impressions Clinical Impression: Influenza A Instructions Patient Instructions: Influenza, DI for Influenza -- Adult, Oseltamivir Print Language Print Language: British Discharge ED Provider: Lev Sosa [facility] [place] HPI General Stated complaint: vomiting, diarrhea Time Seen by Provider: 11/20/24 13:47 Related Data Home Medications ?Medication ?Instructions ?Recorded ?Confirmed atorvastatin 10 mg tablet 10 mg PO DAILY 04/01/24 10/29/24 buspirone 5 mg tablet 5 mg PO DAILY 04/01/24 10/29/24 lisinopril 10 1 tab PO DAILY 04/01/24 10/29/24 mg-hydrochlorothiazide 12.5 mg tablet naproxen sodium 550 mg tablet 550 mg PO Q6HP PRN Pain 04/01/24 10/29/24 omeprazole 40 mg capsule,delayed 40 mg PO DAILY 04/01/24 10/29/24 release Previous Rx's ?Medication ?Instructions ?Recorded loratadine 10 mg tablet (Loradamed) 10 mg PO DAILY #90 tabs 06/21/24 ergocalciferol (vitamin D2) 1,250 1,250 mcg PO QWEEK #4 caps 06/22/24 mcg (50,000 unit) capsule (Vitamin D2) ropinirole 1 mg tablet See Rx Instructions .Route 07/02/24 .COMPLEX #90 tabs azelastine 137 mcg (0.1 %) nasal 137 mcg (0.137 mL) intranasal BID 09/19/24 spray #8.22 mL carbamide peroxide 6.5 % ear drops 5 drp otic (ear) BID 4 days #15 mL 09/19/24 (Debrox) ferrous sulfate 325 mg (65 mg See Rx Instructions .Route 09/21/24 iron) tablet (FeroSul) .COMPLEX #90 tabs benzonatate 100 mg capsule 100 mg PO TIDP PRN Cough #30 caps 11/20/24 ondansetron 4 mg disintegrating 4 mg PO Q8H PRN Nausea #12 tabs 11/20/24 tablet oseltamivir 75 mg capsule (Tamiflu) 75 mg PO BID 5 days #10 caps 11/20/24 Allergies Allergy/AdvReac Type Severity Reaction Status Date / Time amoxicillin (AMOXICILLIN) Allergy Unknown Verified 10/29/24 16:20 Penicillins (PENICILLINS) Allergy Unknown Verified 10/29/24 16:20 [facility] Disclaimer: The information contained in this section may have been updated after the patient was seen, as this information can be updated by other users. Medical History Chest pain Strain of right trapezius muscle Atypical chest pain Nausea vomiting and diarrhea Diarrhea Body aches Muscle strain of left wrist Abdominal pain Low back strain I recommend patient doing PT or visiting a chiroprator Pneumonia Depression Sinusitis Acute bronchitis Anxiety Asthma Hypertension Upper respiratory infection, viral Acute wrist pain Choking episode Viral syndrome Otitis media Viral upper respiratory infection Conjunctivitis Mucus plugging of bronchi Acute bronchitis Strep throat Surgical History History of section Social History Smoking Status: Never smoker alcohol intake: never current occupational status: other Travel in the last 8 weeks: None Have you lived/traveled outside US in past 30 days?: No Contact w/someone who lives/traveled outside US past 30 days?: No Exposure to someone with infectious disease in past 14 days?: No Do you have a fever (greater than 100.4 F or 38 C)?: No Have you tested positive for COVID-19: No Exposed to someone with COVID-19 in past 14 days?: No Do you have a sore throat?: No Do you have a cough?: No Do you have any weakness?: No Do you have any diarrhea?: Yes Are you experiencing any unusual bleeding?: No Do you have any muscle aches/pain?: No Do you have any abdominal pain?: No Are you experiencing loss of taste or smell?: No ROS Obtained: Yes All systems reviewed & no additional complaints except as documented Constitutional Constitutional: Reports chills and Reports fever(s) Eyes Eyes: Denies eye discharge ENT Ears, Nose, Mouth, and Throat: Reports as per HPI Cardiovascular Cardiovascular: Denies chest pain Respiratory Respiratory: Denies chest congestion and Reports cough Gastrointestinal Gastrointestingal: Reports nausea; Denies abdominal pain, constipation, cramping, diarrhea or vomiting Musculoskeletal Musculoskeletal: Denies arthralgias Integumentary/Breasts Skin/Breast: Denies rash Neurologic Neurologic: Denies paresthesias Physical Exam General General appearance: alert and in no apparent distress Head Head exam: atraumatic, normocephalic and normal inspection Eye Eye exam: Present normal appearance, PERRL and EOMI ENT ENT exam: Present normal exam, normal oropharynx, mucous membranes moist, TM's normal bilaterally and normal external ear exam Neck Neck exam: Present normal inspection, full ROM and trachea midline; Absent meningismus or lymphadenopathy Chest Chest inspection: Present normal inspection and symmetric chest wall rise; Absent tenderness Respiratory Respiratory exam: Present normal lung sounds bilaterally; Absent respiratory distress Cardiovascular Cardiovascular exam: Present regular rate and normal rhythm; Absent JVD Abdominal Exam Abdominal exam: Present soft and normal bowel sounds; Absent distention, tenderness or guarding Extremities Exam Extremities exam: Present normal inspection, full ROM and normal capillary refill; Absent calf tenderness Back Exam Back exam: Present normal inspection; Absent tenderness Neurological Exam Neurological exam: Present alert and oriented X3 Psychiatric Psychiatric exam: Present normal affect and normal mood Skin Skin exam: Present warm, dry, intact and normal color Lymphatic Lymphatic Findings: no adenopathy Medical Decision Making Medical Records Medical records reviewed: No I reviewed the patient's medical records. Screening: Per USPSTF and CDC recommendations, given the prevalence of disease in our region, it is our hospital?s policy to screen for HIV and viral Hepatitis for all patients aged 18 and over and those with ongoing risk factors. [place] Inquiry Pt receiving controlled substance: No Lab Data Lab results reviewed: Yes I reviewed the patient's lab results.
[2024-11-20 13:54] VITALS: BP 136/84; PULSE 110; RESP 18; TEMP 38.6; O2SAT 100; BMI 43.0
[2024-11-20] MEDS: ACETAMINOPHEN 325MG TAB 650 MG PO (13:59)
[2024-11-20 14:04] LABS: UTC Influenza A Antigen Positive (Negative); UTC Influenza B Antigen Negative (Negative)
[2024-11-20 14:23] VITALS: BP 136/84; PULSE 110; RESP 18; TEMP 38.3
== END 2024-11-20 14:41 | disposition home or self-care (01) ==
PROVIDERS: Emergency Provider Nurse Practitioner Family; PCP Family Medicine
DX: J10.1 Influenza due to other identified influenza virus with other respiratory manifestations (principal)
CPT/HCPCS: 87804; 99213; G0381

== ENCOUNTER 2024-11-26 10:20 | Outpatient (CLI) | payer OTHER, SELFPAY ==
[2024-11-26 19:01] LABS: Basophils % 0.4 % (0.1-2.0); Eosinophils # 0.1 K/mm3 (0.0-0.4); Eosinophils % 1.1 % (0.1-12.0); Hematocrit 42.8 % (37.0-47.0); Hemoglobin 14.8 g/dL (12.2-16.2); Mean Corpuscular HGB Conc 34.6 g/dL (31.8-35.4); Mean Corpuscular Hemoglobin 30.5 pg (27.0-31.2); Mean Corpuscular Volume 88.2 fl (81-99); Mean Platelet Volume 8.9 fl (7.4-10.4); Monocytes # 0.4 K/mm3 (0.1-1.0); Monocytes % 4.2 % (1.7-9.3); Neutrophils # 6.5 K/mm3 (1.8-7.8); Neutrophils % 72.1 % (37.0-80.0); Platelet Count 454 K/mm3 (142-424); Red Blood Count 4.85 M/mm3 (4.20-5.40); White Blood Count 9.1 K/mm3 (4.8-10.8)
[2024-11-26 19:43] LABS: Alanine Aminotransferase 28 U/L (12-78); Albumin Level 4.6 g/dl (3.5-5.0); Albumin/Globulin Ratio 1.9 (1.1-1.8); Alkaline Phosphatase 96 U/L (38-126); Aspartate Amino Transferase 21 U/L (14-36); Bilirubin,Total 0.2 mg/dl (0.2-1.3); Blood Urea Nitrogen 11 mg/dl (7-17); Calcium 9.4 mg/dl (8.4-10.2); Carbon Dioxide 28 mmol/L (22.0-30.0); Chloride 96 mmol/L (98-107); Chol/HDL Ratio 5.2 (1-3.5); Cholesterol 161 mg/dl (140-200); Estimated Glomerular Filt Rate 95 ml/min (>60); GFR (African American) 115 ML/MIN (>60); Globulin 2.4 g/dL (1.3-3.2); Glucose 89 mg/dl (74-100); HDL Cholesterol 31 mg/dl (40-60); Triglycerides 166 mg/dl (30-150); VLDL Cholesterol 33 mg/dL (0-40)
[2024-11-26 19:55] LABS: Direct LDL Cholesterol 92.57 mg/dL (100-129)
[2024-11-26 19:59] LABS: 25-OH Vitamin D, Total 39.6 ng/mL (30-100)
[2024-11-26 20:11] LABS: Hemoglobin A1C 4.9 % (4.0-6.0)
[2024-11-26 20:27] LABS: Anion Gap 15.2 mEq/L (5-15); Potassium 4.2 mmoL/L (3.5-5.1); Sodium 135 mmol/L (136-145)
== END 2024-11-26 23:59 | disposition home or self-care (01) ==
LOC: LAB.DROPOF 11-27 09:04
PROVIDERS: PCP Family Medicine; Visit Provider Family Medicine
DX: M79.641 Pain in right hand (principal); I10 Essential (primary) hypertension; E55.9 Vitamin D deficiency, unspecified; D50.9 Iron deficiency anemia, unspecified
CPT/HCPCS: 80053; 80061; 82306; 83036; 85025

== ENCOUNTER 2025-01-02 13:10 | Emergency (ER) | payer OTHER, SELFPAY ==
[2025-01-02 13:14] VITALS: BP 124/89; PULSE 84; RESP 18; TEMP 36.9; O2SAT 99; BMI 43.4
[2025-01-02 13:21] LABS: Coronavirus 19, PCR Not Detected (NotDetected); Influenza A, PCR Not Detected (NotDetected); Influenza B, PCR Not Detected (NotDetected)
--- NOTE | 2025-01-02 13:54 | HMH.EDGENADL ---
Discharge Plan Disposition Patient Disposition: Home, Self-Care Condition: Good Prescriptions Prescriptions: New ibuprofen 600 mg tablet 600 mg PO Q6H PRN (Reason: pain) Qty: 30 0RF acetaminophen 500 mg tablet 500 mg PO Q6H PRN (Reason: fever or pain) Qty: 30 0RF methocarbamol 500 mg tablet 500 mg PO Q6H PRN (Reason: Spasms) Qty: 30 0RF No Action loratadine [Loradamed] 10 mg tablet 10 mg PO DAILY Qty: 90 2RF Debrox 6.5 % drops 5 drp otic (ear) BID 4 Days Qty: 15 0RF azelastine 137 mcg (0.1 %) spray,non-aerosol 137 mcg intranasal BID Qty: 8.22 2RF Rx Instructions: administer into each nostril ergocalciferol (vitamin D2) [Vitamin D2] 1,250 mcg (50,000 unit) capsule 1,250 mcg PO QWEEK Qty: 4 2RF ferrous sulfate [FeroSul] 325 mg (65 mg iron) tablet See Rx Instructions .ROUTE .COMPLEX Qty: 90 2RF Dose Instruction: TAKE 1 TABLET BY MOUTH ONCE DAILY Rx Instructions: TAKE 1 TABLET BY MOUTH ONCE DAILY omeprazole 40 mg capsule,delayed release(DR/EC) 40 mg PO DAILY Qty: 90 1RF ropinirole 1 mg tablet See Rx Instructions .ROUTE .COMPLEX Qty: 90 0RF Dose Instruction: TAKE 1 TABLET BY MOUTH AT BEDTIME NIGHTLY; ADMINISTER 1-3 HOURS BEFORE BEDTIME Rx Instructions: TAKE 1 TABLET BY MOUTH AT BEDTIME NIGHTLY; ADMINISTER 1-3 HOURS BEFORE BEDTIME buspirone 5 mg tablet See Rx Instructions .ROUTE .COMPLEX Qty: 90 0RF Dose Instruction: TAKE 1 TABLET BY MOUTH ONCE DAILY Rx Instructions: TAKE 1 TABLET BY MOUTH ONCE DAILY atorvastatin 10 mg tablet See Rx Instructions .ROUTE .COMPLEX Qty: 90 2RF Dose Instruction: TAKE 1 TABLET BY MOUTH AT BEDTIME NIGHTLY Rx Instructions: TAKE 1 TABLET BY MOUTH AT BEDTIME NIGHTLY naproxen sodium 550 mg tablet 550 mg PO Q6HP PRN (Reason: Pain) lisinopril-hydrochlorothiazide 10-12.5 mg tablet 1 tab PO DAILY benzonatate 100 mg capsule 100 mg PO TIDP PRN (Reason: Cough) Qty: 30 0RF oseltamivir [Tamiflu] 75 mg capsule 75 mg PO BID 5 Days Qty: 10 0RF ondansetron 4 mg Tablet,Disintegrating 4 mg PO Q8H PRN (Reason: Nausea) Qty: 12 0RF Referrals Follow up/Referrals: Yesika Trejo APRN [Primary Care Provider] - See instructions Activity Restrictions/Add. Instructions Additional Instructions/Restrictions: It is likely that you have a viral illness causing your symptoms. Take Tylenol and ibuprofen every 6 hours as needed to help with symptoms. You can also take the muscle relaxer as prescribed. Follow-up with your primary care physician if symptoms do not improve. If you develop any new or worsening symptoms, or if you become concerned for your health for any reason, return to the emergency department for evaluation Clinical Impressions Clinical Impression: Rib pain, Shortness of breath Stand Alone Forms Stand Alone Forms: Work/School Release Instructions Patient Instructions: DI for Rib Contusion, DI for Shortness of Breath Print Language Print Language: Kinyarwanda Discharge ED Provider: Lorne Byrne Adult HPI General Chief complaint: PAIN Stated complaint: radiating rib pain Time Seen by Provider: 01/02/25 13:45 Mode of Arrival: Ambulatory Source of Information: Patient Description of Symptoms (Recalled from ER Triage Doc. by RN): Pt presents for evaluation of bilateral rib pain and cough x 2 weeks History of Present Illness HPI narrative: Patient is a 34-year-old female with a history of hypertension who presents to the emergency department for complaints of pain in her ribs and back that is sharp in nature sometimes worsened with deep breathing. She states that the pain has been present for the past 2 days. She reports a mild cough as well. She denies any fever, vomiting, abdominal pain, or diarrhea. She does report some mild chest discomfort and shortness of breath with the symptoms as well. Related Data Home Medications ?Medication ?Instructions ?Recorded ?Confirmed lisinopril 10 1 tab PO DAILY 04/01/24 11/29/24 mg-hydrochlorothiazide 12.5 mg tablet naproxen sodium 550 mg tablet 550 mg PO Q6HP PRN Pain 04/01/24 11/29/24 Previous Rx's ?Medication ?Instructions ?Recorded loratadine 10 mg tablet (Loradamed) 10 mg PO DAILY #90 tabs 06/21/24 ergocalciferol (vitamin D2) 1,250 1,250 mcg PO QWEEK #4 caps 06/22/24 mcg (50,000 unit) capsule (Vitamin D2) azelastine 137 mcg (0.1 %) nasal 137 mcg (0.137 mL) intranasal BID 09/19/24 spray #8.22 mL carbamide peroxide 6.5 % ear drops 5 drp otic (ear) BID 4 days #15 mL 09/19/24 (Debrox) ferrous sulfate 325 mg (65 mg See Rx Instructions .Route 09/21/24 iron) tablet (FeroSul) .COMPLEX #90 tabs benzonatate 100 mg capsule 100 mg PO TIDP PRN Cough #30 caps 11/20/24 ondansetron 4 mg disintegrating 4 mg PO Q8H PRN Nausea #12 tabs 11/20/24 tablet oseltamivir 75 mg capsule (Tamiflu) 75 mg PO BID 5 days #10 caps 11/20/24 omeprazole 40 mg capsule,delayed 40 mg PO DAILY #90 caps 11/26/24 release atorvastatin 10 mg tablet See Rx Instructions .Route 01/01/25 .COMPLEX #90 ea buspirone 5 mg tablet See Rx Instructions .Route 01/01/25 .COMPLEX #90 tabs ropinirole 1 mg tablet See Rx Instructions .Route 01/01/25 .COMPLEX #90 tabs acetaminophen 500 mg tablet 500 mg PO Q6H PRN fever or pain 01/02/25 #30 tabs ibuprofen 600 mg tablet 600 mg PO Q6H PRN pain #30 tabs 01/02/25 methocarbamol 500 mg tablet 500 mg PO Q6H PRN Spasms #30 tabs 01/02/25 Allergies Allergy/AdvReac Type Severity Reaction Status Date / Time amoxicillin (AMOXICILLIN) Allergy Unknown Verified 11/29/24 11:15 Penicillins (PENICILLINS) Allergy Unknown Verified 11/29/24 11:15 [facility] Disclaimer: The information contained in this section may have been updated after the patient was seen, as this information can be updated by other users. Medical History Chest pain Strain of right trapezius muscle Atypical chest pain Nausea vomiting and diarrhea Diarrhea Body aches Muscle strain of left wrist Abdominal pain Low back strain I recommend patient doing PT or visiting a chiroprator Pneumonia Depression Sinusitis Acute bronchitis Anxiety Asthma Hypertension Upper respiratory infection, viral Acute wrist pain Choking episode Viral syndrome Otitis media Viral upper respiratory infection Conjunctivitis Mucus plugging of bronchi Acute bronchitis Strep throat Surgical History History of section Social History Smoking Status: Never smoker alcohol intake: never current occupational status: other Travel in the last 8 weeks: None Have you lived/traveled outside US in past 30 days?: No Contact w/someone who lives/traveled outside US past 30 days?: No Exposure to someone with infectious disease in past 14 days?: No Do you have a fever (greater than 100.4 F or 38 C)?: No Have you tested positive for COVID-19: No Exposed to someone with COVID-19 in past 14 days?: No Do you have a sore throat?: No Do you have a cough?: No Do you have any weakness?: No Do you have any diarrhea?: No Are you experiencing any unusual bleeding?: No Do you have any muscle aches/pain?: No Do you have any abdominal pain?: No Are you experiencing loss of taste or smell?: No Other Medical History Have you received the Flu Vaccine for this season: No Have you received the Pneumonia Vaccine: No ROS Obtained: Yes Systems reviewed as appropriate & no additional complaints except as documented Physical Exam General General appearance: alert and in no apparent distress Head Head exam: atraumatic Eye Eye exam: Present normal appearance ENT ENT exam: Present normal external ear exam Neck Neck exam: Present full ROM Chest Chest inspection: Present symmetric chest wall rise Respiratory Respiratory exam: Present normal lung sounds bilaterally; Absent respiratory distress, wheezes or stridor Cardiovascular Cardiovascular exam: Present regular rate and normal rhythm Abdominal Exam Abdominal exam: Present soft; Absent tenderness or guarding Extremities Exam Extremities exam: Present normal inspection Back Exam Back exam: Present normal inspection; Absent CVA tenderness (R), CVA tenderness (L) or paraspinal tenderness Neurological Exam Neurological exam: Present alert and oriented X3 Psychiatric Psychiatric exam: Present normal affect Skin Skin exam: Present warm and dry; Absent rash Medical Decision Making Medical Records Screening: Per USPSTF and CDC recommendations, given the prevalence of disease in our region, it is our hospital?s policy to screen for HIV and viral Hepatitis for all patients aged 18 and over and those with ongoing risk factors. [place] Inquiry Pt receiving controlled substance: No Vital Signs: 01/02/25 13:14 01/02/25 15:21 Temperature 98.4 F 98.4 F Temperature Source Oral Oral Pulse Rate 58 L Pulse Rate [Right] 84 Respiratory Rate 18 16 Blood Pressure 118/79 Blood Pressure [Right Arm] 124/89 Blood Pressure Mean [Right Arm] 100 Blood Pressure Source Automatic Cuff Blood Pressure Source [Right Arm] Manual Cuff/ Palpation Blood Pressure Position [Right Arm] Sitting 02 Sat by Pulse Oximetry 99 Oxygen Delivery Method Room Air Room Air Lab Data Lab Results 01/02/25 13:14: SARS-CoV-2 (PCR) Not detected, Influenza A Untype (PCR) Not detected, Influenza Type B (PCR) Not detected 01/02/25 14:21: WBC 8.6, RBC 4.78, Hgb 14.4, Hct 41.2, MCV 86.2, MCH 30.1, MCHC 35.0, RDW 11.8, Plt Count 435 H, MPV 8.8, Neut % (Auto) 72.7, Lymph % (Auto) 20.6, [place] % (Auto) 5.4, Eos % (Auto) 0.9, Baso % (Auto) 0.2, Neut # (Auto) 6.2, Lymph # (Auto) 1.8, [place] # (Auto) 0.5, Eos # (Auto) 0.1, Baso # (Auto) 0.0, D-Dimer 0.46, Sodium 136, Potassium 3.6, Chloride 104, Carbon Dioxide 26, Anion Gap 9.6, BUN 19 H, Creatinine 0.70, Estimated Creat Clear 85, Estimated GFR 95, Est GFR ( Amer) 115, Glucose 88, Calcium 10.4 H, Total Bilirubin 0.5, AST 27, ALT 15, Alkaline Phosphatase 70, Troponin I < 0.01, NT-Pro-B Natriuret Pep < 20.0, Total Protein 7.3, Albumin 4.5, Globulin 2.8, Albumin/Globulin Ratio 1.6, HCV Ab LORENZO w/Rflx PCR Qn Negative, HIV Ag/Ab Combo Qual Negative 01/02/25 14:21 01/02/25 14:21 Orders (Tests/Meds): ED MEDICATIONS Discontinued Medications Generic Name Dose Route Start Last Admin Trade Name Freq PRN Reason Stop Dose Admin Ketorolac Tromethamine 15 mg 01/02/25 14:03 01/02/25 14:32 Ketorolac 30mg/Ml Vial IV 01/02/25 14:04 15 mg ONCE ONE Administration ORDERS Category Date Time Status CXR 2 view (NOT portable) [XR chest 2V] Stat Exams 01/02/25 14:02 Completed BNP [NT Pro Brain Natriuretic Pep.] Stat Lab 01/02/25 14:21 Completed CBC w/Auto Diff [Complete Blood Count Auto Diff] Stat Lab 01/02/25 14:21 Completed CMP [Comprehensive Metabolic Panel] Stat Lab 01/02/25 14:21 Completed D-Dimer Stat Lab 01/02/25 14:21 Completed HIV Combo Stat Lab 01/02/25 14:21 Completed Hepatitis C Ab Qual. W/ RFX Stat Lab 01/02/25 14:21 Completed Rapid PCR Covid and Flu A/B Stat Lab 01/02/25 13:14 Completed Trop I [Troponin I] Stat Lab 01/02/25 14:21 Completed ECG Data Tracing #1: I reviewed this ECG and interpreted as documented below: Normal sinus rhythm. Ventricular rate of 61 bpm. QTc normal at 406. VA interval normal at 169 Medical Decision Narrative: Patient is a 34-year-old female with a history of hypertension who presents to the emergency department for complaints of pain in her ribs and back that is sharp in nature sometimes worsened with deep breathing. She states that the pain has been present for the past 2 days. She reports a mild cough as well. She denies any fever, vomiting, abdominal pain, or diarrhea. She does report some mild chest discomfort and shortness of breath with the symptoms as well. On arrival, patient is normotensive, heart rate within normal limits, breathing comfortably on room air with oxygen saturation at 99% SpO2. Afebrile. Physical exam, stated above, revealed an overall well-appearing female in no distress. She is nontoxic-appearing. Cardiopulmonary exam is unremarkable. She does not have any rashes and no significant tenderness along the posterior or anterior rib cage. Differential diagnosis includes, but is not limited to: Pneumonia, ACS, pulmonary embolism, pleurisy, costochondritis, pericarditis, among others. Workup in the emergency department included: 2 view chest x-ray, EKG, CBC, D-dimer, CMP, troponin, BNP, rapid COVID/flu test. Patient was treated with 15 mg of IV Toradol. EKG unremarkable as stated above. Chest x-ray interpreted by me personally prior to official radiology read. No focal consolidations, no pneumothorax, no pulmonary effusion, no widened mediastinum, no enlarged cardiac silhouette. See radiology report for additional details. Laboratory studies with no leukocytosis, no anemia, D-dimer normal at 0.46, no significant electrolyte derangements except for mildly elevated calcium of 10.4, liver enzymes within normal limits, initial 20 less than 0.01, BNP normal at less than 20, negative COVID/flu testing. On reassessment, patient's symptoms had improved. Is felt that her symptomatology is likely related to a viral respiratory illness/pleurisy. Will instruct patient to take Tylenol and ibuprofen at home to help with symptoms. Could be related to a muscle strain as well and will give Robaxin to help with symptoms. Patient instructed to follow-up with her primary care physician. Return precautions were given. All questions were answered. She demonstrated understanding and was in agreement this plan. She was then discharged from the emergency department in stable condition. Critical Care Critical Care Time Critical Care Time: No
--- NOTE | 2025-01-02 13:56 | PC.NURSE ---
DR BRICEÑO AT BEDSIDE
--- NOTE | 2025-01-02 14:02 | XR_ITS ---
FINAL REPORT CLINICAL HISTORY: Shortness of breath, rib pain COMPARISON: 04/01/2024 FINDINGS: 2 views of the chest were obtained . The heart is normal in size. The mediastinum is within normal limits. The lungs are clear. There is no pneumothorax. Osseous structures are unremarkable. IMPRESSION: No acute cardiopulmonary process. Reviewed, Interpreted and Dictated by Nuno Weston MD Transcribed by Emily Mosquera Authenticated and [facility]
[2025-01-02 14:30] LABS: Basophils % 0.2 % (0.1-2.0); Eosinophils # 0.1 K/mm3 (0.0-0.4); Eosinophils % 0.9 % (0.1-12.0); Hematocrit 41.2 % (37.0-47.0); Hemoglobin 14.4 g/dL (12.2-16.2); Lymphocytes # 1.8 K/mm3 (0.7-4.5); Lymphocytes % 20.6 % (10-50); Mean Corpuscular Hemoglobin 30.1 pg (27.0-31.2); Mean Corpuscular Volume 86.2 fl (81-99); Mean Platelet Volume 8.8 fl (7.4-10.4); Monocytes # 0.5 K/mm3 (0.1-1.0); Monocytes % 5.4 % (1.7-9.3); Neutrophils # 6.2 K/mm3 (1.8-7.8); Neutrophils % 72.7 % (37.0-80.0); Platelet Count 435 K/mm3 (142-424); Red Blood Count 4.78 M/mm3 (4.20-5.40); Red Cell Distribution Width 11.8 % (11.5-17.5); White Blood Count 8.6 K/mm3 (4.8-10.8)
[2025-01-02] MEDS: KETOROLAC 30MG/ML VIAL 15 MG IV (14:32)
[2025-01-02 14:40] LABS: Alanine Aminotransferase 15 U/L (12-78); Albumin Level 4.5 g/dl (3.5-5.0); Albumin/Globulin Ratio 1.6 (1.1-1.8); Alkaline Phosphatase 70 U/L (38-126); Anion Gap 9.6 mEq/L (5-15); Aspartate Amino Transferase 27 U/L (14-36); Bilirubin,Total 0.5 mg/dl (0.2-1.3); Blood Urea Nitrogen 19 mg/dl (7-17); Calcium 10.4 mg/dl (8.4-10.2); Carbon Dioxide 26 mmol/L (22.0-30.0); Chloride 104 mmol/L (98-107); Creatinine Clearance Estimated 85 mL/min (50-200); Estimated Glomerular Filt Rate 95 ml/min (>60); GFR (African American) 115 ML/MIN (>60); Globulin 2.8 g/dL (1.3-3.2); Glucose 88 mg/dl (74-100); Potassium 3.6 mmoL/L (3.5-5.1); Sodium 136 mmol/L (136-145); Total Protein,Serum 7.3 g/dl (6.3-8.2)
[2025-01-02 14:44] LABS: D-Dimer 0.46 ug/mL (0.0-0.5)
[2025-01-02 14:53] LABS: NT Pro Brain Natriuretic Pep. < 20.0 pg/mL (0-125); Troponin I < 0.01 ng/ml (0.00-0.034)
--- NOTE | 2025-01-02 15:10 | ECG_ITS ---
APPROVED REPORT Exam: Resting ECG HR:61 bpm ECG Measurements Heart Rate 61 AXES IA 169 P 30 QRSd 105 QRS -3 QT 403 T 12 QTc 406 Conclusion SINUS RHYTHM WITH MARKED SINUS ARRHYTHMIA LOW QRS VOLTAGE IN PRECORDIAL LEADS [QRS DEFLECTION < 1.0 mV IN CHEST LEADS] POSSIBLE RIGHT VENTRICULAR CONDUCTION DELAY [RSR (QR) IN V1/V2] POSSIBLE ANTERIOR MYOCARDIAL INFARCTION , OF INDETERMINATE AGE [30 ms Q WAVE IN V3/V4, OR R < 0.2 mV IN V4] ABNORMAL ECG UNCONFIRMED REPORT Normal sinus rhythm. No ST elevation or depression. Electronically signed by : CAROLYN BRICEÑO, 01/02/2025 16:28:47
[2025-01-02 15:21] VITALS: BP 118/79; PULSE 58; RESP 16; TEMP 36.9; O2SAT 98
[2025-01-02 15:45] LABS: HIV Combo NEGATIVE (Negative)
[2025-01-02 15:48] LABS: Hepatitis C Ab Qual. W/ RFX NEGATIVE (Negative)
== END 2025-01-02 15:24 | disposition home or self-care (01) ==
PROVIDERS: Emergency Provider Student in an Organized Health Care Education/Training Program; PCP Family Medicine
DX: R07.81 Pleurodynia (principal); R07.89 Other chest pain; R05.9 Cough, unspecified; R06.02 Shortness of breath
CPT/HCPCS: 71046; 80053; 83880; 84484; 85025; 85378; 86803; 87389; 87636; 93005; 96374; 99284; J1885

== ENCOUNTER 2025-05-28 09:59 | Outpatient (CLI) | payer OTHER, SELFPAY ==
--- NOTE | 2025-05-28 10:00 | XR_ITS ---
FINAL REPORT TECHNIQUE: Right hand 4 views CLINICAL HISTORY: right hand pain COMPARISON: None FINDINGS: AP, lateral and oblique views of the right hand were obtained. There is no prior exam for comparison. There is no acute fracture or dislocation. The joint spaces are preserved. The soft tissues are normal. IMPRESSION: No acute osseous abnormality of the right hand. Reviewed, Interpreted and Dictated by Chinyere Metcalf MD Transcribed by Yudelka Larios Authenticated and [facility]
== END 2025-05-28 23:59 | disposition home or self-care (01) ==
LOC: RAD 10:00
PROVIDERS: Visit Provider Physician Assistant
DX: M79.641 Pain in right hand (principal)
CPT/HCPCS: 73130

== ENCOUNTER 2025-08-24 16:13 | Emergency (ER) | payer OTHER, SELFPAY ==
[2025-08-24 16:27] VITALS: BP 117/86; PULSE 97; RESP 14; TEMP 36.6; O2SAT 98; BMI 42.7
--- NOTE | 2025-08-24 16:29 | PC.NURSE ---
Pt wants to defer blood work until she is able to be brought back to a regular room. Pt choose to wait in the lobby vs being brought to the chair room.
--- NOTE | 2025-08-24 16:30 | ECG_ITS ---
APPROVED REPORT Exam: Resting ECG HR:91 bpm ECG Measurements Heart Rate 91 AXES MA 167 P 47 QRSd 120 QRS 12 QT 341 T 30 QTc 390 Conclusion SINUS RHYTHM MODERATE INTRAVENTRICULAR CONDUCTION DELAY [110+ ms QRS DURATION] BORDERLINE ECG UNCONFIRMED REPORT Electronically signed by : Lev Mack, 08/24/2025 23:12:26
--- NOTE | 2025-08-24 17:56 | XR_ITS ---
PROCEDURE INFORMATION: Exam: XR Chest Exam date and time: 08/24/2025 6:58 PM Age: 35 years old Clinical indication: Shortness of breath; Additional info: Cp SOA TECHNIQUE: Imaging protocol: Radiologic exam of the chest. Views: 1 view. COMPARISON: CR XR CHEST 2V 01/02/2025 2:14 PM FINDINGS: Lungs: Mild central peribronchial interstitial opacities are similar to previous examinations Pleural spaces: Unremarkable. No pleural effusion. No pneumothorax. Heart/Mediastinum: Borderline cardiomegaly Bones/joints: Unremarkable. IMPRESSION: 1. Borderline cardiomegaly 2. Central airways disease or infectious bronchitis. Less likely pulmonary edema or chronic lung disease.
[2025-08-24 18:00] VITALS: BP 132/89; PULSE 77; O2SAT 97
--- NOTE | 2025-08-24 18:30 | ED_ITS ---
<Statement entered by Zenaida Mack MD - 08/24/25 22:55> I was consulted by the PAL, and we discussed the complexity of the problems being addressed. I approved the treatment and management plan for this patient's care in the emergency department, thus performing a substantive portion of the medical decision making. Zenaida Mack MD, ACOSTA, FACEP Discharge Plan Disposition Patient Disposition: Home, Self-Care Condition: Good Prescriptions Prescriptions: New potassium chloride [Klor-Con] 20 mEq packet 20 meq PO BID 3 Days Qty: 6 0RF methocarbamol 500 mg tablet 500 mg PO HS PRN (Reason: pain) 3 Days Qty: 3 0RF No Action cetirizine 10 mg tablet 10 mg PO atorvastatin 10 mg tablet See Rx Instructions .ROUTE .COMPLEX Qty: 90 2RF Dose Instruction: TAKE 1 TABLET BY MOUTH AT BEDTIME NIGHTLY Rx Instructions: TAKE 1 TABLET BY MOUTH AT BEDTIME NIGHTLY ferrous sulfate [FeroSul] 325 mg (65 mg iron) tablet See Rx Instructions .ROUTE .COMPLEX Qty: 90 2RF Dose Instruction: TAKE 1 TABLET BY MOUTH ONCE DAILY Rx Instructions: TAKE 1 TABLET BY MOUTH ONCE DAILY omeprazole 40 mg capsule,delayed release(DR/EC) 40 mg PO DAILY Qty: 90 1RF methylprednisolone [Medrol (Gulshan)] 4 mg tablets,dose pack See Rx Instructions PO PER PKG DIR Qty: 21 0RF Rx Instructions: PO PER PKG DIR diclofenac sodium [Voltaren Arthritis Pain] 1 % gel 2 g topical QID Qty: 100 3RF Rx Instructions: apply to single elbow, wrist or hand; for hand includes palm/fingers/back of hand lisinopril-hydrochlorothiazide 10-12.5 mg tablet See Rx Instructions .ROUTE .COMPLEX Qty: 90 2RF Dose Instruction: TAKE 1 TABLET BY MOUTH ONCE DAILY Rx Instructions: TAKE 1 TABLET BY MOUTH ONCE DAILY ropinirole 1 mg tablet See Rx Instructions .ROUTE .COMPLEX Qty: 90 1RF Dose Instruction: TAKE 1 TABLET BY MOUTH AT BEDTIME NIGHTLY; ADMINISTER 1-3 HOURS BEFORE BEDTIME Rx Instructions: TAKE 1 TABLET BY MOUTH AT BEDTIME NIGHTLY; ADMINISTER 1-3 HOURS BEFORE BEDTIME buspirone 5 mg tablet See Rx Instructions .ROUTE .COMPLEX Qty: 90 1RF Dose Instruction: TAKE 1 TABLET BY MOUTH ONCE DAILY Rx Instructions: TAKE 1 TABLET BY MOUTH ONCE DAILY ergocalciferol (vitamin D2) [Vitamin D2] 1,250 mcg (50,000 unit) capsule See Rx Instructions .ROUTE .COMPLEX Qty: 90 1RF Dose Instruction: TAKE 1 CAPSULE BY MOUTH ONCE WEEKLY Rx Instructions: TAKE 1 CAPSULE BY MOUTH ONCE WEEKLY diclofenac sodium 75 mg tablet,delayed release (DR/EC) See Rx Instructions .ROUTE .COMPLEX Qty: 60 0RF Dose Instruction: TAKE 1 TABLET BY MOUTH TWICE DAILY NEEDED FOR PAIN Rx Instructions: TAKE 1 TABLET BY MOUTH TWICE DAILY NEEDED FOR PAIN methocarbamol 500 mg tablet 500 mg PO Q6H PRN (Reason: Spasms) Qty: 30 0RF Referrals Follow up/Referrals: Yeiska Trejo APRN [Primary Care Provider, Family Practice] - See instructions Activity Restrictions/Add. Instructions Additional Instructions/Restrictions: Please take Tylenol, Motrin and the Robaxin that we have prescribed. Please follow-up with your PCP within 2 to 3 days. Please return to the ED for any worsening of condition. Clinical Impressions Clinical Impression: Chest wall pain Instructions Patient Instructions: DI for Chest Pain Print Language Print Language: Syrian Discharge ED Provider: Zenaida Mack General Adult HPI General Chief complaint: PAIN Stated complaint: SOA,back and ribs hurt Time Seen by Provider: 08/24/25 16:21 Mode of Arrival: Ambulatory Source of Information: Patient Description of Symptoms (Recalled from ER Triage Doc. by RN): pt c/o shoulder and back pain that wraps around her back and to her sternum ongoing since yesterday. pt states she has bent over frequently hand picking walnuts off the ground. pt states the pain is constant and her back feels warm. pt states her pain is 8/10. pt states it felt similar when she had shingles a few years ago. History of Present Illness HPI narrative: patient is a 35-year-old female PMHx history of iron deficiency anemia, depression, shingles, GERD who presents to the ED with complaints of chest and back pain x 2 days. Patient states that yesterday she was helping move her autistic son when she may have strained her muscles in the chest and back. Related Data Home Medications ?Medication ?Instructions ?Recorded ?Confirmed cetirizine 10 mg tablet 10 mg PO 05/27/25 06/24/25 Previous Rx's ?Medication ?Instructions ?Recorded methocarbamol 500 mg tablet 500 mg PO Q6H PRN Spasms # 30 tabs 01/02/25 lisinopril 10 See Rx Instructions .Route 0 01/28/25 mg-hydrochlorothiazide 12.5 mg .COMPLEX #90 tabs tablet buspirone 5 mg tablet See Rx Instructions .Route 0 04/22/25 .COMPLEX #90 tabs ropinirole 1 mg tablet See Rx Instructions .Route 0 04/22/25 .COMPLEX #90 tabs atorvastatin 10 mg tablet See Rx Instructions .Route 0 05/27/25 .COMPLEX #90 ea ferrous sulfate 325 mg (65 mg See Rx Instructions .Rou te 05/27/25 iron) tablet (FeroSul) .COMPLEX #90 tabs methylprednisolone 4 mg tablets in See Rx Instructions PO PER PKG DIR 05/27/25 a dose pack (Medrol (Gulshan)) #21 tabs omeprazole 40 mg capsule,delayed 40 mg PO DAILY #90 ca ps 05/27/25 release diclofenac sodium 1 % topical gel 2 g topical QID #100 grams 06/24/25 (Voltaren Arthritis Pain) ergocalciferol (vitamin D2) 1,250 See Rx Instructions .Route 06/24/25 mcg (50,000 unit) capsule (Vitamin .COMPLEX #90 caps D2) diclofenac sodium 75 mg See Rx Instructions .Route 1 tablet,delayed release .COMPLEX #60 tabs methocarbamol 500 mg tablet 500 mg PO HS PRN pain 3 da ys #3 08/24/25 tabs potassium chloride 20 mEq oral 20 meq PO BID 3 days #6 packets 08/24/25 packet (Klor-Con) Allergies Allergy/AdvReac Type Severity Reaction Status Date / Time amoxicillin (AMOXICILLIN) Allergy Unknown Rash Verified 08/24/25 16:36 Penicillins (PENICILLINS) Allergy Unknown Rash Verified 08/24/25 16:36 [facility] Disclaimer: The information contained in this section may have been updated after the patient was seen, as this information can be updated by other users. Medical History Eustachian tube dysfunction Swelling Hand pain, right Ganglion cyst of dorsum of right wrist Influenza A Rib pain Shortness of breath URI (upper respiratory infection) Chest pain Strain of right trapezius muscle Atypical chest pain Nausea vomiting and diarrhea Diarrhea Body aches Muscle strain of left wrist Abdominal pain Low back strain I recommend patient doing PT or visiting a chiroprator Pneumonia Depression Sinusitis Acute bronchitis Anxiety Asthma Hypertension Upper respiratory infection, viral Acute wrist pain Choking episode Viral syndrome Otitis media Viral upper respiratory infection Conjunctivitis Mucus plugging of bronchi Acute bronchitis Strep throat Surgical History History of section Social History Smoking Status: Never smoker alcohol intake: never current occupational status: other Travel in the last 8 weeks?: None Have you lived/traveled outside [place] in past 30 days?: No Contact w/someone who lives/traveled outside US past 30 days?: No Exposure to someone with infectious disease in past 14 days?: No Do you have a fever (greater than 100.4 F or 38 C)?: No Have you tested positive for COVID-19?: No Exposed to someone with COVID-19 in past 14 days?: No Do you have a sore throat?: No Do you have a cough?: No Do you have any weakness?: No Do you have any diarrhea?: No Are you experiencing any unusual bleeding?: No Do you have any muscle aches/pain?: No Do you have any abdominal pain?: No Are you experiencing loss of taste or smell?: No Other Medical History Have you received the Flu Vaccine for this season: No Have you received the Pneumonia Vaccine: No ROS Obtained: Yes Systems reviewed as appropriate & no additional complaints except as documented Physical Exam General General appearance: alert Eye Eye exam: Present PERRL Respiratory Respiratory exam: Present normal lung sounds bilaterally Cardiovascular Cardiovascular exam: Present regular rate and other (Chest wall tenderness ) Extremities Exam Extremities exam: Present full ROM Back Exam Back exam: Present other (Trapezius muscle tenderness) Neurological Exam Neurological exam: Present alert and oriented X3 Medical Decision Making Medical Records Screening: Per USPSTF and CDC recommendations, given the prevalence of disease in our region, it is our hospital?s policy to screen for HIV and viral Hepatitis for all patients aged 18 and over and those with ongoing risk factors. [place] Inquiry Pt receiving controlled substance: No Vital Signs: 08/24/25 16:27 08/24/25 18:00 08/24/25 19:00 Temperature 98 F Temperature Source Oral Pulse Rate 77 72 Pulse Rate [Left] 97 H Respiratory Rate 14 16 Blood Pressure 132/89 114/82 Blood Pressure [Right Arm] 117/86 Blood Pressure Mean [Right Arm] 96 Blood Pressure Source Blood Pressure Source [Right Arm] Automatic Cuff Blood Pressure Position Blood Pressure Position [Right Arm] Sitting 02 Sat by Pulse Oximetry 98 97 99 Oxygen Delivery Method Room Air Room Air 08/24/25 20:03 Temperature 97.9 F Temperature Source Oral Pulse Rate 72 Pulse Rate [Left] Respiratory Rate 16 Blood Pressure 122/74 Blood Pressure [Right Arm] Blood Pressure Mean [Right Arm] Blood Pressure Source Automatic Cuff Blood Pressure Source [Right Arm] Blood Pressure Position Supine Blood Pressure Position [Right Arm] 02 Sat by Pulse Oximetry Oxygen Delivery Method Room Air Lab Data Lab Results 08/24/25 18:40: WBC 8.8, RBC 4.59, Hgb 13.9, Hct 39.3, MCV 85.6, MCH 30.3, MCHC 35.4, RDW 12.1, Plt Count 407, MPV 8.5, Neut % (Auto) 61.8, Lymph % (Auto) 31.5, [place] % (Auto) 5.0, Eos % (Auto) 1.1, Baso % (Auto) 0.5, Neut # (Auto) 5.4, Lymph # (Auto) 2.8, [place] # (Auto) 0.4, Eos # (Auto) 0.1, Baso # (Auto) 0.0, Sodium 133 L, Potassium 3.2 L, Chloride 97 L, Carbon Dioxide 28, Anion Gap 11.2, BUN 11, Creatinine 0.80, Estimated Creat Clear 77, Estimated GFR 81, Est GFR ( Amer) 98, Glucose 92, Calcium 9.4, Total Bilirubin 0.3, AST 20, ALT 24, Alkaline Phosphatase 75, Troponin I < 0.01, Total Protein 7.7, Albumin 4.4, Globulin 3.3 H, Albumin/Globulin Ratio 1.3 08/24/25 18:40 08/24/25 18:40 Orders (Tests/Meds): ED MEDICATIONS Discontinued Medications Generic Name Dose Route Start Last Admin Trade Name Freq PRN Reason Stop Dose Admin Ketorolac Tromethamine 15 mg 08/24/25 17:56 08/24/25 18:33 Ketorolac 15mg/Ml Vial IV 08/24/25 17:57 15 mg ONCE ONE Administration Potassium Chloride 20 meq 08/24/25 19:31 08/24/25 19:37 Potassium Chloride 20meq Tab PO 08/24/25 19:32 20 meq ONCE ONE Administration ORDERS Category Date Time Status CXR --portable [XR chest portable] Stat Exams 08/24/25 17:56 Taken CBC w/Auto Diff [Complete Blood Count Auto Diff] Stat Lab 08/24/25 18:40 Completed CMP [Comprehensive Metabolic Panel] Stat Lab 08/24/25 18:40 Completed Trop I [Troponin I] Stat Lab 08/24/25 18:40 Completed Medical Decision Narrative: In summary, patient is a 35-year-old female PMHx history of iron deficiency anemia, depression, shingles, GERD who presents to the ED with complaints of chest and back pain x 2 days. Patient states that yesterday she was helping move her autistic son when she may have strained her muscles in the chest and back. Patient states she woke up today and feels very sore. She denies any pain when taking a deep breath. Denies fever, chills, headache, shortness of breath, abdominal pain, nausea, vomiting. Upon initial presentation, patient is alert and oriented, hemodynamically stable. She has chest wall tenderness, trapezius muscle tenderness upon palpation. Differential diagnosis include ACS, pneumonia, musculoskeletal pain, among others. Discussed with patient we will proceed with EKG, labs and chest x-ray. CBC unremarkable for any leukocytosis, stable H&H. CMP remarkable for potassium of 3.2, will orally replace. Troponin < 0.01. Your chest x-ray was unremarkable. Discussed with patient that her workup was unremarkable. Please take Tylenol, Motrin and the Robaxin that we have prescribed. Please follow-up with your PCP within 2 to 3 days. Please return to the ED for any worsening of condition. Critical Care Critical Care Time Critical Care Time: No
[2025-08-24] MEDS: KETOROLAC 15MG/ML VIAL 15 MG IV (18:33)
[2025-08-24 18:52] LABS: Hematocrit 39.3 % (37.0-47.0); Hemoglobin 13.9 g/dL (12.2-16.2); Immature Granulocytes % 0.1 %; Mean Corpuscular HGB Conc 35.4 g/dL (31.8-35.4); Mean Corpuscular Hemoglobin 30.3 pg (27.0-31.2); Mean Corpuscular Volume 85.6 fl (81-99); Nucleated Red Blood Cells % 0 %; Platelet Count 407 K/mm3 (142-424); Red Blood Count 4.59 M/mm3 (4.20-5.40); Red Cell Distribution Width-SD 37.3 fL; White Blood Count 8.8 K/mm3 (4.8-10.8)
[2025-08-24 18:56] LABS: Alanine Aminotransferase 24 U/L (12-78); Albumin Level 4.4 g/dl (3.5-5.0); Albumin/Globulin Ratio 1.3 (1.1-1.8); Alkaline Phosphatase 75 U/L (38-126); Anion Gap 11.2 mEq/L (5-15); Aspartate Amino Transferase 20 U/L (14-36); Bilirubin,Total 0.3 mg/dl (0.2-1.3); Blood Urea Nitrogen 11 mg/dl (7-17); Calcium 9.4 mg/dl (8.4-10.2); Carbon Dioxide 28 mmol/L (22.0-30.0); Chloride 97 mmol/L (98-107); Creatinine Clearance Estimated 77 mL/min (50-200); Creatinine,Serum 0.80 mg/dl (0.52-1.04); Estimated Glomerular Filt Rate 81 ml/min (>60); GFR (African American) 98 ML/MIN (>60); Globulin 3.3 g/dL (1.3-3.2); Glucose 92 mg/dl (74-100); Potassium 3.2 mmoL/L (3.5-5.1); Sodium 133 mmol/L (136-145); Total Protein,Serum 7.7 g/dl (6.3-8.2)
[2025-08-24 19:00] VITALS: BP 114/82; PULSE 72; RESP 16; O2SAT 99
[2025-08-24 19:10] LABS: Troponin I < 0.01 ng/ml (0.00-0.034)
[2025-08-24] MEDS: POTASSIUM CHLORIDE 20MEQ TAB 20 MEQ PO (19:37)
[2025-08-24 20:03] VITALS: BP 122/74; PULSE 72; RESP 16; TEMP 36.6; O2SAT 98
== END 2025-08-24 20:06 | disposition home or self-care (01) ==
PROVIDERS: Nurse Practitioner; Emergency Provider Student in an Organized Health Care Education/Training Program; PCP Family Medicine
DX: R07.89 Other chest pain (principal); M54.6 Pain in thoracic spine; E87.1 Hypo-osmolality and hyponatremia; E87.6 Hypokalemia
CPT/HCPCS: 71045; 80053; 84484; 85025; 93005; 96374; 99284; J1885

== ENCOUNTER 2025-09-01 11:58 | Emergency (ER) | payer OTHER, SELFPAY ==
--- OUTSIDE RECORDS SUMMARY | 2025-08-30 21:44 | XMS_ITS | Continuity of Care Document ---
Author Organization [facility] [employer] Phone Care Team Providers Care Campus Receptionist Name Role Phone GUSTAVO, TASH E Admitting Unavailable GUSTAVO, TASH E Primary Attending Unavailable GUSTAVO, TASH E Unavailable Unavailable EDUARDO MASTERS Primary Care ALLERGIES AND ADVERSE REACTIONS ALLERGIES AND ADVERSE REACTIONS Code System Allergy Substance Adverse Reaction Date Reaction (Severity) Comment Status Reported By Updated By [id number] SNOMED CT Penicillins Adverse reaction to substance Not Specified active [id number] on August 31, 2025 1:29:34 AM [facility] [id number] SNOMED [address] Penicillins Adverse reaction to substance Not Specified active [id number] on August 31, 2025 1:29:34 AM [facility] 723 RXNorm Amoxicillin Adverse reaction to substance Not Specified active [id number] on August 31, 2025 1:29:33 AM [facility] MEDICATIONS HOME MEDICATIONS Status RXNORM NDC Medication Dose Route Frequency Dates Comments Reported By Updated By Drug Treatment Unknown DISCHARGE MEDICATIONS Status RXNORM NDC Medication Dose Route Frequency Dates Dis pense Data Comments Physician Updated By No Discharge Medication Info rmation Available INPATIENT MEDICATIONS Status RXNORM NDC Medication Dose Route Frequency Rat e Quantity Dates Indication Dispense Data Comments Physician Updated By [facility] [id number] 2017 801 naproxen (NAPROSYN) 250 MG TABS 250.0 MG ORAL ONE TIME ONLY Start: er 2024 1:36:0 0 AM [place] End: er 2024 1:36:0 0 AM [facility] GUSTAVO Franklin MD INTERFAC ED on August 31, 2025 1:35:00 AM [facility] SOCIAL HISTORY SOCIAL HISTORY - Smoking Status SNOMED-CT Social History Element Description Effective Dates Offered Cessation Comment Updated By [id number] Current Tobacco smoking status Never Smoked [id number] on August 31, 2025 1:30:38 AM UTC SOCIAL HISTORY - Gender Sex: Female SOCIAL HISTORY - Status : status i nformation is not available Intention in Next Year: intention information is not available SOCIAL HISTORY - Assessments Code System Description Status Date Value of Assessment Updated By Comment Assessment Information is no t available SOCIAL HISTORY - [place] Affiliation [place] information is not av ailable SOCIAL HISTORY - Legal Sex Legal Sex information is not available SOCIAL HISTORY - Sexual Behavior Sexual Orientation Gender Identity SNOMED-CT Description SNO MED -CT Description Activity Level No of Partners Partner Type UpdatedBy Information is not available SOCIAL HISTORY - Occupation Occupation information is no t available VITAL SIGNS PATIENT VITAL SIGNS This section displays the mo st recent value for each vital sign as of August 31, 2025 2:44:03 AM UTC [place] Code Vital Sign Activity Date Result Updated By 8310-5 Body temperature August 31 1:24:00 AM UTC 97.2 [degF] 02312-8 Body weight Measured August 1:26:26 AM UTC 106.3 kg (234.0 lb) [id number] on August 31, 2025 1:26:26 AM UTC 8462-4 Diastolic blood pressure August 31, 2025 1:44:00 AM UTC 72.0 mm[Hg] 8867-4 Heart rate August 31 1:44:00 AM UTC 92 /min 88977-2 Oxygen saturation in Arterial blood by Pulse oximetry August 31, 2025 1:44:00 AM UTC 97.0 % 9279-1 Respiratory rate August 31 1:44:00 AM UTC 18 /min 8480-6 Systolic blood pressure August 31, 2025 1:44:00 AM UTC 121.0 mm[Hg] PEDIATRIC GROWTH CHART - VITAL SIGNS This section displays Head C ircumference Percentile, Weight for Length Percentile and BMI Percentile [place] Code Pediatric Measure Age (Months) Result Updat ed By No Pediatric Growth Chart Pe rcentile Information Available. HEALTH CONCERNS Problems Concern Status Health Concern problem infor mation not available. Smoking Status Status Years Used Consumed packs p er day Health Concern smoking histo ry information not available. Family History Concern Status Health Concern family histor y information not available. ENCOUNTERS ENCOUNTER INFORMATION Reason for Visit FOOT PAIN Admission August 31, 2025 1:17:00 AM UTC [address] [id number] Discharge August 31, 2025 1:44:00 AM [facility] DISCHARGED TO HOME OR SELF CARE ENCOUNTER DIAGNOSES Notes information is not adina ilable. Code System Diagnosis Onset Date Diagnosis information is not available. ABSTRACT DIAGNOSES Code System Diagnosis Updated By Abatement Date Abstract Diagnosis informati on is not available. CARE TEAM Care Campus Receptionist Role TASH CHEN Admitting TASH CHEN Primary Attending TASH CHEN Referring EDUARDO MASTERS Primary Care CARE TEAM CARE house principal Role on Team Location Telecom Status Start Date End Duane e Updated By GUSTAVO Franklin MD, MD Referring normal August 31, 2025 1:33:39 AM [place] August 31, 2025 1:44:00 AM [facility] [id number] on August 31, 2025 1:33:39 AM [facility] GUSTAVO Franklin MD, MD Attending normal August 31, 2025 1:33:39 AM [facility] August 31, 2025 1:44:00 AM [facility] [id number] on August 31, 2025 1:33:39 AM [facility] GUSTAVO Franklin MD, MD Admitting normal August 31, 2025 1:33:39 AM [facility] August 31, 2025 1:44:00 AM [facility] [id number] on August 31, 2025 1:33:39 AM [facility] SONAM CLARK APRN [facility] normal August 31, 2025 1:17:33 AM MOC August 31, 2025 1:44:00 AM [facility] [id number] on August 31, 2025 1:33:39 AM [facility]
[2025-09-01 12:01] VITALS: BP 132/87; PULSE 86; RESP 15; TEMP 37.1; O2SAT 100; BMI 42.7
[2025-09-01 12:07] VITALS: BP 130/80; PULSE 80; RESP 16; O2SAT 99
--- NOTE | 2025-09-01 12:20 | ED_ITS ---
<Statement entered by Lorne Byrne MD - 09/01/25 13:56> I was consulted by the PAL, and we discussed the complexity of the problems being addressed. I approve the treatment and management plan for this patient's care in the emergency department, thus performing a substantive portion of the medical decision making. Lorne Byrne MD Discharge Plan Disposition Chief Complaint: PAIN Prescriptions Prescriptions: No Action cetirizine 10 mg tablet 10 mg PO atorvastatin 10 mg tablet See Rx Instructions .ROUTE .COMPLEX Qty: 90 2RF Dose Instruction: TAKE 1 TABLET BY MOUTH AT BEDTIME NIGHTLY Rx Instructions: TAKE 1 TABLET BY MOUTH AT BEDTIME NIGHTLY ferrous sulfate [FeroSul] 325 mg (65 mg iron) tablet See Rx Instructions .ROUTE .COMPLEX Qty: 90 2RF Dose Instruction: TAKE 1 TABLET BY MOUTH ONCE DAILY Rx Instructions: TAKE 1 TABLET BY MOUTH ONCE DAILY omeprazole 40 mg capsule,delayed release(DR/EC) 40 mg PO DAILY Qty: 90 1RF methylprednisolone [Medrol (Gulshan)] 4 mg tablets,dose pack See Rx Instructions PO PER PKG DIR Qty: 21 0RF Rx Instructions: PO PER PKG DIR diclofenac sodium [Voltaren Arthritis Pain] 1 % gel 2 g topical QID Qty: 100 3RF Rx Instructions: apply to single elbow, wrist or hand; for hand includes palm/fingers/back of hand lisinopril-hydrochlorothiazide 10-12.5 mg tablet See Rx Instructions .ROUTE .COMPLEX Qty: 90 2RF Dose Instruction: TAKE 1 TABLET BY MOUTH ONCE DAILY Rx Instructions: TAKE 1 TABLET BY MOUTH ONCE DAILY ropinirole 1 mg tablet See Rx Instructions .ROUTE .COMPLEX Qty: 90 1RF Dose Instruction: TAKE 1 TABLET BY MOUTH AT BEDTIME NIGHTLY; ADMINISTER 1-3 HOURS BEFORE BEDTIME Rx Instructions: TAKE 1 TABLET BY MOUTH AT BEDTIME NIGHTLY; ADMINISTER 1-3 HOURS BEFORE BEDTIME buspirone 5 mg tablet See Rx Instructions .ROUTE .COMPLEX Qty: 90 1RF Dose Instruction: TAKE 1 TABLET BY MOUTH ONCE DAILY Rx Instructions: TAKE 1 TABLET BY MOUTH ONCE DAILY ergocalciferol (vitamin D2) [Vitamin D2] 1,250 mcg (50,000 unit) capsule See Rx Instructions .ROUTE .COMPLEX Qty: 90 1RF Dose Instruction: TAKE 1 CAPSULE BY MOUTH ONCE WEEKLY Rx Instructions: TAKE 1 CAPSULE BY MOUTH ONCE WEEKLY diclofenac sodium 75 mg tablet,delayed release (DR/EC) See Rx Instructions .ROUTE .COMPLEX Qty: 60 0RF Dose Instruction: TAKE 1 TABLET BY MOUTH TWICE DAILY NEEDED FOR PAIN Rx Instructions: TAKE 1 TABLET BY MOUTH TWICE DAILY NEEDED FOR PAIN potassium chloride [Klor-Con] 20 mEq packet 20 meq PO BID 3 Days Qty: 6 0RF methocarbamol 500 mg tablet 500 mg PO HS PRN (Reason: pain) 3 Days Qty: 3 0RF methocarbamol 500 mg tablet 500 mg PO Q6H PRN (Reason: Spasms) Qty: 30 0RF Referrals Follow up/Referrals: Yesika Trejo APRN [Primary Care Provider, Family Practice] - See instructions Print Language Print Language: Zambian Discharge ED Provider: Lorne Byrne Adult HPI General Chief complaint: PAIN Stated complaint: Left foot pain below pinky toe and runs up leg Time Seen by Provider: 09/01/25 12:01 Mode of Arrival: Ambulatory Source of Information: Patient Description of Symptoms (Recalled from ER Triage Doc. by RN): Pt was seen in the ER a week ago for a pulled muscle in her back. Pt states she thinks the pain medicine and the potassium she was given has made the top and bottom of her left foot hurt. Pt states she has a hard time putting weight on it, and the pain travels up her leg. History of Present Illness HPI narrative: 35-year-old female presents to the ED today for complaint of tingling in her left toes and sometimes it goes into her left lower leg. She says that she has not had any trauma to her leg or any other incidents with her legs that would cause an injury. She says when she put weight on it she says it does go into the back of her knee. She said that she is on potassium, iron and vitamin D replacements. She is concerned that maybe it is her potassium. She has no shortness of breath or chest pain. No redness or swelling. No other complaints. Related Data Home Medications ?Medication ?Instructions ?Recorded ?Confirmed cetirizine 10 mg tablet 10 mg PO 05/27/25 06/24/25 Previous Rx's ?Medication ?Instructions ?Recorded methocarbamol 500 mg tablet 500 mg PO Q6H PRN Spasms # 30 tabs 01/02/25 lisinopril 10 See Rx Instructions .Route 0 01/28/25 mg-hydrochlorothiazide 12.5 mg .COMPLEX #90 tabs tablet buspirone 5 mg tablet See Rx Instructions .Route 0 04/22/25 .COMPLEX #90 tabs ropinirole 1 mg tablet See Rx Instructions .Route 0 04/22/25 .COMPLEX #90 tabs atorvastatin 10 mg tablet See Rx Instructions .Route 0 05/27/25 .COMPLEX #90 ea ferrous sulfate 325 mg (65 mg See Rx Instructions .Rou te 05/27/25 iron) tablet (FeroSul) .COMPLEX #90 tabs methylprednisolone 4 mg tablets in See Rx Instructions PO PER PKG DIR 05/27/25 a dose pack (Medrol (Gulshan)) #21 tabs omeprazole 40 mg capsule,delayed 40 mg PO DAILY #90 ca ps 05/27/25 release diclofenac sodium 1 % topical gel 2 g topical QID #100 grams 06/24/25 (Voltaren Arthritis Pain) ergocalciferol (vitamin D2) 1,250 See Rx Instructions .Route 06/24/25 mcg (50,000 unit) capsule (Vitamin .COMPLEX #90 caps D2) diclofenac sodium 75 mg See Rx Instructions .Route 1 tablet,delayed release .COMPLEX #60 tabs methocarbamol 500 mg tablet 500 mg PO HS PRN pain 3 da ys #3 08/24/25 tabs potassium chloride 20 mEq oral 20 meq PO BID 3 days #6 packets 08/24/25 packet (Klor-Con) Allergies Allergy/AdvReac Type Severity Reaction Status Date / Time amoxicillin (AMOXICILLIN) Allergy Unknown Rash Verified 08/24/25 16:36 Penicillins (PENICILLINS) Allergy Unknown Rash Verified 08/24/25 16:36 [facility] Disclaimer: The information contained in this section may have been updated after the patient was seen, as this information can be updated by other users. Medical History Eustachian tube dysfunction Swelling Hand pain, right Ganglion cyst of dorsum of right wrist Influenza A Rib pain Shortness of breath URI (upper respiratory infection) Chest pain Strain of right trapezius muscle Atypical chest pain Nausea vomiting and diarrhea Diarrhea Body aches Muscle strain of left wrist Abdominal pain Low back strain I recommend patient doing PT or visiting a chiroprator Pneumonia Depression Sinusitis Acute bronchitis Anxiety Asthma Hypertension Upper respiratory infection, viral Acute wrist pain Choking episode Viral syndrome Otitis media Viral upper respiratory infection Conjunctivitis Mucus plugging of bronchi Acute bronchitis Strep throat Surgical History History of section Social History Smoking Status: Never smoker alcohol intake: never current occupational status: other Travel in the last 8 weeks?: None Have you lived/traveled outside [place] in past 30 days?: No Contact w/someone who lives/traveled outside US past 30 days?: No Exposure to someone with infectious disease in past 14 days?: No Do you have a fever (greater than 100.4 F or 38 C)?: No Have you tested positive for COVID-19?: No Exposed to someone with COVID-19 in past 14 days?: No Do you have a sore throat?: No Do you have a cough?: No Do you have any weakness?: No Do you have any diarrhea?: No Are you experiencing any unusual bleeding?: No Do you have any muscle aches/pain?: No Do you have any abdominal pain?: No Are you experiencing loss of taste or smell?: No Other Medical History Have you received the Flu Vaccine for this season: No Have you received the Pneumonia Vaccine: No ROS Obtained: Yes Systems reviewed as appropriate & no additional complaints except as documented Constitutional Constitutional: Reports as per HPI Physical Exam General General appearance: alert and in no apparent distress Head Head exam: normocephalic Eye Eye exam: Present PERRL and EOMI ENT ENT exam: Present normal oropharynx and mucous membranes moist Neck Neck exam: Present full ROM and trachea midline Respiratory Respiratory exam: Present normal lung sounds bilaterally Cardiovascular Cardiovascular exam: Present regular rate, normal rhythm, normal heart sounds, +S1 and +S2 Extremities Exam Extremities exam: Present full ROM, tenderness (At the back of the knee) and normal capillary refill Neurological Exam Neurological exam: Present alert and oriented X3 Skin Skin exam: Present warm and dry Medical Decision Making Medical Records Screening: Per USPSTF and CDC recommendations, given the prevalence of disease in our region, it is our hospital?s policy to screen for HIV and viral Hepatitis for all patients aged 18 and over and those with ongoing risk factors. [place] Inquiry Pt receiving controlled substance: No [place] was queried for this patient: No Vital Signs: 09/01/25 12:01 09/01/25 12:07 Temperature 98.7 F Temperature Source Oral Pulse Rate 80 Pulse Rate [Right] 86 Respiratory Rate 15 16 Blood Pressure 130/80 Blood Pressure [Right Arm] 132/87 Blood Pressure Mean [Right Arm] 102 Blood Pressure Source [Right Arm] Automatic Cuff Blood Pressure Position [Right Arm] Sitting 02 Sat by Pulse Oximetry 100 99 Oxygen Delivery Method Room Air Room Air Lab Data Lab Results 09/01/25 12:21: WBC 7.0, RBC 4.54, Hgb 13.8, Hct 39.3, MCV 86.6, MCH 30.4, MCHC 35.1, RDW 12.0, Plt Count 419, MPV 8.3, Neut % (Auto) 65.7, Lymph % (Auto) 25.5, [place] % (Auto) 5.4, Eos % (Auto) 2.7, Baso % (Auto) 0.4, Neut # (Auto) 4.6, Lymph # (Auto) 1.8, [place] # (Auto) 0.4, Eos # (Auto) 0.2, Baso # (Auto) 0.0, Sodium 132 L, Potassium 3.2 L, Chloride 98, Carbon Dioxide 27, Anion Gap 10.2, BUN 9, Creatinine 0.80, Estimated Creat Clear 77, Estimated GFR 81, Est GFR ( Amer) 98, Glucose 98, Calcium 9.2, Magnesium 2.0, Total Bilirubin 0.5, AST 23, ALT 21, Alkaline Phosphatase 66, Total Protein 7.6, Albumin 4.5, Globulin 3.1, Albumin/Globulin Ratio 1.5 09/01/25 12:21 09/01/25 12:21 Orders (Tests/Meds): ED MEDICATIONS Discontinued Medications Generic Name Dose Route Start Last Admin Trade Name Freq PRN Reason Stop Dose Admin Potassium Chloride 60 meq 09/01/25 12:41 Potassium Chloride 20meq Tab PO 09/01/25 12:42 ONCE ONE ORDERS Category Date Time Status CBC [Complete Blood Count Auto Diff] Stat Lab 09/01/25 12:21 Completed Comprehensive Metabolic Panel Stat Lab 09/01/25 12:21 Completed Magnesium Stat Lab 09/01/25 12:21 Completed Medical Decision Narrative: patient is a 35-year-old female presenting to the emergency department for evaluation of tingling in her left toes. Patient is hemodynamically stable and nontoxic-appearing upon arrival, afebrile. Differential diagnosis includes peripheral neuropathy, low potassium low magnesium among others. Workup will be conducted with hematologic labs. Initial workup reviewed by me hematologic labs are remarkable for potassium 3.2, we are replacing with 60 mill equivalents of potassium here in the ED. We will send 5 days of potassium home and have them recheck with PCP. Imaging was considered but unnecessary during this visit. Patient needs to follow-up with her PCP for further imaging if needed. Patient safe for discharge home. Critical Care Critical Care Time Critical Care Time: No
[2025-09-01 12:28] LABS: Hematocrit 39.3 % (37.0-47.0); Hemoglobin 13.8 g/dL (12.2-16.2); Immature Granulocytes % 0.3 %; Mean Corpuscular HGB Conc 35.1 g/dL (31.8-35.4); Mean Corpuscular Hemoglobin 30.4 pg (27.0-31.2); Mean Corpuscular Volume 86.6 fl (81-99); Nucleated Red Blood Cells % 0 %; Platelet Count 419 K/mm3 (142-424); Red Blood Count 4.54 M/mm3 (4.20-5.40); Red Cell Distribution Width-SD 38.0 fL; White Blood Count 7.0 K/mm3 (4.8-10.8)
[2025-09-01 12:36] LABS: Alanine Aminotransferase 21 U/L (12-78); Albumin Level 4.5 g/dl (3.5-5.0); Albumin/Globulin Ratio 1.5 (1.1-1.8); Alkaline Phosphatase 66 U/L (38-126); Anion Gap 10.2 mEq/L (5-15); Aspartate Amino Transferase 23 U/L (14-36); Bilirubin,Total 0.5 mg/dl (0.2-1.3); Blood Urea Nitrogen 9 mg/dl (7-17); Calcium 9.2 mg/dl (8.4-10.2); Carbon Dioxide 27 mmol/L (22.0-30.0); Chloride 98 mmol/L (98-107); Creatinine Clearance Estimated 77 mL/min (50-200); Creatinine,Serum 0.80 mg/dl (0.52-1.04); Estimated Glomerular Filt Rate 81 ml/min (>60); GFR (African American) 98 ML/MIN (>60); Globulin 3.1 g/dL (1.3-3.2); Glucose 98 mg/dl (74-100); Magnesium 2.0 mg/dl (1.6-2.3); Potassium 3.2 mmoL/L (3.5-5.1); Sodium 132 mmol/L (136-145); Total Protein,Serum 7.6 g/dl (6.3-8.2)
[2025-09-01] MEDS: POTASSIUM CHLORIDE 20MEQ TAB 60 MEQ PO (13:07)
[2025-09-01 13:19] VITALS: BP 109/67; PULSE 78; RESP 18; TEMP 36.9; O2SAT 100
== END 2025-09-01 13:19 | disposition home or self-care (01) ==
PROVIDERS: Nurse Practitioner; Emergency Provider Student in an Organized Health Care Education/Training Program; PCP Family Medicine
DX: E87.6 Hypokalemia (principal)
CPT/HCPCS: 80053; 83735; 85025; 99283

== ENCOUNTER 2025-09-15 15:04 | Emergency (ER) | payer OTHER, SELFPAY ==
--- OUTSIDE RECORDS SUMMARY | 2025-09-02 08:18 | XMS_ITS | Continuity of Care Document ---
Author Organization [facility] Apps [employer] Phone Care Team Providers Care Color Maker Dyer Name Role Phone GUSTAVO, TASH E Admitting Unavailable GUSTAVO, TASH E Primary Attending Unavailable GUSTAVO, TASH E Unavailable Unavailable EDUARDO MASTERS Primary Care ALLERGIES AND ADVERSE REACTIONS ALLERGIES AND ADVERSE REACTIONS Code System Allergy Substance Adverse Reaction Date Reaction (Severity) Comment Status Reported By Updated By [id number] SNOMED CT Penicillins Adverse reaction to substance Not Specified active [id number] on August 31, 2025 1:29:34 AM [facility] [id number] SNOMED CT Penicillins Adverse reaction to substance Not Specified active [id number] on August 31, 2025 1:29:34 AM [facility] 723 RXNorm Amoxicillin Adverse reaction to substance Not Specified active [id number] on August 31, 2025 1:29:33 AM [facility] MEDICATIONS HOME MEDICATIONS Status RXNORM NDC Medication Dose Route Frequency Dates Comments Reported By Updated By Drug Treatment Unknown DISCHARGE MEDICATIONS Status RXNORM NDC Medication Dose Route Frequency Dates Dis pense Data Comments Physician Updated By No Discharge Medication Info rmation Available INPATIENT MEDICATIONS Status RXNORM NDC Medication Dose Route Frequency Rat e Quantity Dates Indication Dispense Data Comments Physician Updated By Gregory [facility] [id number] 2017 801 naproxen (NAPROSYN) 250 MG TABS 250.0 MG ORAL ONE TIME ONLY Start: er 2024 1:36:0 0 AM [place] End: er 2024 1:36:0 0 AM [facility] GUSTAVO Franklin MD INTERFAC ED on August 31, 2025 1:35:00 AM [facility] SOCIAL HISTORY SOCIAL HISTORY - Smoking Status SNOMED-CT Social History Element Description Effective Dates Offered Cessation Comment Updated By [id number] Current Tobacco smoking status Never Smoked [id number] on August 31, 2025 1:30:38 AM UTC SOCIAL HISTORY - Gender Sex: Female SOCIAL HISTORY - Status : status i nformation is not available Intention in Next Year: intention information is not available SOCIAL HISTORY - Assessments Code System Description Status Date Value of Assessment Updated By Comment Assessment Information is no t available SOCIAL HISTORY - [place] Affiliation [place] information is not av ailable SOCIAL HISTORY [...] value for each vital sign as of September 02, 2025 1:18:46 PM UTC Loinc Code Vital Sign Activity Date Result Updated By 8310-5 Body temperature August 31 1:24:14 AM UTC 97.2 [degF] 27853-9 Body weight Measured August 1:26:26 AM UTC 106.3 kg (234.0 lb) [id number] on August 31, 2025 1:26:26 AM UTC 8462-4 Diastolic blood pressure August 31, 2025 1:44:00 AM UTC 72.0 mm[Hg] 8867-4 Heart rate August 31 1:44:00 AM UTC 92 /min 39958-5 Oxygen saturation in Arterial blood by Pulse [...] PAIN Admission August 31, 2025 1:17:[address] [id number] Discharge August 31, 2025 1:44:00 AM [facility] DISCHARGED TO HOME OR SELF CARE ENCOUNTER DIAGNOSES Notes information is not adina ilable. Code System Diagnosis Onset Date Diagnosis information is not available. ABSTRACT DIAGNOSES Code System Diagnosis Updated By Abatement Date M79.672 ICD10 PAIN IN LEFT FOOT [id number] on September 02, 2025 1:18:05 PM [place] M25.552 ICD10 PAIN IN LEFT HIP [id number] on September 02, 2025 1:18:05 PM [facility] R20.2 ICD10 PARESTHESIA OF SKIN [id number] on September 02, 2025 1:18:05 PM [facility] R20.2 ICD10 PARESTHESIA OF SKIN [id number] on September 02, 2025 1:18:05 PM [facility] Z88.0 ICD10 ALLERGY STATUS TO PENICILLIN [id number] on September 02, 2025 1:18:05 PM [facility] CARE TEAM Care Color Maker Dyer Role TASH CHEN Admitting TASH CHEN Primary Attending TASH CHEN Referring EDUARDO MASTERS Primary Care CARE TEAM CARE supervisor drying Role on Team Location Telecom Status Start Date End Duane e Updated By GUSTAVO Franklin MD, MD Referring normal August 31, 2025 1:33:39 AM [facility] August 31, 2025 1:44:00 AM [facility] [id number] on August 31, 2025 1:33:39 AM [facility] GUSTAVO Franklin MD, MD Attending normal August 31, 2025 1:33:39 AM [facility] August 31, 2025 1:44:00 AM [facility] [id number] on August 31, 2025 1:33:39 AM [facility] GUSTAVO Franklin MD, MD Admitting normal August 31, 2025 1:33:39 AM [facility] August 31, 2025 1:44:00 AM [facility] [id number] on August 31, 2025 1:33:39 AM [facility] SONAM CLARK APRN PCP normal August 31, 2025 1:17:33 AM [facility] August 31, 2025 1:44:00 AM [facility] [id number] on August 31, 2025 1:33:39 AM [facility]
[2025-09-15 15:21] VITALS: BP 121/72; PULSE 72; RESP 20; TEMP 37.1; O2SAT 100; BMI 40.1
--- NOTE | 2025-09-15 15:39 | ED_ITS ---
<Statement entered by Clemencia Licea DO - 09/15/25 19:31> I was consulted by the PAL, and we discussed the complexity of problems being addressed. I approve the treatment and management plan for this patient's care in the emergency department, thus performing a substantial portion of the medical decision making. Clemencia Licea DO Discharge Plan Disposition Chief Complaint: PAIN Prescriptions Prescriptions: No Action cetirizine 10 mg tablet 10 mg PO atorvastatin 10 mg tablet See Rx Instructions .ROUTE .COMPLEX Qty: 90 2RF Dose Instruction: TAKE 1 TABLET BY MOUTH AT BEDTIME NIGHTLY Rx Instructions: TAKE 1 TABLET BY MOUTH AT BEDTIME NIGHTLY ferrous sulfate [FeroSul] 325 mg (65 mg iron) tablet See Rx Instructions .ROUTE .COMPLEX Qty: 90 2RF Dose Instruction: TAKE 1 TABLET BY MOUTH ONCE DAILY Rx Instructions: TAKE 1 TABLET BY MOUTH ONCE DAILY omeprazole 40 mg capsule,delayed release(DR/EC) 40 mg PO DAILY Qty: 90 1RF methylprednisolone [Medrol (Gulshan)] 4 mg tablets,dose pack See Rx Instructions PO PER PKG DIR Qty: 21 0RF Rx Instructions: PO PER PKG DIR diclofenac sodium [Voltaren Arthritis Pain] 1 % gel 2 g topical QID Qty: 100 3RF Rx Instructions: apply to single elbow, wrist or hand; for hand includes palm/fingers/back of hand lisinopril-hydrochlorothiazide 10-12.5 mg tablet See Rx Instructions .ROUTE .COMPLEX Qty: 90 2RF Dose Instruction: TAKE 1 TABLET BY MOUTH ONCE DAILY Rx Instructions: TAKE 1 TABLET BY MOUTH ONCE DAILY ropinirole 1 mg tablet See Rx Instructions .ROUTE .COMPLEX Qty: 90 1RF Dose Instruction: TAKE 1 TABLET BY MOUTH AT BEDTIME NIGHTLY; ADMINISTER 1-3 HOURS BEFORE BEDTIME Rx Instructions: TAKE 1 TABLET BY MOUTH AT BEDTIME NIGHTLY; ADMINISTER 1-3 HOURS BEFORE BEDTIME buspirone 5 mg tablet See Rx Instructions .ROUTE .COMPLEX Qty: 90 1RF Dose Instruction: TAKE 1 TABLET BY MOUTH ONCE DAILY Rx Instructions: TAKE 1 TABLET BY MOUTH ONCE DAILY ergocalciferol (vitamin D2) [Vitamin D2] 1,250 mcg (50,000 unit) capsule See Rx Instructions .ROUTE .COMPLEX Qty: 90 1RF Dose Instruction: TAKE 1 CAPSULE BY MOUTH ONCE WEEKLY Rx Instructions: TAKE 1 CAPSULE BY MOUTH ONCE WEEKLY diclofenac sodium 75 mg tablet,delayed release (DR/EC) 75 mg PO BID PRN (Reason: for pain) Qty: 60 4RF potassium chloride [Klor-Con] 20 mEq packet 20 meq PO BID 3 Days Qty: 6 0RF methocarbamol 500 mg tablet 500 mg PO HS PRN (Reason: pain) 3 Days Qty: 3 0RF methocarbamol 500 mg tablet 500 mg PO Q6H PRN (Reason: Spasms) Qty: 30 0RF potassium chloride [K-Tab] 20 mEq tablet extended release 20 meq PO DAILY 5 Days Qty: 5 0RF Referrals Follow up/Referrals: Yesika Trejo APRN [Primary Care Provider, Family Practice] - See instructions Print Language Print Language: Romanian Discharge ED Provider: Clemencia Licea Adult HPI General Chief complaint: PAIN Stated complaint: legs and hands are painful Time Seen by Provider: 09/15/25 15:30 Mode of Arrival: Ambulatory Source of Information: Patient Description of Symptoms (Recalled from ER Triage Doc. by RN): patient presents for bilateral feet/leg pain and bilateral hand pain. she states it has been going on for a while and she believes it is her potassium levels because i have issues with it . she also states bilateral ear pain. History of Present Illness HPI narrative: 35-year-old female presents to the ED today for complaint of bilateral feet and leg pain as well as bilateral hand pain. She states that it has been going on for a while and believes that her potassium needs to be checked. She has had history of low potassium and low magnesium. She also states she has bilateral ear pain. She denies eating solids. She says she barely eats anything. She has had no fevers or chills. No nausea, vomiting or diarrhea Related Data Home Medications ?Medication ?Instructions ?Recorded ?Confirmed cetirizine 10 mg tablet 10 mg PO 05/27/25 06/24/25 Previous Rx's ?Medication ?Instructions ?Recorded methocarbamol 500 mg tablet 500 mg PO Q6H PRN Spasms # 30 tabs 01/02/25 lisinopril 10 See Rx Instructions .Route 0 01/28/25 mg-hydrochlorothiazide 12.5 mg .COMPLEX #90 tabs tablet buspirone 5 mg tablet See Rx Instructions .Route 0 04/22/25 .COMPLEX #90 tabs ropinirole 1 mg tablet See Rx Instructions .Route 0 04/22/25 .COMPLEX #90 tabs atorvastatin 10 mg tablet See Rx Instructions .Route 0 05/27/25 .COMPLEX #90 ea ferrous sulfate 325 mg (65 mg See Rx Instructions .Rou te 05/27/25 iron) tablet (FeroSul) .COMPLEX #90 tabs methylprednisolone 4 mg tablets in See Rx Instructions PO PER PKG DIR 05/27/25 a dose pack (Medrol (Gulshan)) #21 tabs omeprazole 40 mg capsule,delayed 40 mg PO DAILY #90 ca ps 05/27/25 release diclofenac sodium 1 % topical gel 2 g topical QID #100 grams 06/24/25 (Voltaren Arthritis Pain) ergocalciferol (vitamin D2) 1,250 See Rx Instructions .Route 06/24/25 mcg (50,000 unit) capsule (Vitamin .COMPLEX #90 caps D2) methocarbamol 500 mg tablet 500 mg PO HS PRN pain 3 da ys #3 08/24/25 tabs potassium chloride 20 mEq oral 20 meq PO BID 3 days #6 packets 08/24/25 packet (Klor-Con) potassium chloride 20 mEq 20 meq PO DAILY 5 days #5 ta bs 09/01/25 tablet,extended release (K-Tab) diclofenac sodium 75 mg 75 mg PO BID PRN for pain #6 0 tabs 09/02/25 tablet,delayed release Allergies Allergy/AdvReac Type Severity Reaction Status Date / Time amoxicillin (AMOXICILLIN) Allergy Unknown Rash Verified 08/24/25 16:36 Penicillins (PENICILLINS) Allergy Unknown Rash Verified 08/24/25 16:36 [facility] Disclaimer: The information contained in this section may have been updated after the patient was seen, as this information can be updated by other users. Medical History Eustachian tube dysfunction Swelling Hand pain, right Ganglion cyst of dorsum of right wrist Influenza A Rib pain Shortness of breath URI (upper respiratory infection) Chest pain Strain of right trapezius muscle Atypical chest pain Nausea vomiting and diarrhea Diarrhea Body aches Muscle strain of left wrist Abdominal pain Low back strain I recommend patient doing PT or visiting a chiroprator Pneumonia Depression Sinusitis Acute bronchitis Anxiety Asthma Hypertension Upper respiratory infection, viral Acute wrist pain Choking episode Viral syndrome Otitis media Viral upper respiratory infection Conjunctivitis Mucus plugging of bronchi Acute bronchitis Strep throat Surgical History History of section Social History Smoking Status: Never smoker alcohol intake: never current occupational status: other Travel in the last 8 weeks?: None Have you lived/traveled outside US in past 30 days?: No Contact w/someone who lives/traveled outside US past 30 days?: No Exposure to someone with infectious disease in past 14 days?: No Do you have a fever (greater than 100.4 F or 38 C)?: No Have you tested positive for COVID-19?: No Exposed to someone with COVID-19 in past 14 days?: No Do you have a sore throat?: No Do you have a cough?: No Do you have any weakness?: No Do you have any diarrhea?: No Are you experiencing any unusual bleeding?: No Do you have any muscle aches/pain?: No Do you have any abdominal pain?: No Are you experiencing loss of taste or smell?: No Other Medical History Have you received the Flu Vaccine for this season: No Have you received the Pneumonia Vaccine: No ROS Obtained: Yes Systems reviewed as appropriate & no additional complaints except as documented Constitutional Constitutional: Reports as per HPI Physical Exam General General appearance: alert and in no apparent distress Head Head exam: normocephalic Eye Eye exam: Present PERRL and EOMI ENT ENT exam: Present normal oropharynx and mucous membranes moist Neck Neck exam: Present full ROM and trachea midline Respiratory Respiratory exam: Present normal lung sounds bilaterally Cardiovascular Cardiovascular exam: Present regular rate, normal rhythm, normal heart sounds, +S1 and +S2 Abdominal Exam Abdominal exam: Present soft and normal bowel sounds Extremities Exam Extremities exam: Present full ROM and normal capillary refill Neurological Exam Neurological exam: Present alert and oriented X3 Skin Skin exam: Present warm and dry Medical Decision Making Medical Records Screening: Per USPSTF and CDC recommendations, given the prevalence of disease in our region, it is our hospital?s policy to screen for HIV and viral Hepatitis for all patients aged 18 and over and those with ongoing risk factors. Jordan Inquiry Pt receiving controlled substance: No Jordan was queried for this patient: No Vital Signs: 09/15/25 15:21 Temperature 98.7 F Temperature Source Oral Pulse Rate [Right Radial] 72 Respiratory Rate 20 Blood Pressure [Right Arm] 121/72 Blood Pressure Mean [Right Arm] 88 Blood Pressure Source [Right Arm] Automatic Cuff Blood Pressure Position [Right Arm] Sitting 02 Sat by Pulse Oximetry 100 Oxygen Delivery Method Room Air Lab Data Lab Results 09/15/25 16:07: WBC 6.7, RBC 4.48, Hgb 13.7, Hct 41.1, MCV 91.7, MCH 30.6, MCHC 33.3, RDW 12.1, Plt Count 381, MPV 8.7, Neut % (Auto) 65.4, Lymph % (Auto) 26.8, Morgan % (Auto) 4.6, Eos % (Auto) 2.5, Baso % (Auto) 0.6, Neut # (Auto) 4.4, Lymph # (Auto) 1.8, Morgan # (Auto) 0.3, Eos # (Auto) 0.2, Baso # (Auto) 0.0, Sodium 139, Potassium 4.1, Chloride 102, Carbon Dioxide 26, BUN 13, Creatinine 0.70, Estimated Creat Clear 186, Estimated GFR 95, Est GFR ( Amer) 115, Glucose 85, Calcium 9.2, Magnesium 2.2, Total Bilirubin 0.3, AST 25, ALT 14, Alkaline Phosphatase 71, Total Protein 7.3, Albumin 4.3, Globulin 3.0, Albumin/Globulin Ratio 1.4, Lipase 128 09/15/25 16:07 09/15/25 16:07 Orders (Tests/Meds): ED MEDICATIONS Generic Name Dose Route Start Last Admin Trade Name Freq PRN Reason Stop Dose Admin Sodium Chloride 1,000 mls @ 999 mls/hr 09/15/25 15:35 09/15/25 16:26 Sod Chlor 0.9% 1000ml Bag IV 09/15/25 16:35 Not Given .Q1H1M ONE Discontinued Medications Generic Name Dose Route Start Last Admin Trade Name Freq PRN Reason Stop Dose Admin Ketorolac Tromethamine 30 mg 09/15/25 15:35 09/15/25 16:26 Ketorolac 30mg/Ml Vial IV 09/15/25 15:36 Not Given ONCE ONE Ketorolac Tromethamine 30 mg 09/15/25 16:02 09/15/25 16:26 Ketorolac 30mg/Ml Vial IM 09/15/25 16:03 30 mg ONCE ONE Administration ORDERS Category Date Time Status CBC [Complete Blood Count Auto Diff] Stat Lab 09/15/25 16:07 Completed Comprehensive Metabolic Panel Stat Lab 09/15/25 16:07 Results Lipase Stat Lab 09/15/25 16:07 Results Magnesium Stat Lab 09/15/25 16:07 Results Medical Decision Narrative: patient is a 35-year-old female presenting to the emergency department for evaluation of bilateral leg pain and hand pain.. Patient is hemodynamically stable and nontoxic-appearing upon arrival, afebrile. Differential diagnosis includes hypokalemia, hypomagnesemia, other electrolyte disturbance. Workup will be conducted with hematologic labs, specific imaging. Initial inventions include crystalloid bolus, analgesics. Toradol given to patient here in the ED. Patient and I discussed that her labs are completely normal here in the ED. She needs a doctor primary care about her leg pain and her hand pain. We discussed circulation issues and that this may be a circulation issue. She is safe for discharge from a ER standpoint. Patient is stable. Critical Care Critical Care Time Critical Care Time: No
[2025-09-15 16:16] LABS: Hematocrit 41.1 % (37.0-47.0); Hemoglobin 13.7 g/dL (12.2-16.2); Immature Granulocytes % 0.1 %; Mean Corpuscular HGB Conc 33.3 g/dL (31.8-35.4); Mean Corpuscular Hemoglobin 30.6 pg (27.0-31.2); Mean Corpuscular Volume 91.7 fl (81-99); Nucleated Red Blood Cells % 0 %; Platelet Count 381 K/mm3 (142-424); Red Blood Count 4.48 M/mm3 (4.20-5.40); Red Cell Distribution Width-SD 40.3 fL; White Blood Count 6.7 K/mm3 (4.8-10.8)
[2025-09-15 16:23] LABS: Albumin Level 4.3 g/dl (3.5-5.0); Chloride 102 mmol/L (98-107); Potassium 4.1 mmoL/L (3.5-5.1); Sodium 139 mmol/L (136-145)
[2025-09-15 16:25] LABS: Alanine Aminotransferase 14 U/L (12-78); Aspartate Amino Transferase 25 U/L (14-36); Blood Urea Nitrogen 13 mg/dl (7-17); Creatinine Clearance Estimated 186 mL/min (50-200); Creatinine,Serum 0.70 mg/dl (0.52-1.04); Estimated Glomerular Filt Rate 95 ml/min (>60); GFR (African American) 115 ML/MIN (>60)
[2025-09-15 16:26] LABS: Albumin/Globulin Ratio 1.4 (1.1-1.8); Alkaline Phosphatase 71 U/L (38-126); Bilirubin,Total 0.3 mg/dl (0.2-1.3); Calcium 9.2 mg/dl (8.4-10.2); Globulin 3.0 g/dL (1.3-3.2); Glucose 85 mg/dl (74-100); Lipase 128 U/L (23-300); Magnesium 2.2 mg/dl (1.6-2.3); Total Protein,Serum 7.3 g/dl (6.3-8.2)
[2025-09-15] MEDS: KETOROLAC 30MG/ML VIAL 30 MG IM (16:26)
[2025-09-15 16:40] VITALS: BP 103/63; PULSE 55; RESP 20; TEMP 36.9; O2SAT 98
[2025-09-15 17:13] LABS: Anion Gap 15.1 mEq/L (5-15); Carbon Dioxide 26 mmol/L (22.0-30.0)
== END 2025-09-15 16:45 | disposition home or self-care (01) ==
PROVIDERS: Nurse Practitioner; Emergency Provider Student in an Organized Health Care Education/Training Program; PCP Family Medicine
DX: M79.604 Pain in right leg (principal); M79.605 Pain in left leg; M79.641 Pain in right hand; M79.642 Pain in left hand; H92.03 Otalgia, bilateral
CPT/HCPCS: 80053; 83690; 83735; 85025; 96372; 99283; J1885

== ENCOUNTER 2025-09-18 08:33 | Outpatient (CLI) | payer OTHER, SELFPAY ==
[2025-09-18 21:29] LABS: Hematocrit 45.8 % (37.0-47.0); Hemoglobin 15.5 g/dL (12.2-16.2); Immature Granulocytes % 0.3 %; Mean Corpuscular HGB Conc 33.8 g/dL (31.8-35.4); Mean Corpuscular Hemoglobin 30.4 pg (27.0-31.2); Mean Corpuscular Volume 89.8 fl (81-99); Nucleated Red Blood Cells % 0 %; Platelet Count 440 K/mm3 (142-424); Red Blood Count 5.10 M/mm3 (4.20-5.40); Red Cell Distribution Width-SD 40.3 fL; White Blood Count 7.6 K/mm3 (4.8-10.8)
[2025-09-18 21:53] LABS: Anion Gap 15.5 mEq/L (5-15); Blood Urea Nitrogen 19 mg/dl (7-17); Calcium 10.0 mg/dl (8.4-10.2); Carbon Dioxide 25 mmol/L (22.0-30.0); Chloride 95 mmol/L (98-107); Creatinine,Serum 0.70 mg/dl (0.52-1.04); Estimated Glomerular Filt Rate 95 ml/min (>60); GFR (African American) 115 ML/MIN (>60); Magnesium 2.2 mg/dl (1.6-2.3); Potassium 4.5 mmoL/L (3.5-5.1); Sodium 131 mmol/L (136-145)
[2025-09-18 22:01] LABS: Glucose 49 mg/dl (74-100)
[2025-09-18 22:02] LABS: Total Iron Binding Capacity 335 ug/dL (265-497)
[2025-09-18 22:27] LABS: Iron 82 ug/dL (37-170)
[2025-09-18 23:03] LABS: Ferritin 42.7 ng/ml (6.24-137)
== END 2025-09-18 23:59 ==
LOC: LAB.DROPOF 09-20 08:34
PROVIDERS: PCP Student in an Organized Health Care Education/Training Program; Visit Provider Student in an Organized Health Care Education/Training Program
DX: D50.9 Iron deficiency anemia, unspecified (principal); E83.42 Hypomagnesemia; E87.6 Hypokalemia
CPT/HCPCS: 80048; 82728; 83540; 83550; 83735; 85025

== ENCOUNTER 2025-09-20 16:03 | Outpatient (CLI) | payer OTHER, SELFPAY ==
[2025-09-20 16:58] LABS: Anion Gap 12.9 mEq/L (5-15); Blood Urea Nitrogen 17 mg/dl (7-17); Calcium 9.5 mg/dl (8.4-10.2); Carbon Dioxide 25 mmol/L (22.0-30.0); Chloride 97 mmol/L (98-107); Creatinine,Serum 0.80 mg/dl (0.52-1.04); Estimated Glomerular Filt Rate 81 ml/min (>60); GFR (African American) 98 ML/MIN (>60); Glucose 82 mg/dl (74-100); Potassium 3.9 mmoL/L (3.5-5.1); Sodium 131 mmol/L (136-145)
== END 2025-09-20 23:59 | disposition home or self-care (01) ==
LOC: LAB 16:04
PROVIDERS: PCP Student in an Organized Health Care Education/Training Program; Visit Provider Student in an Organized Health Care Education/Training Program
DX: E16.2 Hypoglycemia, unspecified (principal); E87.1 Hypo-osmolality and hyponatremia
CPT/HCPCS: 36415; 80048

== ENCOUNTER 2025-10-01 18:07 | Emergency (ER) | payer OTHER, SELFPAY ==
[2025-10-01 18:53] VITALS: BP 126/86; PULSE 90; RESP 19; TEMP 36.7; O2SAT 97; BMI 37.1
[2025-10-01 20:31] VITALS: BP 115/85; PULSE 83; O2SAT 98
--- NOTE | 2025-10-01 20:43 | ED_ITS ---
Discharge Plan Disposition Patient Disposition: Home, Self-Care Condition: Good Prescriptions Prescriptions: New pseudoephedrine HCl [Nasal Decongestant (pseudoeph)] 30 mg tablet 30 mg PO Q6H 5 Days Qty: 20 0RF No Action cetirizine 10 mg tablet 10 mg PO atorvastatin 10 mg tablet See Rx Instructions .ROUTE .COMPLEX Qty: 90 2RF Dose Instruction: TAKE 1 TABLET BY MOUTH AT BEDTIME NIGHTLY Rx Instructions: TAKE 1 TABLET BY MOUTH AT BEDTIME NIGHTLY ferrous sulfate [FeroSul] 325 mg (65 mg iron) tablet See Rx Instructions .ROUTE .COMPLEX Qty: 90 2RF Dose Instruction: TAKE 1 TABLET BY MOUTH ONCE DAILY Rx Instructions: TAKE 1 TABLET BY MOUTH ONCE DAILY omeprazole 40 mg capsule,delayed release(DR/EC) 40 mg PO DAILY Qty: 90 1RF diclofenac sodium [Voltaren Arthritis Pain] 1 % gel 2 g topical QID Qty: 100 3RF Rx Instructions: apply to single elbow, wrist or hand; for hand includes palm/fingers/back of hand lisinopril-hydrochlorothiazide 10-12.5 mg tablet See Rx Instructions .ROUTE .COMPLEX Qty: 90 2RF Dose Instruction: TAKE 1 TABLET BY MOUTH ONCE DAILY Rx Instructions: TAKE 1 TABLET BY MOUTH ONCE DAILY ergocalciferol (vitamin D2) [Vitamin D2] 1,250 mcg (50,000 unit) capsule See Rx Instructions .ROUTE .COMPLEX Qty: 90 1RF Dose Instruction: TAKE 1 CAPSULE BY MOUTH ONCE WEEKLY Rx Instructions: TAKE 1 CAPSULE BY MOUTH ONCE WEEKLY diclofenac sodium 75 mg tablet,delayed release (DR/EC) 75 mg PO BID PRN (Reason: for pain) Qty: 60 4RF buspirone 5 mg tablet See Rx Instructions .ROUTE .COMPLEX Qty: 90 1RF Dose Instruction: TAKE 1 TABLET BY MOUTH ONCE DAILY Rx Instructions: TAKE 1 TABLET BY MOUTH ONCE DAILY ropinirole 1 mg tablet See Rx Instructions .ROUTE .COMPLEX Qty: 90 1RF Dose Instruction: TAKE 1 TABLET BY MOUTH AT BEDTIME NIGHTLY; ADMINISTER 1-3 HOURS BEFORE BEDTIME Rx Instructions: TAKE 1 TABLET BY MOUTH AT BEDTIME NIGHTLY; ADMINISTER 1-3 HOURS BEFORE BEDTIME ibuprofen 800 mg tablet 800 mg PO Q8H PRN (Reason: pain) Qty: 30 0RF acetaminophen 500 mg capsule 1,000 mg PO Q6H PRN (Reason: pain) Qty: 30 0RF Referrals Follow up/Referrals: Conrad Najera DO [Primary Care Provider, Family Practice] - See instructions Activity Restrictions/Add. Instructions Additional Instructions/Restrictions: Your workup was negative here in the emergency department. I will call you if one of your swabs comes back negative. Take Tylenol and Motrin at home for symptoms. Return to the emergency department if needed. You can take Sudafed to help with your ear ache and fluid behind your ears. Follow-up with your primary care provider. Clinical Impressions Clinical Impression: Bilateral leg pain Print Language Print Language: Vietnamese Discharge ED Provider: Clemencia Licea General Adult HPI General Chief complaint: Shortness of Breath/Dyspnea Stated complaint: Fever,earache,body aches Time Seen by Provider: 10/01/25 20:23 Mode of Arrival: Ambulatory Source of Information: Patient Description of Symptoms (Recalled from ER Triage Doc. by RN): pt presents to ED c/o shortness of breath with ambulation, runny nose, bilateral ear congestion. symptoms began today History of Present Illness HPI narrative: Patient is a 35-year-old female who presented to the emergency department with concern for bilateral leg pain that started earlier today. Patient states that she had did have 1 episode of shortness of breath earlier today that has since resolved. Patient does report some runny nose bilateral ear pain. Patient denies any fevers or other upper respiratory symptoms except for mild runny nose. Patient denies any abdominal pain nausea vomiting or diarrhea. Patient states that she has not been around anyone that has been sick. Patient denies any recent surgeries. Patient does not take any daily medications. Patient denies any recent travel long distance. Patient denies any history of blood clots. Patient denies any hormones. Related Data Home Medications ?Medication ?Instructions ?Recorded ?Confirmed cetirizine 10 mg tablet 10 mg PO 05/27/25 09/18/25 Previous Rx's ?Medication ?Instructions ?Recorded lisinopril 10 See Rx Instructions .Route 0 01/28/25 mg-hydrochlorothiazide 12.5 mg .COMPLEX #90 tabs tablet atorvastatin 10 mg tablet See Rx Instructions .Route 0 05/27/25 .COMPLEX #90 ea ferrous sulfate 325 mg (65 mg See Rx Instructions .Rou te 05/27/25 iron) tablet (FeroSul) .COMPLEX #90 tabs omeprazole 40 mg capsule,delayed 40 mg PO DAILY #90 ca ps 05/27/25 release diclofenac sodium 1 % topical gel 2 g topical QID #100 grams 06/24/25 (Voltaren Arthritis Pain) ergocalciferol (vitamin D2) 1,250 See Rx Instructions .Route 06/24/25 mcg (50,000 unit) capsule (Vitamin .COMPLEX #90 caps D2) diclofenac sodium 75 mg 75 mg PO BID PRN for pain #6 0 tabs 09/02/25 tablet,delayed release acetaminophen 500 mg capsule 1,000 mg (2 x 500 mg) PO Q6H PRN 09/15/25 pain #30 caps ibuprofen 800 mg tablet 800 mg PO Q8H PRN pain #30 t abs 09/15/25 buspirone 5 mg tablet See Rx Instructions .Route 1 11/28/24 .COMPLEX #90 tabs ropinirole 1 mg tablet See Rx Instructions .Route 1 11/28/24 .COMPLEX #90 tabs pseudoephedrine HCl 30 mg tablet 30 mg PO Q6H 5 days # 20 tabs 10/01/25 (Nasal Decongestant (pseudoephedrine)) Allergies Allergy/AdvReac Type Severity Reaction Status Date / Time amoxicillin (AMOXICILLIN) Allergy Unknown Rash Verified 09/18/25 09:23 Penicillins (PENICILLINS) Allergy Unknown Rash Verified 09/18/25 09:23 [facility] Disclaimer: The information contained in this section may have been updated after the patient was seen, as this information can be updated by other users. Medical History Eustachian tube dysfunction Swelling Hand pain, right Ganglion cyst of dorsum of right wrist Influenza A Rib pain Shortness of breath URI (upper respiratory infection) Chest pain Strain of right trapezius muscle Atypical chest pain Nausea vomiting and diarrhea Diarrhea Body aches Muscle strain of left wrist Abdominal pain Low back strain I recommend patient doing PT or visiting a chiroprator Pneumonia Depression Sinusitis Acute bronchitis Anxiety Asthma Hypertension Upper respiratory infection, viral Acute wrist pain Choking episode Viral syndrome Otitis media Viral upper respiratory infection Conjunctivitis Mucus plugging of bronchi Acute bronchitis Strep throat Surgical History History of section Family History (Updated 09/18/25 @ 09:25 by JAYMIE Torrez) Father Hypertension Mother Hypertension Social History Smoking Status: Never smoker alcohol intake: never current occupational status: other Travel in the last 8 weeks?: None Have you lived/traveled outside US in past 30 days?: No Contact w/someone who lives/traveled outside US past 30 days?: No Exposure to someone with infectious disease in past 14 days?: No Do you have a fever (greater than 100.4 F or 38 C)?: No Have you tested positive for COVID-19?: No Exposed to someone with COVID-19 in past 14 days?: No Do you have a sore throat?: No Do you have a cough?: No Do you have any weakness?: No Do you have any diarrhea?: No Are you experiencing any unusual bleeding?: No Do you have any muscle aches/pain?: No Do you have any abdominal pain?: No Are you experiencing loss of taste or smell?: No Other Medical History Have you received the Flu Vaccine for this season: No Have you received the Pneumonia Vaccine: No ROS Obtained: Yes All systems reviewed & no additional complaints except as documented and Yes Systems reviewed as appropriate & no additional complaints except as documented Physical Exam General General appearance: alert and in no apparent distress Head Head exam: atraumatic, normocephalic and normal inspection Eye Eye exam: Present normal appearance, PERRL and EOMI; Absent scleral icterus ENT ENT exam: Present normal exam, normal oropharynx, mucous membranes moist, TM's normal bilaterally (mild fluid behind bilateral ears, not bulging, no erythema) and normal external ear exam Neck Neck exam: Present normal inspection and full ROM Chest Chest inspection: Present normal inspection and symmetric chest wall rise Respiratory Respiratory exam: Present normal lung sounds bilaterally; Absent respiratory distress or wheezes Cardiovascular Cardiovascular exam: Present regular rate, normal rhythm and normal heart sounds Abdominal Exam Abdominal exam: Present soft and distention; Absent tenderness, guarding or rebound Extremities Exam Extremities exam: Present normal inspection, full ROM and other (no posterior calf tenderness) Back Exam Back exam: Present normal inspection and full ROM Neurological Exam Neurological exam: Present alert and oriented X3 Psychiatric Psychiatric exam: Present normal affect and normal mood Skin Skin exam: Present warm and dry Medical Decision Making Medical Records Medical records reviewed: Yes I reviewed the patient's medical records. Screening: Per USPSTF and CDC recommendations, given the prevalence of disease in our region, it is our hospital?s policy to screen for HIV and viral Hepatitis for all patients aged 18 and over and those with ongoing risk factors. Jordan Inquiry Pt receiving controlled substance: No Vital Signs: 10/01/25 18:53 10/01/25 20:31 10/01/25 21:00 Temperature 98.0 F Temperature Source Oral Pulse Rate 83 88 Pulse Rate [Left Radial] 90 Respiratory Rate 19 Blood Pressure 115/85 124/85 Blood Pressure [Right Arm] 126/86 Blood Pressure Mean 97 103 Blood Pressure Mean [Right Arm] 99 Blood Pressure Source Blood Pressure Position 02 Sat by Pulse Oximetry 97 98 97 Oxygen Delivery Method Room Air 10/01/25 21:23 10/01/25 21:26 Temperature 97.8 F Temperature Source Oral Pulse Rate 75 Pulse Rate [Left Radial] Respiratory Rate 14 Blood Pressure 124/85 Blood Pressure [Right Arm] Blood Pressure Mean Blood Pressure Mean [Right Arm] Blood Pressure Source Automatic Cuff Blood Pressure Position Sitting 02 Sat by Pulse Oximetry 98 Oxygen Delivery Method Room Air Room Air Lab Data Lab results reviewed: Yes I reviewed the patient's lab results. Lab Results 10/01/25 20:35: WBC 8.7, RBC 4.58, Hgb 13.9, Hct 39.5, MCV 86.2, MCH 30.3, MCHC 35.2, RDW 11.9, Plt Count 432 H, MPV 8.8, Neut % (Auto) 61.3, Lymph % (Auto) 29.1, [place] % (Auto) 6.2, Eos % (Auto) 3.0, Baso % (Auto) 0.3, Neut # (Auto) 5.3, Lymph # (Auto) 2.5, [place] # (Auto) 0.5, Eos # (Auto) 0.3, Baso # (Auto) 0.0, S odium 135 L, Potassium 3.7, Chloride 103, Carbon Dioxide 24, Anion Gap 11.7, BUN 18 H, Creatinine 0.80, Estimated Creat Clear 160, Estimated GFR 81, Est GFR ( Amer) 98, Glucose 76, Calcium 9.3, Total Bilirubin 0.3, AST 24, ALT 22, Alkaline Phosphatase 87, Total Creatine Kinase 43, Total Protein 7.6, Albumin 4.5, Globulin 3.1, Albumin/Globulin Ratio 1.5, Serum HCG, Qual Negative 10/01/25 20:35 10/01/25 20:35 Orders (Tests/Meds): ORDERS Category Date Time Status CBC w/Auto Diff [Complete Blood Count Auto Diff] Stat Lab 10/01/25 20:35 Completed CK [Creatine Kinase] Stat Lab 10/01/25 20:35 Completed CMP [Comprehensive Metabolic Panel] Stat Lab 10/01/25 20:35 Completed HCG Qualitative, Serum Stat Lab 10/01/25 20:35 Completed Medical Decision Narrative: Patient is an otherwise healthy 35-year-old female who presented to the emergency department with bilateral leg pain. On arrival, patient was hemodynamically stable with unremarkable vital signs. Differential includes but not limited to: Body aches, viral syndrome, rhabdo, electrolyte abnormalities, amongst others. On exam, patient had no swelling of the bilateral lower extremities. Patient had no erythema. Patient had no posterior calf tenderness. There is no unilateral swelling. Patient had an unremarkable pulmonary exam, patient had bilateral normal breath sounds. Patient was not hypoxic not tachycardic. Patient was otherwise negative for pulmonary embolism. Low concern for pneumonia without shortness of breath or fevers at this time. Patient's labs were reviewed and interpreted by myself: CBC showed no leukocytosis, hemoglobin was stable. CMP was unremarkable. CK was normal. test was negative. Patient's respiratory swab did not come back prior to being discharged, patient was notified that should be called if her respiratory results come back positive. Critical Care Critical Care Time Critical Care Time: No
[2025-10-01 21:00] VITALS: BP 124/85; PULSE 88; O2SAT 97
[2025-10-01 21:02] LABS: Hematocrit 39.5 % (37.0-47.0); Hemoglobin 13.9 g/dL (12.2-16.2); Immature Granulocytes % 0.1 %; Mean Corpuscular HGB Conc 35.2 g/dL (31.8-35.4); Mean Corpuscular Hemoglobin 30.3 pg (27.0-31.2); Mean Corpuscular Volume 86.2 fl (81-99); Nucleated Red Blood Cells % 0 %; Platelet Count 432 K/mm3 (142-424); Red Blood Count 4.58 M/mm3 (4.20-5.40); Red Cell Distribution Width-SD 37.3 fL; White Blood Count 8.7 K/mm3 (4.8-10.8)
[2025-10-01 21:09] LABS: Alanine Aminotransferase 22 U/L (12-78); Albumin Level 4.5 g/dl (3.5-5.0); Albumin/Globulin Ratio 1.5 (1.1-1.8); Alkaline Phosphatase 87 U/L (38-126); Anion Gap 11.7 mEq/L (5-15); Aspartate Amino Transferase 24 U/L (14-36); Bilirubin,Total 0.3 mg/dl (0.2-1.3); Blood Urea Nitrogen 18 mg/dl (7-17); Calcium 9.3 mg/dl (8.4-10.2); Carbon Dioxide 24 mmol/L (22.0-30.0); Chloride 103 mmol/L (98-107); Creatine Kinase 43 U/L (30-135); Creatinine Clearance Estimated 160 mL/min (50-200); Creatinine,Serum 0.80 mg/dl (0.52-1.04); Estimated Glomerular Filt Rate 81 ml/min (>60); GFR (African American) 98 ML/MIN (>60); Globulin 3.1 g/dL (1.3-3.2); Glucose 76 mg/dl (74-100); Potassium 3.7 mmoL/L (3.5-5.1); Sodium 135 mmol/L (136-145); Total Protein,Serum 7.6 g/dl (6.3-8.2)
[2025-10-01 21:20] LABS: HCG Qualitative, Serum Negative (Negative)
[2025-10-01 21:23] VITALS: O2SAT 98
[2025-10-01 21:26] VITALS: BP 124/85; PULSE 75; RESP 14; TEMP 36.6; O2SAT 98
== END 2025-10-01 21:31 | disposition home or self-care (01) ==
PROVIDERS: Emergency Provider Student in an Organized Health Care Education/Training Program; PCP Student in an Organized Health Care Education/Training Program
DX: M79.604 Pain in right leg (principal); M79.605 Pain in left leg; H92.03 Otalgia, bilateral; R09.81 Nasal congestion
CPT/HCPCS: 80053; 82550; 84703; 85025; 99283; 99284